=== PATIENT | female | born 1960 | race Hispanic/Latino ===

== ENCOUNTER 2021-10-18 16:38 | Emergency (ER) | payer BC ==
[2021-10-18] MEDS ORDERED: HYDROCODONE/CHLORPHEN 5 ML/OSYR ONE (17:25)
[2021-10-18] MEDS ORDERED: ONDANSETRON 4 MG (ODT) TAB ONE (17:26)
--- NOTE | 2021-10-18 19:46 | ER ---
Nurse's Notes [facility] Name: Patti Friedman Age: 61 yrs Sex: Female : 1960 Arrival Date: 10/18/2021 Time: 16:40 Bed 17 Private MD: Diagnosis: Coronavirus infection, unspecified Presentation: 10/18 16:54 Chief complaint: Patient states: pt presented with body aches, congestion, and cough rojo x3. Coronavirus screen: Vaccine status: Patient reports being unvaccinated. Ebola Screen: Patient denies travel to an Ebola-affected area in the 21 days before illness onset. Initial Sepsis Screen: Does the patient meet any 2 criteria? Does the patient have a suspected source of infection? No. Patient's initial sepsis screen is negative. Risk Assessment: Do you want to hurt yourself or someone else? Patient reports no desire to harm self or others. Onset of symptoms was October 15, 2021. 16:54 Method Of Arrival: Wheelchair rojo 16:54 Acuity: MIGUEL ANGEL 3 rojo Triage Assessment: 16:59 General: Appears in no apparent distress. Behavior is calm, cooperative. Pain: rojo Complains of pain in generlized body aches. Historical: - Allergies: 16:59 No Known Allergies; rojo - PMHx: 16:59 None; rojo - PSHx: 16:59 None; rojo - Immunization history:: Adult Immunizations up to date. - Social history:: Smoking status: Patient denies any tobacco usage or history of. Screenin:00 Abuse screen: Denies threats or abuse. Denies injuries from another. Nutritional bp screening: No deficits noted. Tuberculosis screening: No symptoms or risk factors identified. Fall Risk None identified. Assessment: 17:00 General: SEE TRIAGE NOTE. bp Vital Signs: 16:54 BP 111 / 75; Pulse 75; Resp 18; Temp 98.5; Pulse Ox 99% ; Weight 97.07 kg; Height 5 ft. rojo 2 in. (157.48 cm); 16:54 Body Mass Index 39.14 (97.07 kg, 157.48 cm) rojo ED Course: 16:40 Patient arrived in ED. as 16:59 Triage completed. rojo 16:59 Arm band placed on. rojo 17:00 Wicho Wilson, AMADOU is Primary Nurse. bp 17:00 Tao Johnson NP is PHCP. pm1 17:00 Farshad Orosco MD is Attending Physician. pm1 17:00 Patient has correct armband on for positive identification. Bed in low position. Call bp light in reach. Side rails up X2. Adult w/ patient. 20:28 No provider procedures requiring assistance completed. Patient did not have IV access ll3 during this emergency room visit. Administered Medications: 17:20 Drug: Tussionex Pennkinetic ER (chlorpheniramine-hydrocodone) Suspension 5 ml Route: PO;bp 17:20 Drug: Zofran (Ondansetron) 4 mg Route: PO; bp Medication: 17:00 VIS not applicable for this client. bp Outcome: 19:45 Discharge ordered by . pm1 20:28 Discharged to home ambulatory, with significant other. ll3 20:28 Condition: stable 20:28 Discharge instructions given to patient, significant other, Instructed on discharge instructions, follow up and referral plans. medication usage, Demonstrated understanding of instructions, follow-up care, medications, Prescriptions given X 2. 20:29 Patient left the ED. ll3 Signatures: Zuleika Turcios as Tao Johnson, STEFANI APPLICATION HELPER pm1 Wicho Wilson, RN RN bp Bernice Bajwa, AMADOU RN ll3 Donita Ramsay RN RN rojo
--- NOTE | 2021-10-18 19:46 | EDPHYS ---
Physician Documentation [facility] Name: Patti Friedman Age: 61 yrs Sex: Female : 1960 Arrival Date: 10/18/2021 Time: 16:40 Bed 17 Private MD: ED Physician Farshad Orosco HPI: 10/18 17:35 This 61 yrs old Female presents to ER via Wheelchair with complaints of r/o pm1 covid. 17:35 The patient or guardian reports cough, flu symptoms. pm1 17:35 Onset: The symptoms/episode began/occurred 3 day(s) ago. Severity of symptoms: in the pm1 emergency department the symptoms are actually worse. Modifying factors: The symptoms are alleviated by nothing, the symptoms are aggravated by nothing. Associated signs and symptoms: Pertinent positives: sore throat, Pertinent negatives: chest pain, Shortness of breath. The patient has not recently seen a physician. Patient took home test for COVID and was negative today. Historical: - Allergies: 16:59 No Known Allergies; rojo - PMHx: 16:59 None; rojo - PSHx: 16:59 None; rojo - Immunization history:: Adult Immunizations up to date. - Social history:: Smoking status: Patient denies any tobacco usage or history of. ROS: 17:35 Cardiovascular: Negative for chest pain, palpitations, and edema. pm1 17:35 Eyes: Negative for injury, pain, redness, and discharge. 17:35 Abdomen/GI: Negative for abdominal pain, nausea, vomiting, diarrhea, and constipation, Back: Negative for injury and pain, MS/Extremity: Negative for injury and deformity, Skin: Negative for injury, rash, and discoloration. 17:35 Neuro: Negative for headache, weakness, numbness, tingling, and seizure. 17:35 Constitutional: Positive for body aches, chills, fever. 17:35 ENT: Positive for rhinorrhea, sore throat, Negative for ear pain. 17:35 Respiratory: Positive for cough, Negative for shortness of breath. 17:35 All other systems are negative. Exam: 17:35 Constitutional: This is a well developed, well nourished patient who is awake, alert, pm1 and in no acute distress. Head/Face: Normocephalic, atraumatic. 17:35 Back: No spinal tenderness. No costovertebral tenderness. Full range of motion. Skin: Warm, dry with normal turgor. Normal color with no rashes, no lesions, and no evidence of cellulitis. MS/ Extremity: Pulses equal, no cyanosis. Neurovascular intact. Full, normal range of motion. 17:35 Eyes: Exam is negative for acute changes, Pupils: no acute changes, Extraocular movements: no acute changes, Conjunctiva: no acute changes, no injection. 17:35 ENT: Exam is negative for acute changes, Mouth: no acute changes, Lips: normal, moist, Oral mucosa: normal, pink and intact, moist. 17:35 Cardiovascular: Exam negative for acute changes, Rate: normal, Rhythm: regular, Pulses: no pulse deficits are appreciated, Heart sounds: normal, normal S1and S2. 17:35 Respiratory: Exam negative for acute changes, respiratory distress, shortness of breath, Breath sounds: are clear throughout. 17:35 Neuro: Exam negative for acute changes, Orientation: is normal, Mentation: is normal, Motor: is normal, moves all fours. Vital Signs: 16:54 BP 111 / 75; Pulse 75; Resp 18; Temp 98.5; Pulse Ox 99% ; Weight 97.07 kg; Height 5 ft. rojo 2 in. (157.48 cm); 16:54 Body Mass Index 39.14 (97.07 kg, 157.48 cm) rojo MDM: 17:06 Patient medically screened. pm1 19:44 Data reviewed: vital signs. Data interpreted: Pulse oximetry: on room air is 99 %. pm1 Interpretation: normal. Counseling: I had a detailed discussion with the patient and/or guardian regarding: the historical points, exam findings, and any diagnostic results supporting the discharge/admit diagnosis, lab results, the need for outpatient follow up, to return to the emergency department if symptoms worsen or persist or if there are any questions or concerns that arise at home. 10/18 17:01 Order name: COVID-19 SARS RT PCR (Document "Date of Onset" if Symptomatic); Complete pm1 Time: 19:44 10/18 17:35 Order name: Influenza Screen (A ; Complete Time: 18:06 EDMS 10/18 17:35 Order name: Group A Streptococcus Rapid Sc; Complete Time: 18:06 EDMS 10/18 18:03 Order name: Throat Culture EDMS Administered Medications: 17:20 Drug: Tussionex Pennkinetic ER (chlorpheniramine-hydrocodone) Suspension 5 ml Route: PO;bp 17:20 Drug: Zofran (Ondansetron) 4 mg Route: PO; bp Disposition Summary: 10/18/21 19:45 Discharge Ordered Location: Home pm1 Problem: new pm1 Symptoms: have improved pm1 Condition: Stable pm1 Diagnosis - Coronavirus infection, unspecified pm1 Followup: pm1 - With: Emergency Department - When: As needed - Reason: Worsening of condition Followup: pm1 - With: Private Physician - When: 2 - 3 days - Reason: Recheck today's complaints, Continuance of care, Re-evaluation by your physician Discharge Instructions: - Discharge Summary Sheet pm1 - COVID-19 pm1 - COVID-19 Frequently Asked Questions pm1 - 10 Things You Can Do to Manage Your COVID-19 Symptoms at Home - [facility] pm1 - COVID-19: Quarantine vs. Isolation - [facility] pm1 Forms: - Medication Reconciliation Form pm1 - Thank You Letter pm1 - Antibiotic Education pm1 - Prescription Opioid Use pm1 - Work release form pm1 Prescriptions: - ondansetron 4 mg Oral tablet,disintegrating - place 1 tablet by TRANSLINGUAL route every 8 hours As needed; 12 tablet; pm1 Refills: 0, Product Selection Permitted - Guaifenesin AC 10-100 mg/5 mL Oral Liquid - take 10 milliliters by ORAL route every 4 hours As needed; 240 milliliter; pm1 Refills: 0, Product Selection Permitted Signatures: Dispatcher [employer] EDMS Tao Johnson NP BOAT BUILDER pm1 Wicho Wilson, RN RN bp Keeley-Donita Mendez RN RN rojo Corrections: (The following items were deleted from the chart) 18:45 18:34 Influenza Screen (A \\T\\ B)+BA.LAB.BRZ ordered. EDMS EDMS 18:45 18:34 Group A Streptococcus Rapid Sc+BA.LAB.BRZ ordered. EDMS EDMS
[2021-10-18 20:41] VITALS: BP 111/75; TEMP 98.5; O2SAT 99
== END 2021-10-18 20:29 | disposition home or self-care (01) ==
LOC: ER 16:38
DX: R05.9 Cough, unspecified (principal); U07.1 COVID-19; R09.81 Nasal congestion; R52 Pain, unspecified
CPT/HCPCS: 87070; 87081; 87804 ×2; 99283; U0003; Q0162

== ENCOUNTER 2022-02-02 18:07 | Emergency (ER) | payer BC ==
--- OUTSIDE RECORDS SUMMARY | 2022-02-02 18:10 | XMS REPORT | Continuity of Care Document ---
:1960 Author Organization [facility] t Address [address] [place] [address] Care Team Providers Name Role Phone Lab, Adc Fam Pob I Attending Clinician Unavailable Narciso Burdick Attending Clinician NARCISO HICKS Attending Clinician Unavailable Payers Payer Name Policy Type Policy Number Effective Date Expiration Date S ource Problems Condition Condition Condition Status Onset Resolution Last Treating Co mments Source Name Details Category Date Date Treatment Clinician Date Microalbum Microalbum Problem Active C ommon inuria inuria Spirit - [facility] 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 [facility] Hyperlipid Hyperlipid Problem Active C ommon emia, emia, Spirit unspecifie unspecifie - [facility] hyperlipid hyperlipid [facility] emia type emia type [facility] Adult BMI Adult BMI Problem Active Com mon 39.0-39.9 39.0-39.9 Spir it kg/sq m kg/sq m [facility] Allergies, Adverse Reactions, Alerts Allergy Allergy Status Severity Reaction(s) Onset Inactive Treating Comm ents Source Name Type Date Date Clinician NO KNOWN Drug Active Univers ALLERGIE Class ity of [facility] Social History Social Habit Start Date Stop Date Quantity Comments Source [facility] Status Start Date Stop Date Source [facility] Medications Ordered Filled Start Stop Current Ordering Indication Dosage Frequency Signature Comments Components Source Medication Medication Date Date Medication? Clinician (SIG) Name Name GlidevonteZIDE GlipiZIDE Yes Cornel 1 tablet Common 09-18 Chen Spirit 00:00: - [facility] Procedures This patient has no known procedures. Encounters Start End Encounter Admission Attending Care Care Encounter Source Date/Time Date/Time Type Type Clinicians Facility Department ID 2019-10-24 2019-10-24 Laboratory Lab, Adc Fam Pob I [facility] [id number] Univers 10:44:27 11:04:27 Only Narciso Hicks [id number] [facility] [place] [id number] Enio as Professio [id number] Ak dical nal [address] 2019-10-24 2019-10-24 Outpatient R KURT [facility] [id number] Univers 10:40:00 10:40:00 NARCISO jason [facility] 2019-10-24 2019-10-24 Letter Kurt [facility] [id number] Univers 00:00:00 00:00:00 (Out) Narciso Cosme [id number] it [facility] [place] [id number] Enio as Professio [phone] [facility] [address] 2017-10-02 2017-10-02 Out[facility] [id number] Common 11:39:00 11:39:[address] [facility] 2017-09-18 2017-09-18 Out[facility] [id number] Common 09:39:00 09:39:[address] [facility] 2017-09-04 2017-09-04 [facility] [id number] Common 15:29:00 15:29:[address] [facility] 2017-08-10 2017-08-10 Outpatient Edison Gaytan [id number] Common 09:45:00 09:45:00 t thereNow [facility] TAPQUAD [facility] Results This patient has no known results.
[2022-02-02 19:20] LABS: Urine Blood Trace-intact (Negative); Urine Glucose 3+ (Negative); Urine Protein Negative (Negative); Urine Specific Gravity 1.025 (1.005-1.030)
[2022-02-02 19:30] LABS: Absolute Lymphocytes (CBC) 2.7 K/uL (0.7-4.9); Hematocrit 44.6 % (36.0-45.0); Lymphocytes % 34.1 % (15.3-44.8); MCV 88.5 fL (80-100); RBC Red Blood Cell Count 5.03 M/uL (3.86-4.86)
[2022-02-02 19:46] LABS: ALT/SGPT 26 U/L (12-78); Albumin 3.7 g/dL (3.4-5.0); Alkaline Phosphatase 159 U/L (45-117); BUN Blood Urea Nitrogen 19 mg/dL (7-18); Bicarbonate 26 mmol/L (21-32); Bilirubin Total 0.5 mg/dL (0.2-1.0); Creatine Phosphokinase 81 U/L (26-192); Glomerular Filtration Rate 99 ml/min (=/>90); Glucose Level 316 mg/dL (74-106); Protein, Total 7.5 g/dL (6.4-8.2); Sodium Level 134 mmol/L (136-145)
[2022-02-02 19:47] LABS: AST/SGOT 25 U/L (15-37); Bilirubin Direct < 0.1 mg/dL (0-0.2); Magnesium 1.8 mg/dL (1.8-2.4); Potassium 4.8 mmol/L (3.5-5.1)
[2022-02-02] MEDS ORDERED: NA CHLORIDE 0.9% 50 ML IV ONE (19:50)
[2022-02-02] MEDS ORDERED: DIPHENHYDRAMINE 50 MG/ML VIAL ONE (19:50)
[2022-02-02] MEDS ORDERED: METOCLOPRAMIDE 10 MG/2mL INJ ONE (19:50)
[2022-02-02] MEDS ORDERED: NA CHLORIDE 0.9% 1,000 ML ONE (19:50)
--- NOTE | 2022-02-02 21:18 | ER ---
Nurse's Notes [facility] Name: Patti Friedman Age: 62 yrs Sex: Female : 1960 Arrival Date: 02/02/2022 Time: 18:10 Bed 3 Private MD: Diagnosis: Post-concussive syndrome Presentation: 02/02 18:36 Chief complaint: Patient states: Sent from urgent care due to symptoms not improving. ld1 Pt reports falling at work on 01/26/2022 - hit head on concrete. Unknown reason for fall or possible syncopal episode - remembers hitting head. Does not know if LOC occurred. Seen in this ER the day off fall - pt c/o dizziness and headache today. Coronavirus screen: At this time, the client does not indicate any symptoms associated with coronavirus-19. Ebola Screen: No symptoms or risks identified at this time. Initial Sepsis Screen: Does the patient meet any 2 criteria? No. Patient's initial sepsis screen is negative. Does the patient have a suspected source of infection? No. Patient's initial sepsis screen is negative. Risk Assessment: Do you want to hurt yourself or someone else? Patient reports no desire to harm self or others. Onset of symptoms was February 02, 2022. 18:36 Method Of Arrival: Ambulatory ld1 18:36 Acuity: MIGUEL ANGEL 3 ld1 Triage Assessment: 18:38 Headache History: The patient has had previous headaches and this one is similar to ld1 previous episodes. General: Appears in no apparent distress. comfortable, Behavior is calm, cooperative, appropriate for age. Pain: Complains of pain in face Pain does not radiate. Pain currently is 6 out of 10 on a pain scale. Quality of pain is described as pressure, throbbing, Pain began 2-3 days ago. Is intermittent. EENT: No signs and/or symptoms were reported regarding the EENT system. Neuro: Level of Consciousness is awake, alert, obeys commands, Oriented to person, place, time, situation, Reports dizziness, headache. Cardiovascular: Capillary refill < 3 seconds Patient's skin is warm and dry. Respiratory: Airway is patent Respiratory effort is even, unlabored. GI: Abdomen is round non-distended. : No signs and/or symptoms were reported regarding the genitourinary system. Derm: No signs and/or symptoms reported regarding the dermatologic system. Musculoskeletal: No signs and/or symptoms reported regarding the musculoskeletal system. Historical: - Allergies: 18:38 No Known Allergies; ld1 - PMHx: 18:38 diabetes mellitus; ld1 - PSHx: 18:38 None; ld1 - Immunization history:: Adult Immunizations up to date, Client reports having NOT received the Covid vaccine. - Social history:: Smoking status: Patient denies any tobacco usage or history of. Patient/guardian denies using alcohol. Screenin:25 Abuse screen: Denies threats or abuse. Nutritional screening: No deficits noted. vc1 Tuberculosis screening: No symptoms or risk factors identified. Fall Risk None identified. Assessment: 19:00 Reassessment: see triage assessment. mb9 20:28 Reassessment: Patient and/or family updated on plan of care and expected duration. Pain vc1 level reassessed. Patient is alert, oriented x 3, equal unlabored respirations, skin warm/dry/pink. Patient states feeling better. Patient states symptoms have improved. Pain: Complains of pain in HEAD Pain does not radiate. Pain currently is 4 out of 10 on a pain scale. Vital Signs: 18:36 BP 149 / 87; Pulse 79; Resp 18; Temp 97.6(TE); Pulse Ox 98% on R/A; Weight 99.34 kg; ld1 Height 5 ft. 2 in. (157.48 cm); Pain 6/10; 19:02 BP 127 / 79; Pulse 72; Resp 18; Pulse Ox 95% on R/A; vc1 20:00 BP 129 / 72; Pulse 63; Resp 13; Pulse Ox 96% on R/A; vc1 21:31 BP 138 / 86; Pulse 73; Resp 21 S; Pulse Ox 99% on R/A; as6 18:36 Body Mass Index 40.06 (99.34 kg, 157.48 cm) ld1 ED Course: 18:10 Patient arrived in ED. am2 18:38 Triage completed. ld1 18:38 Arm band placed on right wrist. EKG completed in triage. Results shown to MD. ld1 19:04 Farooq Arevalo, RN is Primary Nurse. as6 19:06 Amber Weeks MD is Attending Physician. sd2 19:09 Basic Metabolic Panel Sent. mb9 19:09 CBC with Diff Sent. mb9 19:09 CPK Sent. mb9 19:09 Hepatic Function Sent. mb9 19:09 Magnesium Sent. mb9 19:09 Protime (+inr) Sent. mb9 19:09 Ptt, Activated Sent. mb9 19:09 Inserted saline lock: 20 gauge in right upper arm, using aseptic technique. Blood mb9 collected. 19:19 Urine collected: clean catch specimen, cloudy. 20:25 Patient has correct armband on for positive identification. Bed in low position. Client vc1 placed on continuous cardiac and pulse oximetry monitoring. NIBP monitoring applied. 21:30 No provider procedures requiring assistance completed. IV discontinued, intact, as6 bleeding controlled, No redness/swelling at site. Pressure dressing applied. Administered Medications: 20:00 Drug: Reglan (metoCLOPramide) 10 mg Route: IVP; Site: right forearm; vc1 21:30 Follow up: Response: No adverse reaction as6 20:00 Drug: Benadryl (diphenhydrAMINE) 25 mg Route: IVP; Site: right forearm; vc1 21:29 Follow up: Response: No adverse reaction as6 20:01 Drug: NS 0.9% 1000 ml Route: IV; Rate: 1 bolus; Site: right forearm; vc1 21:30 Follow up: Response: No adverse reaction; IV Status: Completed infusion; IV Intake: as6 1000ml Medication: 21:31 VIS not applicable for this client. as6 Intake: 21:30 IV: 1000ml; Total: 1000ml. as6 Outcome: 21:18 Discharge ordered by . sd2 21:31 Discharged to home ambulatory, with family. as6 21:31 Condition: stable 21:31 Discharge instructions given to patient, Instructed on discharge instructions, follow up and referral plans. Demonstrated understanding of instructions, follow-up care. 21:31 Patient left the ED. as6 Signatures: Mony Abraham am2 Radha De La Cruz, RN RN ld1 Jennifer Sung Farooq Arevalo RN RN as6 America Mckeon RN RN vc1 Amber Weeks MD MD sd2 Nimco Jackson RN RN mb9 Corrections: (The following items were deleted from the chart) 18:40 18:36 Pulse 79bpm; Resp 18bpm; Pulse Ox 98% RA; Temp 97.6F Temporal; 99.34 kg; Height 5 ld1 ft. 2 in.; BMI: 40.0; Pain 6/10; ld1
--- NOTE | 2022-02-02 21:19 | EDPHYS ---
Physician Documentation [facility] Name: Patti Friedman Age: 62 yrs Sex: Female : 1960 Arrival Date: 02/02/2022 Time: 18:10 Bed 3 Private MD: ED Physician Amber Weeks HPI: 02/02 19:33 This 62 yrs old Female presents to ER via Ambulatory with complaints of sd2 Dizziness, Headache, Fall Injury - 1 wk ago. 19:34 62-year-old female with a history of diabetes presents with chief complaint of sd2 dizziness and headache as well as nausea since she had a fall 1 week ago at work. She reports she did hit her head and was seen at our ER with a negative CT scan at that time. She was seen for a 7-day follow-up at urgent care today for Workmen's Compensation and they told her to come here due to her symptoms not improving. However, the patient has had improved symptoms at home when she is not engaging in stimulating activities. Today was the first day she left the house and that is when she started having the symptoms again. She states she was sent to the ER for a repeat CT scan. She is not currently on blood thinners and has no other complaints. . Historical: - Allergies: 18:38 No Known Allergies; ld1 - PMHx: 18:38 diabetes mellitus; ld1 - PSHx: 18:38 None; ld1 - Immunization history:: Adult Immunizations up to date, Client reports having NOT received the Covid vaccine. - Social history:: Smoking status: Patient denies any tobacco usage or history of. Patient/guardian denies using alcohol. ROS: 19:34 Constitutional: Negative for fever, chills, and weight loss, Eyes: Negative for injury, sd2 pain, redness, and discharge, Cardiovascular: Negative for chest pain, palpitations, and edema, Respiratory: Negative for shortness of breath, cough, wheezing. Abdomen/GI: Negative for abdominal pain, vomiting, diarrhea. Positive for nausea. MS/Extremity: Negative for injury and deformity, Skin: Negative for injury, rash, and discoloration, Neuro: Positive for headache and dizziness. NEgative for numbness and tingling. Exam: 19:34 Constitutional: This is a well developed, well nourished patient who is awake, alert, sd2 and in no acute distress. Head/Face: Normocephalic, atraumatic. Eyes: EOMI, normal conjunctiva bilaterally Chest/axilla: Normal chest wall appearance and motion. Nontender with no deformity. Cardiovascular: Regular rate and rhythm with a normal S1 and S2. No gallops, murmurs, or rubs. 2+ distal pulses. Respiratory: Lungs have equal breath sounds bilaterally, clear to auscultation and percussion. No rales, rhonchi or wheezes noted. No increased work of breathing, no retractions or nasal flaring. Abdomen/GI: Soft, non-tender, with normal bowel sounds. No guarding or rebound. No evidence of tenderness throughout. Skin: Warm, dry with normal turgor. Normal color with no rashes, no lesions, and no evidence of cellulitis. MS/ Extremity: Pulses equal, no cyanosis. Neurovascular intact. Full, normal range of motion. Ambulatory without difficulty. Neuro: Awake and alert, GCS 15, oriented to person, place, time, and situation. Cranial nerves II-XII grossly intact. Motor strength 5/5 in all extremities. Sensory grossly intact. Cerebellar exam normal. Normal gait. Psych: Awake, alert, with orientation to person, place and time. Behavior, mood, and affect are within normal limits. Vital Signs: 18:36 BP 149 / 87; Pulse 79; Resp 18; Temp 97.6(TE); Pulse Ox 98% on R/A; Weight 99.34 kg; ld1 Height 5 ft. 2 in. (157.48 cm); Pain 6/10; 19:02 BP 127 / 79; Pulse 72; Resp 18; Pulse Ox 95% on R/A; vc1 20:00 BP 129 / 72; Pulse 63; Resp 13; Pulse Ox 96% on R/A; vc1 21:31 BP 138 / 86; Pulse 73; Resp 21 S; Pulse Ox 99% on R/A; as6 18:36 Body Mass Index 40.06 (99.34 kg, 157.48 cm) ld1 MDM: 19:06 Patient medically screened. sd2 19:34 Differential Diagnosis Differential diagnosis includes but is not limited to: Fracture, sd2 contusion, abrasion, closed head injury, pneumothorax, intra-abdominal injury, intracranial hemorrhage, spinal injury among others. Data reviewed: vital signs, nurses notes, old medical records. 21:16 Data reviewed: lab test result(s), EKG, radiologic studies. Counseling: I had a sd2 detailed discussion with the patient and/or guardian regarding: the historical points, exam findings, and any diagnostic results supporting the discharge/admit diagnosis, lab results, the need for outpatient follow up, to return to the emergency department if symptoms worsen or persist or if there are any questions or concerns that arise at home. Medical screen evaluation completed. [facility] emergency medical condition absent. ED course: Labs reviewed. Labs are grossly within normal clinical limits. NO significant acute abnormalities. Patient's symptoms improved at this time with treatment. Suspect post-concussive syndrome. Pt with negative CT already and symptoms are consistent with concussion. I do not see any indication for repeat CT at this time as symptoms have been improving until an exacerbation today when she left the home. Pt is not on blood thinners to be concerned for delayed bleed. Advised continued supportive measures and follow up outpatient. Pt in agreement and verbalizes understanding of discharge plan and strict return precautions.. 02/02 18:35 Order name: Basic Metabolic Panel; Complete Time: 19:49 ld1 02/02 18:35 Order name: CBC with Diff; Complete Time: 19:49 ld1 02/02 18:35 Order name: CPK; Complete Time: 19:49 ld1 02/02 18:35 Order name: Hepatic Function; Complete Time: 19:49 ld1 02/02 18:35 Order name: Magnesium; Complete Time: 19:49 ld1 02/02 18:35 Order name: Protime (+inr); Complete Time: 19:49 ld1 02/02 18:35 Order name: Ptt, Activated; Complete Time: 19:49 ld1 02/02 18:35 Order name: EKG; Complete Time: 18:36 ld1 02/02 18:35 Order name: Cardiac monitoring; Complete Time: 19:09 ld1 02/02 18:35 Order name: EKG - Nurse/Tech; Complete Time: 18:40 ld1 02/02 19:20 Order name: Urine Dipstick-Ancillary; Complete Time: 19:24 EDMS 02/02 18:35 Order name: IV Saline Lock; Complete Time: 19:08 ld1 02/02 18:35 Order name: Labs collected and sent; Complete Time: 19:08 ld1 02/02 18:35 Order name: NPO; Complete Time: 19:09 ld1 02/02 18:35 Order name: O2 Per Protocol; Complete Time: 18:40 ld1 02/02 18:35 Order name: O2 Sat Monitoring; Complete Time: 18:40 ld1 02/02 18:35 Order name: Urine Dipstick-Ancillary (obtain specimen); Complete Time: 19:20 ld1 Administered Medications: 20:00 Drug: Reglan (metoCLOPramide) 10 mg Route: IVP; Site: right forearm; vc1 21:30 Follow up: Response: No adverse reaction as6 20:00 Drug: Benadryl (diphenhydrAMINE) 25 mg Route: IVP; Site: right forearm; vc1 21:29 Follow up: Response: No adverse reaction as6 20:01 Drug: NS 0.9% 1000 ml Route: IV; Rate: 1 bolus; Site: right forearm; vc1 21:30 Follow up: Response: No adverse reaction; IV Status: Completed infusion; IV Intake: as6 1000ml Disposition Summary: 02/02/22 21:18 Discharge Ordered Location: Home sd2 Problem: an ongoing problem sd2 Symptoms: have improved sd2 Condition: Stable sd2 Diagnosis - Post-concussive syndrome sd2 Followup: sd2 - With: Private Physician - When: 2 - 3 days - Reason: Recheck today's complaints, Continuance of care, Re-evaluation by your physician Discharge Instructions: - Discharge Summary Sheet sd2 - Post-Concussion Syndrome sd2 Forms: - Medication Reconciliation Form sd2 - Thank You Letter sd2 - Antibiotic Education sd2 - Prescription Opioid Use sd2 Signatures: Dispatcher [employer] EDRadha Billings RN RN ld1 America Mckeon RN RN 1 Amber Weeks MD MD sd2 Farooq Arevalo RN as6
[2022-02-02 21:36] VITALS: TEMP 97.6
[2022-02-02 21:40] VITALS: BP 138/86; O2SAT 99
--- NOTE | 2022-02-03 16:15 | EKG ---
Test Date: 2022-02-02 Test Time: 18:39:53 Meter Engineer: MAHSA MEASUREMENT RESULTS: Intervals: Rate: 74 ND: 162 QRSD: 70 QT: 394 QTc: 437 [place]: P: 22 ND: 162 QRS: 25 T: 29 INTERPRETIVE STATEMENTS: Sinus rhythm with marked sinus arrhythmia Anterior infarct, age undetermined Abnormal ECG Compared to ECG 10/30/2018 10:44:22 Myocardial infarct finding now present Atrial premature complex(es) no longer present T-wave abnormality no longer present Electronically Signed On 02-03-22 16:14:13 CDT by Simon Stewart
== END 2022-02-02 21:31 | disposition home or self-care (01) ==
LOC: ER 18:07
DX: R42 Dizziness and giddiness (principal); F07.81 Postconcussional syndrome; E11.9 Type 2 diabetes mellitus without complications
CPT/HCPCS: 96361; 93005; 85025; 80048; 36415; 83735; 82550; 85610; 80076; 85730; 81003; 96375; 96374; 99284; J2765; J1200; J7030

== ENCOUNTER 2022-06-20 17:57 | Emergency (ER) | payer BC ==
--- OUTSIDE RECORDS SUMMARY | 2022-06-20 18:01 | XMS REPORT | Continuity of Care Document ---
:1960 Author Organization [facility] t Address [address] [place] [address] Care Team Providers Name Role Phone Lab, [...] Active C ommon inuria inuria Spirit - [facility] Type 2 Type 2 Problem Active Common diabetes diabetes Spirit mellitus mellitus - [facility] with other with other diabetic [facility] kidney kidney Medical complicati complicati Ce nter on on Type 2 Type 2 Problem Active Common diabetes diabetes Spirit mellitus mellitus - [facility] with with hyperglyce hyperglyce [facility] Subclinica Subclinica Problem Active C ommon l l Spirit hypothyroi hypothyroi - [facility] dism dism [facility] 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 emia type emia type [facility] Adult BMI Adult BMI Problem Active Com mon 39.0-39.9 39.0-39.9 Spir it kg/sq m kg/sq m [facility] Allergies, Adverse Reactions, Alerts Allergy Allergy Status Severity Reaction(s) Onset Inactive Treating Comm ents Source Name Type Date Date Clinician NO KNOWN Drug Active Univers ALLERGIE Class ity of [facility] Social History Social Habit Start Date Stop Date Quantity Comments [facility] Sm[facility] Status Start Date Stop Date Source Unknown [facility] Medications Ordered Filled Start Stop Current Ordering Indication Dosage Frequency Signature Comments Components Source Medication Medication Date Date Medication? Clinician (SIG) Name Name GlidevonteZIDE GlipiZIDE Yes Cornel 1 tablet Common 09-18 Chen Spirit 00:00: - [facility] 00 [facility] Procedures This patient has no known procedures. Encounters Start End Encounter Admission Attending Care Care Encounter Source Date/Time Date/Time Type Type Clinicians Facility Department ID 2019-10-24 2019-10-24 Laboratory Lab, Adc Fam Pob I [facility] [id number] Univers 10:44:27 11:04:27 Only Narciso Hicks [id number] ity of [place] [id number] Enio as Professio [phone] Ca dical nal [address] 2019-10-24 2019-10-24 Outpatient R KURT [facility] [id number] Univers 10:40:00 10:40:00 NARCISO jason [facility] 2019-10-24 2019-10-24 Letter Kurt [facility] [id number] Univers 00:00:00 00:00:00 (Out) Narciso Cosme [id number] it y of [place] [id number] Enio as Professio [phone] [facility] [address] 2017-10-02 2017-10-02 Out[facility] [id number] Common 11:39:00 11:39:00 t Mobile [employer] [address] [facility] 2017-09-18 2017-09-18 [facility] [id number] Common 09:39:00 09:39:[address] [facility] 2017-09-04 2017-09-04 Out[facility] [id number] Common 15:29:00 15:29:[address] [facility] 2017-08-10 2017-08-10 Outpatient Edison Gaytan [id number] Common 09:45:00 09:45:00 t Mobile Backstage [facility] Results This patient has no known results.
[2022-06-20 20:18] LABS: Absolute Lymphocytes (CBC) 2.8 K/uL (0.7-4.9); Hematocrit 41.9 % (36.0-45.0); Lymphocytes % 37.4 % (15.3-44.8); MCV 87.4 fL (80-100); MPV 8.7 fL (7.6-11.3)
[2022-06-20 20:23] LABS: Urine Blood 1+ (Negative); Urine Glucose 3+ (Negative); Urine Protein Negative (Negative)
[2022-06-20 20:42] LABS: Albumin 3.7 g/dL (3.4-5.0); Bilirubin Total 0.3 mg/dL (0.2-1.0); Protein, Total 7.1 g/dL (6.4-8.2)
[2022-06-20] MEDS ORDERED: ONDANSETRON 4 MG/2 ML VIAL ONE (21:10)
[2022-06-20] MEDS ORDERED: INSULIN -REGULAR HUMAN 50 UNIT/0.5 ML ML ONE (21:10)
[2022-06-20] MEDS ORDERED: PANTOPRAZOLE 40 MG INJ ONE (21:10)
[2022-06-20] MEDS ORDERED: NA CHLORIDE 0.9% 1,000 ML ONE (21:11)
--- NOTE | 2022-06-20 21:26 | RAD REPORT ---
EXAM DESCRIPTION: CT - Abdomen Pelvis W Contrast - 06/20/2022 9:07 pm CLINICAL HISTORY: Abdominal pain COMPARISON: none. TECHNIQUE: Computed axial tomography of the abdomen pelvis was obtained. 100 cc Isovue-300 was admin istered intravenously. Oral contrast was not requested which limits evaluation of bowel and appendix All CT scans are performed using dose optimization technique as appropriate and may include automated exposure control or mA/KV adjustment according to patient size. FINDINGS: 9 millimeter hepatic cyst Duodenal diverticul Spleen, pancreas, adrenal and kidneys appear unremarkable. Moderate diverticula stem from the colon without visualization of diverticulitis. Normal appendix. No adnexal mass Gallbladder calcification Umbilical hernia. The neck measures 1 centimeter. The herniated sac measures 4.2 centimeters IMPRESSION: Gallbladder calcifications. It is uncertain if these lie within the lumen representing s tones or lie within the the wall. If clinically indicated further evaluation with ultrasound could ob tained. Small to moderate umbilical hernia
--- NOTE | 2022-06-20 22:43 | EDPHYS ---
Physician Documentation [facility] Name: Patti Friedman Age: 62 yrs Sex: Female : 1960 Arrival Date: 06/20/2022 Time: 17:59 Bed 19 Private MD: ED Physician Thai Kwan Historical: - Allergies: 06/20 18:16 No Known Allergies; aa5 - PMHx: 18:16 diabetes mellitus; aa5 - PSHx: 18:16 None; aa5 - Immunization history:: Adult Immunizations unknown. - Social history:: Smoking status: Patient denies any tobacco usage or history of. ROS: 23:17 Constitutional: Negative for fever, chills, and weight loss. kb 23:17 Abdomen/GI: Positive for rectal bleeding. 23:17 All other systems are negative. Vital Signs: 18:14 BP 155 / 85; Pulse 73; Resp 18 S; Temp 97.1(TE); Pulse Ox 99% on R/A; Weight 98.88 kg aa5 (R); Height 5 ft. 3 in. (160.02 cm) (R); 22:01 BP 145 / 71; Pulse 58; Resp 17 S; Pulse Ox 98% on R/A; aa9 18:14 Body Mass Index 38.62 (98.88 kg, 160.02 cm) aa5 MDM: 18:14 Patient medically screened. kb 06/20 18:21 Order name: CBC with Diff kb 06/20 18:21 Order name: CMP kb 06/20 18:21 Order name: Lipase kb 06/20 18:21 Order name: CT Abd/Pelvis - IV Contrast Only kb 06/20 18:21 Order name: IV Saline Lock; Complete Time: 20:07 kb 06/20 18:21 Order name: Labs collected and sent; Complete Time: 20:07 kb 06/20 18:21 Order name: Urine Dipstick-Ancillary (obtain specimen); Complete Time: 20:23 kb 06/20 20:23 Order name: Urine Dipstick-Ancillary; Complete Time: 20:37 EDMS 06/20 20:44 Order name: Comprehensive Metabolic Panel; Complete Time: 20:57 EDMS 06/20 20:44 Order name: Lipase; Complete Time: 20:57 EDMS 06/20 20:50 Order name: CBC with Automated Diff; Complete Time: 20:57 EDMS 06/20 21:27 Order name: CT; Complete Time: 21:33 EDMS 06/20 22:17 Order name: Glucose, Ancillary Testing; Complete Time: 22:41 EDMS Administered Medications: 21:40 Drug: ProTONIX (pantoprazole) 40 mg Route: IVP; Site: right antecubital; aa9 22:13 Follow up: Response: No adverse reaction aa9 21:51 Drug: Insulin Regular Human 5 units {Co-Signature: [email or web address] (Michael Carballo RN).} Route: IVP; aa9 Site: right antecubital; 22:13 Follow up: Response: Blood sugar is lowered aa9 21:58 Drug: NS 0.9% 1000 ml Route: IV; Rate: 1 bolus; Site: right antecubital; aa9 21:58 Drug: Zofran (Ondansetron) 4 mg Route: IVP; Site: right antecubital; aa9 22:13 Follow up: Response: No adverse reaction aa9 Disposition Summary: 06/20/22 22:42 Discharge Ordered Location: Home kb Condition: Stable kb Diagnosis - Other hemorrhoids - externa kb - Hyperglycemia, unspecified kb Followup: kb - With: Emergency Department - When: As needed - Reason: Worsening of condition Followup: kb - With: Private Physician - When: 2 - 3 days - Reason: Recheck today's complaints, Continuance of care, Re-evaluation by your physician Discharge Instructions: - Discharge Summary Sheet kb - Hemorrhoids, [id number] kb - Hyperglycemia, [id number] kb - Type 2 Diabetes Mellitus, Diagnosis, Adult, [id number] kb Forms: - Medication Reconciliation Form kb - Thank You Letter kb - Antibiotic Education kb - Prescription Opioid Use kb Signatures: Dispatcher [employer] EDMS Malaika Gutiérrez, WHITE LEAD GRINDER-C WHITE LEAD GRINDER-Geraldine Dutta, RN RN aa5 Alaina Bartholomew, RN RN aa9 Michael Carballo RN jb4
--- NOTE | 2022-06-20 22:43 | ER ---
Nurse's Notes [facility] Name: Patti Friedman Age: 62 yrs Sex: Female : 1960 Arrival Date: 06/20/2022 Time: 17:59 Bed 19 Private MD: Diagnosis: Other hemorrhoids-externa;Hyperglycemia, unspecified Presentation: 06/20 18:14 Chief complaint: Patient states: bloody stools x 1 today, pt states "there were blood aa5 clots in the toilet". Pt reports vomiting x 2 days ago and abd discomfort. Coronavirus screen: nausea. Ebola Screen: Patient denies travel to an Ebola-affected area in the 21 days before illness onset. Initial Sepsis Screen: Does the patient meet any 2 criteria? No. Patient's initial sepsis screen is negative. Does the patient have a suspected source of infection? No. Patient's initial sepsis screen is negative. Risk Assessment: Do you want to hurt yourself or someone else? Patient reports no desire to harm self or others. Onset of symptoms was June 20, 2022. 18:14 Acuity: MIGUEL ANGEL 3 aa5 18:14 Method Of Arrival: Ambulatory aa5 Triage Assessment: 22:02 General: Appears in no apparent distress. comfortable, Behavior is calm, cooperative. aa9 23:16 : Denies vaginal bleeding. aa9 Historical: - Allergies: 18:16 No Known Allergies; aa5 - PMHx: 18:16 diabetes mellitus; aa5 - PSHx: 18:16 None; aa5 - Immunization history:: Adult Immunizations unknown. - Social history:: Smoking status: Patient denies any tobacco usage or history of. Screenin:01 [facility] ED Fall Risk Assessment (Adult) History of falling in the last 3 months, aa9 including since admission No falls in past 3 months (0 pts) Confusion or Disorientation No (0 pts) Intoxicated or Sedated No (0 pts) Impaired Gait No (0 pts) Mobility Assist Device Used No (0 pt) Altered Elimination No (0 pt) Score/Fall Risk Level 0 - 2 = Low Risk Oriented to surroundings, Maintained a safe environment, Educated pt \\T\\ family on fall prevention, incl call for assistance when getting out of bed. Abuse screen: Denies threats or abuse. Denies injuries from another. Nutritional screening: No deficits noted. Tuberculosis screening: No symptoms or risk factors identified. Assessment: 21:58 Reassessment: Patient appears in no apparent distress at this time. Pain: Complains of aa9 pain in headache. Neuro: Level of Consciousness is awake, alert, obeys commands, Oriented to person, place, time, situation. Respiratory: Airway is patent Respiratory effort is even, unlabored. GI: Reports cramping. :. 22:13 Reassessment: Patient appears in no apparent distress at this time. Patient and/or aa9 family updated on plan of care and expected duration. Pain level reassessed. Patient is alert, oriented x 3, equal unlabored respirations, skin warm/dry/pink. chaperoned Brock FINISHING RANGE FEEDER with rectal exam. 23:16 Reassessment: Patient appears in no apparent distress at this time. Patient and/or aa9 family updated on plan of care and expected duration. Pain level reassessed. Patient is alert, oriented x 3, equal unlabored respirations, skin warm/dry/pink. Patient denies pain at this time. Vital Signs: 18:14 BP 155 / 85; Pulse 73; Resp 18 S; Temp 97.1(TE); Pulse Ox 99% on R/A; Weight 98.88 kg aa5 (R); Height 5 ft. 3 in. (160.02 cm) (R); 22:01 BP 145 / 71; Pulse 58; Resp 17 S; Pulse Ox 98% on R/A; aa9 18:14 Body Mass Index 38.62 (98.88 kg, 160.02 cm) aa5 ED Course: 17:59 Patient arrived in ED. rg4 18:01 Malaika Gutiérrez FNP-C [facility] kb 18:01 Thai Kwan DO is Attending Physician. kb 18:14 Arm band placed on. aa5 18:16 Triage completed. aa5 20:07 CBC with Diff Sent. bc6 20:07 CMP Sent. bc6 20:07 Lipase Sent. bc6 20:07 Inserted saline lock: 20 gauge in right antecubital area, using aseptic technique. bc6 22:02 Alaina Bartholomew, RN is Primary Nurse. aa9 22:02 Patient has correct armband on for positive identification. Bed in low position. Call aa9 light in reach. Side rails up X2. Pulse ox on. NIBP on. 23:16 No provider procedures requiring assistance completed. IV discontinued, intact, aa9 bleeding controlled, No redness/swelling at site. Pressure dressing applied. Administered Medications: 21:40 Drug: ProTONIX (pantoprazole) 40 mg Route: IVP; Site: right antecubital; aa9 22:13 Follow up: Response: No adverse reaction aa9 21:51 Drug: Insulin Regular Human 5 units {Co-Signature: [email or web address] (Michael Carballo RN).} Route: IVP; aa9 Site: right antecubital; 22:13 Follow up: Response: Blood sugar is lowered aa9 21:58 Drug: NS 0.9% 1000 ml Route: IV; Rate: 1 bolus; Site: right antecubital; aa9 21:58 Drug: Zofran (Ondansetron) 4 mg Route: IVP; Site: right antecubital; aa9 22:13 Follow up: Response: No adverse reaction aa9 Medication: 22:02 VIS not applicable for this client. aa9 Outcome: 22:42 Discharge ordered by MD. gutierrez 23:16 Discharged to home ambulatory. aa9 23:16 Condition: stable 23:16 Discharge instructions given to patient, Instructed on discharge instructions, follow up and referral plans. medication usage, Demonstrated understanding of instructions, follow-up care, medications. 23:17 Patient left the ED. aa9 Signatures: Malaika Gutiérrez, FINISHING RANGE FEEDER-C FINISHING RANGE FEEDER-Geraldine Dutta, RN RN aa5 Raysa Quiroz rg4 Alaina Bartholomew RN RN aa9 Shauna Conrad6 Michael Carballo RN jb4
== END 2022-06-20 23:17 | disposition home or self-care (01) ==
LOC: ER 17:57
DX: K64.8 Other hemorrhoids (principal); E11.65 Type 2 diabetes mellitus with hyperglycemia
CPT/HCPCS: 96361; 85025; 36415; 82947; 81003; 83690; 80053; 74177; 96375; 96374; 99284; Q9967; J1815; C9113; J2405; J7030

== ENCOUNTER 2022-06-24 10:44 | Day surgery (SDC) | payer BC ==
--- NOTE | 2022-06-23 13:53 | RAD REPORT ---
EXAM DESCRIPTION: RAD - Chest Pa And Lat (2 Views) - 06/23/2022 1:46 pm CLINICAL HISTORY: PRE OP RIGID PROCTO POSS HEMORRHOIDECTOMY Chest pain. COMPARISON: CHEST PA AND LAT 2 VIEW dated 04/27/2015; CHEST PA AND LAT 2 VIEW dated 05/21/2014; CHEST P A AND LAT 2 VIEW dated 01/26/2013 TECHNIQUE: PA and lateral views of the chest were obtained. FINDINGS: The lungs are hyperexpanded compatible with COPD. The heart is upper limit of normal in si ze. No fracture or aggressive bony process. IMPRESSION: COPD without acute process identified.
[2022-06-24] MEDS ORDERED: CEFAZOLIN SODIUM 1 GM/VIAL ONE (11:06)
[2022-06-24] MEDS ORDERED: NA CHLORIDE 0.9% 1,000 ML ONE (11:06)
[2022-06-24] MEDS ORDERED: BUPIVACAINE 0.5% PF 10 ML VIAL ONE (11:45)
[2022-06-24] MEDS ORDERED: LIDOCAINE 2% MPF 5 ML VIAL ONE (11:47)
[2022-06-24] MEDS ORDERED: FENTANYL CITR 100 MCG/2 ML ONE (11:47)
[2022-06-24] MEDS ORDERED: propofoL 200 MG/20 ML VIAL IV ONE (11:47)
[2022-06-24] MEDS ORDERED: MIDAZOLAM HCL 2 MG/2 ML INJ ONE (11:47)
[2022-06-24] MEDS ORDERED: ONDANSETRON 4 MG/2 ML VIAL ONE (11:47)
--- NOTE | 2022-06-24 12:43 | P.BOP ---
Preoperative diagnosis: BRBPR Postoperative diagnosis: Melena. int and ext hemorrhoid Primary procedure: EUA , anoscopy, rigid proctoscopy Estimated blood loss: none Specimen: none Findings: Large amt of melena on rectum, unable to see active bleeding from hemorrhio Anesthesia: General Complications: None Transferred to: Recovery Room Condition: Good
[2022-06-24 14:22] VITALS: BP 107/62; TEMP 97.7; O2SAT 96
== END 2022-06-24 14:12 | disposition home or self-care (01) ==
LOC: OR 10:44
PROVIDERS: ATTEND Surgery
PROC: 0DJD8ZZ Inspection of Lower Intestinal Tract, Via Natural or Artificial Opening Endoscopic (ICD-10-PCS; principal; 2022-06-24 12:30)
DX: K62.5 Hemorrhage of anus and rectum (principal); K64.8 Other hemorrhoids; K64.4 Residual hemorrhoidal skin tags
CPT/HCPCS: 71046; 82947; J0690; J2001; J2250; J2405; J2704; J3010; J7030

== ENCOUNTER → 2022-06-29 | Day surgery (SDC) | payer BC ==
[~2022-06-29] MED LIST: EPINEPHRINE/PF 1 MG/ML AMP ONE; LIDOCAINE 1% MPF 5 ML VIAL ONE; NA CHLORIDE 0.9% 1,000 ML ONE; propofoL 200 MG/20 ML VIAL IV ONE
[2022-06-29 08:56] VITALS: BP 123/64; TEMP 98.3; O2SAT 100
== END ==
LOC: OR 05:51
PROVIDERS: ATTEND Surgery
PROC: 0DBM8ZX Excision of Descending Colon, Via Natural or Artificial Opening Endoscopic, Diagnostic (ICD-10-PCS; principal; 2022-06-29 07:30)
DX: K92.1 Melena (principal); K57.30 Diverticulosis of large intestine without perforation or abscess without bleeding; K64.4 Residual hemorrhoidal skin tags; K64.8 Other hemorrhoids; D12.5 Benign neoplasm of sigmoid colon
CPT/HCPCS: 82947; 88305; J0171; J2001; J2704; J7030

== ENCOUNTER 2022-09-30 11:34 | Emergency (ER) | payer BC ==
--- OUTSIDE RECORDS SUMMARY | 2022-09-30 11:57 | XMS REPORT | Continuity of Care Document ---
:1960 Author Organization [facility] t Address 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 - [facility] with other with other diabetic [facility] kidney kidney Medical complicati complicati Ce nter on on 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 Adult BMI Adult BMI Problem Active Com mon 39.0-39.9 39.0-39.9 Spir it kg/sq m kg/sq m [facility] Allergies, Adverse Reactions, Alerts Allergy Allergy Status Severity Reaction(s) Onset Inactive Treating Comm ents Source Name Type Date Date Clinician NO KNOWN Drug Active Univers ALLERGIE Class ity of S [facility] Social History Social Habit Start Date Stop Date Quantity Comments Source [facility] Smoking Status Start Date Stop Date Source Unknown if ever smoked [facility] Medications Ordered Filled Start Stop Current Ordering Indication Dosage Frequency Signature Comments Components Source Medication Medication Date Date Medication? Clinician (SIG) Name Name GlidevonteZIDE GlipiZIDE Yes Cornel 1 tablet Common 09-18 Chen Spirit 00:00: - [facility] 00 [facility] Procedures This patient has no known procedures. Encounters Start End Encounter Admission Attending Care Care Encounter Source Date/Time Date/Time Type Type Clinicians Facility Department ID 2019-10-24 2019-10-24 Laboratory Lab, Adc Fam Pob I [facility] 1.2. [id number] Univers 10:44:27 11:04:27 Only Narciso Hicks [id number] ity of [place] [id number] Enio as Professio [phone] De dical nal [address] 2019-10-24 2019-10-24 Outpatient R KURT [facility] [id number] Univers 10:40:00 10:40:00 NARCISO jason [facility] 2019-10-24 2019-10-24 Letter Kurt [facility] [id number] Univers 00:00:00 00:00:00 (Out) Narciso Cosme [id number] it y of [place] [id number] Enio as Professio [phone] [facility] [address] 2017-10-02 2017-10-02 [facility] [id number] Common 11:39:00 11:39:[address] [facility] 2017-09-18 2017-09-18 Out[facility] [id number] Common 09:39:00 09:39:00 [address] [facility] 2017-09-04 2017-09-04 [facility] [id number] Common 15:29:00 15:29:00 [address] [facility] 2017-08-10 2017-08-10 Outpatient Edison Gaytan 13 [id number] Common 09:45:00 09:45:00 t [employer] [facility] [employer] [facility] Results This patient has no known results.
[2022-09-30] MEDS ORDERED: TDAP (DIPHTH,PERTUSS(ACELL),TET VAC) 0.5 ML VIAL IMVAC ONE (12:31)
--- NOTE | 2022-09-30 13:13 | ER ---
Nurse's Notes [facility] Name: Patti Friedman Age: 62 yrs Sex: Female : 1960 Arrival Date: 09/30/2022 Time: 11:34 Bed 24 Private MD: Diagnosis: Contusion of left knee;patellar spur Presentation: 09/30 11:58 Chief complaint: Patient states: A beam fell off hitting her left knee while moving [facility] some beams. Taken ibuprofen x2 prior to arrival. 11:58 Coronavirus screen: Vaccine status: Patient reports being unvaccinated. Ebola Screen: nj Patient denies travel to an Ebola-affected area in the 21 days before illness onset. Initial Sepsis Screen: Does the patient meet any 2 criteria? No. Patient's initial sepsis screen is negative. Does the patient have a suspected source of infection? No. Patient's initial sepsis screen is negative. Risk Assessment: Do you want to hurt yourself or someone else? Patient reports no desire to harm self or others. Onset of symptoms was September 30, 2022. 11:58 Method Of Arrival: Ambulatory [facility] 11:58 Acuity: MIGUEL ANGEL 4 [facility] Historical: - Allergies: 12:46 No Known Allergies; nj1 - PMHx: 12:46 diabetes mellitus; nj1 - Immunization history:: Client reports having NOT received the Covid vaccine. - Social history:: Smoking status: Patient denies any tobacco usage or history of. Screenin:01 [facility] ED Fall Risk Assessment (Adult) History of falling in the last 3 months, [facility] including since admission No falls in past 3 months (0 pts) Confusion or Disorientation No (0 pts) Intoxicated or Sedated No (0 pts) Impaired Gait No (0 pts) Mobility Assist Device Used No (0 pt) Altered Elimination No (0 pt) Score/Fall Risk Level 0 - 2 = Low Risk Oriented to surroundings, Maintained a safe environment, Hourly rounding (assess needs \T\ fall precautionary measures) done. Abuse screen: Denies threats or abuse. Denies injuries from another. Nutritional screening: No deficits noted. Tuberculosis screening: No symptoms or risk factors identified. Assessment: 12:00 General: Appears in no apparent distress. comfortable, Behavior is calm, cooperative, nj appropriate for age. 12:00 Pain: Complains of pain in left knee Pain currently is 5 out of 10 on a pain scale. at nj1 worst was 7 out of 10 on a pain scale. Alleviated by rest, Aggravated by Movement. Neuro: Level of Consciousness is awake, alert, obeys commands, Oriented to person, place, time, situation. Cardiovascular: Patient's skin is warm and dry. Respiratory: Airway is patent Respiratory effort is even, unlabored. Musculoskeletal: Reports pain in left knee. 13:00 Reassessment: Patient appears in no apparent distress at this time. No changes from [facility] previously documented assessment. Patient and/or family updated on plan of care and expected duration. Pain level reassessed. Patient is alert, oriented x 3, equal unlabored respirations, skin warm/dry/pink. Vital Signs: 11:58 BP 133 / 75; Pulse 74; Resp 17; Temp 97.7; Pulse Ox 99% ; Weight 99.79 kg; Height 5 ft. nj1 3 in. ; Pain 5/10; 13:00 BP 124 / 73; Pulse 73; Resp 18; Pulse Ox 96% on R/A; Pain 5/10; nj1 11:58 Body Mass Index 38.97 (99.79 kg, 160.02 cm) nj1 11:58 Pain Scale: Adult nj1 13:00 Pain Scale: Adult nj1 ED Course: 11:36 Patient arrived in ED. mr 11:45 Roro Stallings F[facility]-C [facility] snw 11:45 Kye Diallo MD is Attending Physician. snw 11:48 Anita Zaidi, AMADOU is Primary Nurse. nj1 12:00 Patient has correct armband on for positive identification. Bed in low position. Call [facility] light in reach. Adult w/ patient. 12:46 Triage completed. nj1 12:47 Arm band placed on. nj1 13:01 Knee Left 3 View XRAY In Process Unspecified. EDMS 13:20 Azar wrap to left knee. nj1 13:30 No provider procedures requiring assistance completed. Patient did not have IV access nj during this emergency room visit. Administered Medications: 12:41 Drug: Boostrix Tdap IM 0.5 ml {Note: 4547C, 03/04/2023.} Route: IM; Site: left deltoid; nj1 13:12 Follow up: Response: No adverse reaction nj1 Medication: 12:40 Vaccine Information Statement (VIS) provided today. Questions and/or concerns nj1 addressed. VIS edition date: November 20, 2020. Outcome: 13:12 Discharge ordered by . billy 13:30 Discharged to home via ambulance, with family. nj1 13:30 Condition: stable 13:30 Discharge instructions given to patient, Instructed on discharge instructions, follow up and referral plans. medication usage, Azar wrap Demonstrated understanding of instructions, follow-up care, medications, Azar wrap (compression) 13:43 Patient left the ED. nj1 Signatures: Dispatcher [employer] EDMS Roro Stallings, LUMBER LOADER-C LUMBER LOADER-Csnw BeltranNimco Norma, RN RN nj1 Corrections: (The following items were deleted from the chart) 12:59 12:41 Boostrix Tdap IM 0.5 ml IM in left deltoid nj1 nj1
--- NOTE | 2022-09-30 13:13 | EDPHYS ---
Physician Documentation [facility] Name: Patti Friedman Age: 62 yrs Sex: Female : 1960 Arrival Date: 09/30/2022 Time: 11:34 Bed 24 Private MD: ED Physician Kye Diallo HPI: 09/30 12:09 This 62 yrs old Female presents to ER via Unassigned with complaints of Knee snw Injury. 12:09 The patient presents with an injury, pain, that is acute. The complaints affect the snw left knee. Context: The problem was sustained at work, resulted from a crush injury, from a heavy object, the patient can partially bear weight. Onset: The symptoms/episode began/occurred suddenly, just prior to arrival. Associated signs and symptoms: Pertinent positives: swelling. Severity of symptoms: At their worst the symptoms were moderate. The patient has not experienced similar symptoms in the past. Historical: - Allergies: 12:46 No Known Allergies; nj1 - PMHx: 12:46 diabetes mellitus; nj1 - Immunization history:: Client reports having NOT received the Covid vaccine. - Social history:: Smoking status: Patient denies any tobacco usage or history of. ROS: 12:09 Constitutional: Negative for fever, chills, and weight loss, Eyes: Negative for injury, snw pain, redness, and discharge, ENT: Negative for injury, pain, and discharge, Neck: Negative for injury, pain, and swelling, Cardiovascular: Negative for chest pain, palpitations, and edema, Respiratory: Negative for shortness of breath, cough, wheezing, and pleuritic chest pain, Abdomen/GI: Negative for abdominal pain, nausea, vomiting, diarrhea, and constipation, Back: Negative for injury and pain, : Negative for injury, bleeding, discharge, and swelling, Skin: Negative for injury, rash, and discoloration, Neuro: Negative for headache, weakness, numbness, tingling, and seizure, Psych: Negative for depression, anxiety, suicide ideation, homicidal ideation, and hallucinations. 12:09 MS/extremity: Positive for injury or acute deformity, decreased range of motion, pain, of the left knee. Exam: 12:07 Constitutional: This is a well developed, well nourished patient who is awake, alert, snw and in no acute distress. Head/Face: Normocephalic, atraumatic. Eyes: Pupils equal round and reactive to light, extra-ocular motions intact. Lids and lashes normal. Conjunctiva and sclera are non-icteric and not injected. Cornea within normal limits. Periorbital areas with no swelling, redness, or edema. ENT: Nares patent. No nasal discharge, no septal abnormalities noted. Tympanic membranes are normal and external auditory canals are clear. Oropharynx with no redness, swelling, or masses, exudates, or evidence of obstruction, uvula midline. Mucous membranes moist. Neck: Trachea midline, no thyromegaly or masses palpated, and no cervical lymphadenopathy. Supple, full range of motion without nuchal rigidity, or vertebral point tenderness. No Meningismus. Chest/axilla: Normal chest wall appearance and motion. Nontender with no deformity. No lesions are appreciated. Cardiovascular: Regular rate and rhythm with a normal S1 and S2. No gallops, murmurs, or rubs. Normal PMI, no JVD. No pulse deficits. Respiratory: Lungs have equal breath sounds bilaterally, clear to auscultation and percussion. No rales, rhonchi or wheezes noted. No increased work of breathing, no retractions or nasal flaring. Abdomen/GI: Soft, non-tender, with normal bowel sounds. No distension or tympany. No guarding or rebound. No evidence of tenderness throughout. Back: No spinal tenderness. No costovertebral tenderness. Full range of motion. Neuro: Awake and alert, GCS 15, oriented to person, place, time, and situation. Cranial nerves II-XII grossly intact. Motor strength 5/5 in all extremities. Sensory grossly intact. Cerebellar exam normal. Normal gait. Psych: Awake, alert, with orientation to person, place and time. Behavior, mood, and affect are within normal limits. 12:07 Musculoskeletal/extremity: ROM: limited active range of motion due to pain, in the left knee, limited passive range of motion due to pain, Circulation is intact in all extremities. the left knee Sensation intact. 12:07 Skin: Appearance: normal except for affected area, injury, abrasion(s), very small abrasion noted, of the left knee, contusion(s), that are deep, of the left knee. Vital Signs: 11:58 BP 133 / 75; Pulse 74; Resp 17; Temp 97.7; Pulse Ox 99% ; Weight 99.79 kg; Height 5 ft. nj1 3 in. ; Pain 5/10; 13:00 BP 124 / 73; Pulse 73; Resp 18; Pulse Ox 96% on R/A; Pain 5/10; nj1 11:58 Body Mass Index 38.97 (99.79 kg, 160.02 cm) nj1 11:58 Pain Scale: Adult nj1 13:00 Pain Scale: Adult nj1 MDM: 11:56 Patient medically screened. snw 13:24 Differential diagnosis: dislocation, closed fracture, contusion, abrasion, tendonitis. snw Data reviewed: vital signs, nurses notes, radiologic studies. Counseling: I had a detailed discussion with the patient and/or guardian regarding: the historical points, exam findings, and any diagnostic results supporting the discharge/admit diagnosis, radiology results, the need for outpatient follow up, for definitive care, to return to the emergency department if symptoms worsen or persist or if there are any questions or concerns that arise at home. Special discussion: Based on the history and exam findings, there is no indication for further emergent testing or inpatient evaluation. I discussed with the patient/guardian the need to see the orthopedic surgeon for further evaluation of the symptoms. 09/30 12:03 Order name: Knee Left 3 View XRAY; Complete Time: 13:18 snw 09/30 13:10 Order name: Azar wrap-joint: knee left; Complete Time: 13:41 snw Administered Medications: 12:41 Drug: Boostrix Tdap IM 0.5 ml {Note: 4547C, 03/04/2023.} Route: IM; Site: left deltoid; nj1 13:12 Follow up: Response: No adverse reaction nj1 Disposition: 14:02 I reviewed the patient's care provided by Advanced Practice Provider \T\ agree w/ the jr11 diagnosis \T\ care plan. I personally saw the pt \T\ performed a substantive portion of the visit, incldng all aspects of the (History/Exam/Medical Decision Making). I reviewed the patient's care provided by the Advanced Practice Provider and agree with the diagnosis and treatment plan. Disposition Summary: 09/30/22 13:12 Discharge Ordered Location: Home snw Condition: Stable snw Diagnosis - Contusion of left knee snw - patellar spur snw Followup: snw - With: Emergency Department - When: As needed - Reason: Worsening of condition Followup: snw - With: Private Physician - When: 2 - 3 days - Reason: Recheck today's complaints, Continuance of care, Re-evaluation by your physician Discharge Instructions: - Discharge Summary Sheet snw - Contusion snw - Knee Sprain, Adult snw Forms: - Medication Reconciliation Form snw - Thank You Letter snw - Antibiotic Education snw - Prescription Opioid Use snw Prescriptions: - Diclofenac Sodium 75 mg Oral Tablet Sustained Release - take 1 tablet by ORAL route 2 times per day; 30 tablet; Refills: 0, Product snw Selection Permitted - orphenadrine citrate 100 mg Oral Tablet Sustained Release - take 1 tablet by ORAL route 2 times per day As needed; 20 tablet; Refills: 0, snw Product Selection Permitted Signatures: Dispatcher [employer] EDRoro Romero FNP-C PUBLIC ADDRESS SYSTEM INSTALLER-Csnw Kye Diallo MD MD [id number] Anita Zaidi RN RN nj1
--- NOTE | 2022-09-30 13:17 | RAD REPORT ---
EXAM DESCRIPTION: RAD - Knee Left 3 View - 09/30/2022 12:59 pm CLINICAL HISTORY: Left knee pain FINDINGS: No fracture or dislocation is seen. Marked osteoarthritis medial compartment. Patella femoral compartment also involves Mild lateral subluxation tibia the femur
[2022-09-30 14:30] VITALS: TEMP 97.7
[2022-09-30 14:31] VITALS: BP 124/73; O2SAT 96
== END 2022-09-30 13:43 | disposition home or self-care (01) ==
LOC: ER 11:34
DX: S80.02XA Contusion of left knee, initial encounter (principal); M77.32 Calcaneal spur, left foot; E11.9 Type 2 diabetes mellitus without complications
CPT/HCPCS: 96372; 99284

== ENCOUNTER 2023-02-11 01:57 | Emergency (ER) | payer BC ==
--- OUTSIDE RECORDS SUMMARY | 2023-02-11 02:00 | XMS REPORT | Continuity of Care Document ---
:1960 Author Organization [facility] t Address 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9 39.0-39.9 Spir it kg/sq m kg/sq m [facility] Allergies, Adverse Reactions, Alerts Allergy Allergy Status Severity Reaction(s) Onset Inactive Treating Comm ents Source Name Type Date Date Clinician NO KNOWN Drug Active Univers ALLERGIE Class ity of S [facility] Social History Social Habit Start Date Stop Date Quantity Comments Source [facility] Sm[facility] Status Start Date Stop Date Source Unknown if ever smoked [facility] Medications Ordered Filled Start Stop Current Ordering Indication Dosage Frequency Signature Comments Components Source Medication Medication Date Date Medication? Clinician (SIG) Name Name GlidevonteZIDE GlipiZIDE Yes Cornel 1 tablet Common 09-18 Chen [facility] 00:00: - [facility] 00 [facility] Procedures This patient has no known procedures. Encounters Start End Encounter Admission Attending Care Care Encounter Source Date/Time Date/Time Type Type Clinicians Facility Department ID 2019-10-24 2019-10-24 Laboratory Lab, Adc Fam Pob I [facility] 1.2. [id number] Univers 10:44:27 11:04:27 Only Narciso Hicks [id number] [facility] of [place] [id number] Enio as Professio [phone] Va dical nal [address] 2019-10-24 2019-10-24 Outpatient R KURT [facility] [id number] Univers 10:40:00 10:40:00 NARCISO jason [facility] 2019-10-24 2019-10-24 Letter Kurt [facility] [id number] Univers 00:00:00 00:00:00 (Out) Narciso Cosme [id number] it [facility] [place] [id number] Enio as Professio [phone] [facility] [address] 2017-10-02 2017-10-02 Out[facility] [id number] Common 11:39:00 11:39:[address] [facility] 2017-09-18 2017-09-18 Outpatient [facility] [id number] Common 09:39:00 09:39:[address] [facility] 2017-09-04 2017-09-04 Outpatient [facility] [id number] Common 15:29:00 15:29:[address] [facility] 2017-08-10 2017-08-10 Outpatient Edison Gaytan [id number] Common 09:45:00 09:45:00 t [facility] [facility] [employer] [facility] Results This patient has no known results.
[2023-02-11] MEDS ORDERED: NA CHLORIDE 0.9% 1,000 ML ONE (02:26)
[2023-02-11] MEDS ORDERED: ONDANSETRON 4 MG/2 ML VIAL ONE (02:26)
[2023-02-11] MEDS ORDERED: MORPHINE 4 MG/ML SYR ONE (02:26)
[2023-02-11] MEDS ORDERED: FAMOTIDINE 20 MG/2 ML VIAL IV ONE (02:26)
[2023-02-11 02:45] LABS: Absolute Lymphocytes (CBC) 1.6 K/uL (0.7-4.9); Hematocrit 42.7 % (36.0-45.0); Lymphocytes % 12.6 % (15.3-44.8); MCV 86.9 fL (80-100); MPV 9.1 fL (7.6-11.3); Platelets 242 thou/uL (152-406); RBC Red Blood Cell Count 4.91 M/uL (3.86-4.86)
[2023-02-11 02:53] LABS: SARS-CoV-2 Antigen Rapid Res Negative (Negative)
[2023-02-11 03:00] LABS: Albumin 3.7 g/dL (3.4-5.0); Bilirubin Total 1.8 mg/dL (0.2-1.0); Potassium 3.4 mEq/L (3.5-5.1); Troponin High Sensitivity 4.6 pg/mL (<58.9)
--- NOTE | 2023-02-11 04:42 | EDPHYS ---
Physician Documentation [facility] Name: Patti Friedman Age: 63 yrs Sex: Female : 1960 Arrival Date: 02/11/2023 Time: 01:57 Bed 14 Private MD: ED Physician Xiang Shore HPI: 02/11 02:09 This 63 yrs old Female presents to ER via EMS with complaints of rn Nausea/Vomiting. 02:09 The patient presents to the emergency department with nausea, vomiting, abdominal pain. rn Onset: The symptoms/episode began/occurred yesterday. Possible causes: unknown. The symptoms are aggravated by nothing. The symptoms are alleviated by nothing. Associated signs and symptoms: Pertinent positives: abdominal pain, nausea, vomiting, Pertinent negatives: GI bleeding. Severity of symptoms: At their worst the symptoms were moderate in the emergency department the symptoms are unchanged. The patient has not experienced similar symptoms in the past. Patient reports started yesterday with nausea/vomiting/mid abdominal pain. Glucose in the 300s per EMS. Patient noncompliant with diabetic medication. Reports subjective fever and chills as well as runny nose. No blood in stool.. Historical: - Allergies: 02:06 No Known Allergies; kd3 - PMHx: 02:06 diabetes mellitus; kd3 - Immunization history:: Adult Immunizations up to date. - Social history:: Smoking status: Patient denies any tobacco usage or history of. - Family history:: not pertinent. - Hospitalizations: : No recent hospitalization is reported. ROS: 02:09 Constitutional: Positive for fever ENT: Positive for nasal drainage Cardiovascular: rn Negative for chest pain, palpitations, and edema, Respiratory: Negative for shortness of breath, cough, wheezing, and pleuritic chest pain, Abdomen/GI: Positive for abdominal pain/nausea/vomiting Back: Negative for injury and pain, : Negative for injury, bleeding, discharge, and swelling, MS/Extremity: Negative for injury and deformity, Skin: Negative for injury, rash, and discoloration, Neuro: Positive for generalized weakness Exam: 02:11 Constitutional: This is a well developed, well nourished patient who is awake, alert, rn moaning and will not open her eyes to speak to me Head/Face: Normocephalic, atraumatic. ENT: Dry mucous membranes Cardiovascular: Regular rate and rhythm. No pulse deficits. Respiratory: No increased work of breathing, no retractions or nasal flaring. Abdomen/GI: Soft, tender in all quadrants, no peritoneal signs MS/ Extremity: Pulses equal, no cyanosis. Neurovascular intact. Full, normal range of motion. Equal circumference. Neuro: Awake and alert, GCS 15 06:02 ECG was reviewed by the Attending Physician. rn Vital Signs: 02:03 BP 131 / 71; Pulse 68; Resp 18; Temp 97.8(O); Pulse Ox 99% on R/A; Weight 99.79 kg; kd3 Height 5 ft. 4 in. ; 04:30 BP 134 / 66; Pulse 99; Resp 15 S; Pulse Ox 98% on R/A; lg3 06:31 BP 109 / 50; Pulse 88; Resp 16 S; Pulse Ox 97% on R/A; lg3 02:03 Body Mass Index 37.76 (99.79 kg, 162.56 cm) kd3 MDM: 02:01 Patient medically screened. rn 04:37 Differential diagnosis: Nonspecific abd pain, gastritis, cholecystitis, pancreatitis. rn Data reviewed: vital signs, nurses notes, lab test result(s), radiologic studies, CT scan, ultrasound, and as a result, I will admit patient. Consideration of Admission/Observation Patient was admitted/placed on observation. Escalation of care including admission/observation considered. Management of patient was discussed with the following: Engineering Design Supervisor: Consulted with Dr. Pichardo, states unable to do intraoperative cholangiogram, would prefer GI backup, no GI here so recommends transfer.. Counseling: I had a detailed discussion with the patient and/or guardian regarding the historical points, exam findings, and any diagnostic results supporting the discharge/admit diagnosis, lab results, radiology results, the need to transfer to another facility, for higher level of care, [facility] does not immediately have the required specialist. Response to treatment: the patient's symptoms have markedly improved after treatment, and as a result, I will admit patient. 02/11 02:07 Order name: CBC with Diff; Complete Time: 03:03 rn 02/11 02:07 Order name: CMP; Complete Time: 03:03 rn 02/11 02:07 Order name: Lipase; Complete Time: 03:03 rn 02/11 02:07 Order name: Urinalysis w/ reflexes; Complete Time: 06:03 rn 02/11 02:07 Order name: Flu; Complete Time: 03:03 rn 02/11 02:07 Order name: SARS RAPID; Complete Time: 03:03 rn 02/11 02:07 Order name: Troponin High Sensitivity; Complete Time: 03:03 rn 02/11 05:06 Order name: Urine Culture EDMS 02/11 02:07 Order name: CT Abd/Pelvis - IV Contrast Only rn 02/11 02:07 Order name: US Abdomen Limited rn 02/11 02:07 Order name: EKG; Complete Time: 02:08 rn 02/11 02:07 Order name: IV Saline Lock; Complete Time: 02: rn 02/11 02:07 Order name: Labs collected and sent; Complete Time: rn 02/11 02:07 Order name: EKG - Nurse/Tech; Complete Time: rn EC:02 Rate is 71 beats/min. Rhythm is regular. QRS [place] is Normal. DE interval is normal. QRS rn interval is normal. QT interval is normal. No Q waves. T waves are Normal. No ST changes noted. Clinical impression: NSR w/ Non-specific ST/T Changes. Interpreted by me. Reviewed by me. Administered Medications: 02:28 Drug: Famotidine IVP 20 mg IVP once; dilute with 10 mL 0.9% NaCl; give over 2 minutes lg3 Route: IVP; Site: left antecubital; 06:31 Follow up: Response: No adverse reaction lg3 02:28 Drug: Ondansetron IVP 4 mg IVP once; over 2 minutes Route: IVP; Site: left antecubital; lg3 06:31 Follow up: Response: No adverse reaction; Marked relief of symptoms lg3 02:28 Drug: morphine IVP or IV 4 mg IVP once over 4 mins Route: IVP; Infused Over: 4 mins; lg3 Site: left antecubital; 06:31 Follow up: Response: No adverse reaction; Marked relief of symptoms lg3 02:28 Drug: NS 0.9% IV 500 ml IV at bolus once Route: IV; Rate: bolus; Site: left antecubital;lg3 06:31 Follow up: IV Status: Completed infusion; IV Intake: 500ml lg3 04:45 Drug: Piperacillin-Tazobactam IVPB 3.375 grams IVPB once over 60 mins; (mix in NS 100 lg3 mL) Route: IVPB; Infused Over: 60 mins; Site: left antecubital; 06:31 Follow up: IV Status: Completed infusion; IV Intake: 100ml lg3 Disposition Summary: 02/11/23 04:42 Transfer Ordered Notes: Transfer Location: [facility] rn Reason: Higher level of care rn Condition: Stable rn Problem: new rn Symptoms: have improved rn Accepting Physician: (02/11/23 08:13) [email or web address] Diagnosis - Acute cholecystitis rn - Calculus of gallbladder and bile duct with acute cholecystitis with obstruction rn Forms: - Medication Reconciliation Form rn - SBAR form rn Signatures: Dispatcher [employer] EDMS Xiang Shore MD MD rn Botello, Elizabeth eb Gibson, Lacie, RN RN lg3 Jacinta Burnham, RN RN kd3 Ade Shankar, RN RN ko1 Corrections: (The following items were deleted from the chart) 02:12 02:09 Constitutional: Negative for fever, chills, and weight loss, rn rn 06:51 04:42 Dr. ozuna eb 08:13 06:51 eb ko1
--- NOTE | 2023-02-11 04:42 | ER ---
Nurse's Notes [facility] Name: Patti Friedman Age: 63 yrs Sex: Female : 1960 Arrival Date: 02/11/2023 Time: 01:57 Bed 14 Private MD: Diagnosis: Acute cholecystitis;Calculus of gallbladder and bile duct with acute cholecystitis with obstruction Presentation: 02/11 02:03 Chief complaint: EMS states: PT started having nausea and vomiting that started around kd3 10:30 PM. Pt is a known diabetic that controls her diabetes with diet alone and takes no meds. Pt is alert and oriented X 4. Pt finger stick in route was 368. 22 gauge in the left A/C and NS started. Coronavirus screen: Vaccine status: Patient reports being unvaccinated. Ebola Screen: No symptoms or risks identified at this time. Initial Sepsis Screen: Does the patient meet any 2 criteria? No. Patient's initial sepsis screen is negative. Does the patient have a suspected source of infection? No. Patient's initial sepsis screen is negative. Risk Assessment: Do you want to hurt yourself or someone else? Patient reports no desire to harm self or others. Onset of symptoms was February 11, 2023. 02:03 Method Of Arrival: EMS: [facility] kd3 02:03 Acuity: MIGUEL ANGEL 3 kd3 Triage Assessment: 02:06 General: Appears in no apparent distress. Behavior is calm, cooperative. Pain: kd3 Complains of pain in abdomen. GI: Reports nausea, vomiting. Historical: - Allergies: 02:06 No Known Allergies; kd3 - PMHx: 02:06 diabetes mellitus; kd3 - Immunization history:: Adult Immunizations up to date. - Social history:: Smoking status: Patient denies any tobacco usage or history of. - Family history:: not pertinent. - Hospitalizations: : No recent hospitalization is reported. Screenin:26 [facility] ED Fall Risk Assessment (Adult) History of falling in the last 3 months, lg3 including since admission No falls in past 3 months (0 pts). Abuse screen: Denies threats or abuse. Denies injuries from another. Nutritional screening: No deficits noted. Tuberculosis screening: No symptoms or risk factors identified. Assessment: 02:26 General: Appears in no apparent distress. uncomfortable, Behavior is calm, cooperative. lg3 Pain: Complains of pain in abdomen Pain radiates to back. Neuro: No deficits noted. Davis Agitation-Sedation Scale (RASS): 0 - Alert and Calm Level of Consciousness is awake, alert, obeys commands, Oriented to person, place, time, situation. Cardiovascular: No deficits noted. Denies chest pain, shortness of breath, Capillary refill < 3 seconds Clubbing of nail beds is absent JVD is absent Patient's skin is warm and dry. Respiratory: No deficits noted. Airway is patent Respiratory effort is even, unlabored, Respiratory pattern is regular, symmetrical. GI: Abdomen is round non-distended, obese, Pt is actively vomiting bile, clear fluid, Reports lower abdominal pain, upper abdominal pain, nausea, vomiting. : No deficits noted. No signs and/or symptoms were reported regarding the genitourinary system. EENT: No deficits noted. No signs and/or symptoms were reported regarding the EENT system. Derm: No deficits noted. No signs and/or symptoms reported regarding the dermatologic system. Skin is intact, is healthy with good turgor, Skin is dry, Skin is normal, Skin temperature is warm. Musculoskeletal: No deficits noted. Circulation, motion, and sensation intact. Range of motion: intact in all extremities. 04:30 Reassessment: Patient appears in no apparent distress at this time. No changes from lg3 previously documented assessment. Patient and/or family updated on plan of care and expected duration. Pain level reassessed. Patient is alert, oriented x 3, equal unlabored respirations, skin warm/dry/pink. Patient states symptoms have improved. Vital Signs: 02:03 BP 131 / 71; Pulse 68; Resp 18; Temp 97.8(O); Pulse Ox 99% on R/A; Weight 99.79 kg; kd3 Height 5 ft. 4 in. ; 04:30 BP 134 / 66; Pulse 99; Resp 15 S; Pulse Ox 98% on R/A; lg3 06:31 BP 109 / 50; Pulse 88; Resp 16 S; Pulse Ox 97% on R/A; lg3 02:03 Body Mass Index 37.76 (99.79 kg, 162.56 cm) kd3 ED Course: 02:01 Patient arrived in ED. rn 02:01 Xiang Shore MD is Attending Physician. rn 02:06 Triage completed. kd3 02:06 Arm band placed on left wrist. kd3 02:26 Josefina Coyne, RN is Primary Nurse. lg3 02:26 Patient has correct armband on for positive identification. Placed in gown. Bed in low lg3 position. Call light in reach. Side rails up X 1. Door closed. Noise minimized. Warm blanket given. Family accompanied patient. 02:26 Maintain EMS IV. Dressing intact. Good blood return noted. Site clean \T\ dry. Gauge \T\ lg 3 site: 22 LAC. Patient maintains SpO2 saturation greater than 95% on room air. 02:28 Troponin High Sensitivity Sent. lg3 02:28 SARS RAPID Sent. lg3 02:28 Flu Sent. lg3 02:28 CBC with Diff Sent. lg3 02:28 CMP Sent. lg3 02:28 Lipase Sent. lg3 03:20 US Abdomen Limited In Process Unspecified. EDMS 03:49 CT Abd/Pelvis - IV Contrast Only In Process Unspecified. EDMS 06:00 transfer initiated by Yu with Dorothy Samson from the [facility] [place]. eb 06:33 connected the hospitalist bone worker for [facility] with Dr. Shore for patient eb transfer consultation. 06:41 administrative approval given by Dorothy Mcnamara Rn/ patient has been accepted to [facility] 10 tower bed 1014/ Dr. Kerrie Marti has accepted the patient in transfer/ Dr. Ferris the general surgeon has accepted the patient in consultation without conference with Dr. Shore/ report to be called to [phone]. 06:47 [facility] called for transport ETA 45 min/ [facility] unavailable tp transport.eb 08:12 Provided Education on: transfer. ko1 08:12 No provider procedures requiring assistance completed. Patient transferred, IV remains ko1 in place. Administered Medications: 02:28 Drug: Famotidine IVP 20 mg IVP once; dilute with 10 mL 0.9% NaCl; give over 2 minutes lg3 Route: IVP; Site: left antecubital; 06:31 Follow up: Response: No adverse reaction lg3 02:28 Drug: Ondansetron IVP 4 mg IVP once; over 2 minutes Route: IVP; Site: left antecubital; lg3 06:31 Follow up: Response: No adverse reaction; Marked relief of symptoms lg3 02:28 Drug: morphine IVP or IV 4 mg IVP once over 4 mins Route: IVP; Infused Over: 4 mins; lg3 Site: left antecubital; 06:31 Follow up: Response: No adverse reaction; Marked relief of symptoms lg3 02:28 Drug: NS 0.9% IV 500 ml IV at bolus once Route: IV; Rate: bolus; Site: left antecubital;lg3 06:31 Follow up: IV Status: Completed infusion; IV Intake: 500ml lg3 04:45 Drug: Piperacillin-Tazobactam IVPB 3.375 grams IVPB once over 60 mins; (mix in NS 100 lg3 mL) Route: IVPB; Infused Over: 60 mins; Site: left antecubital; 06:31 Follow up: IV Status: Completed infusion; IV Intake: 100ml lg3 Medication: 08:12 VIS not applicable for this client. ko1 Intake: 06:31 IV: 100ml; Total: 100ml. lg3 06:31 IV: 500ml; Total: 600ml. lg3 Outcome: 04:42 ER care complete, transfer ordered by . rn 08:12 Transferred by private ambulance [place] to [facility], Transfer ko1 form completed. 08:12 Condition: stable 08:12 Instructed on the need for transfer, 08:13 Patient left the ED. ko1 Addendum: 02/13/2023 08:12 Addendum: Culture Results: Positive urine culture. faxed chart to [facility], 10 b [address] tower bed 1014. Signatures: Dispatcher [employer] EDMS Rosemary Stevenson Roman, MD MD rn Botello, Elizabeth eb Gibson, Lacie RN RN lg3 Jacinta Burnham RN RN kd3 Ade Shankar RN RN ko1
[2023-02-11] MEDS ORDERED: NA CHLORIDE 0.9% 100 ML ONE (04:46)
[2023-02-11] MEDS ORDERED: PIPERACIL/TAZO 3.375 GM VIAL IV ONE (04:46)
[2023-02-11 05:04] LABS: Specific Gravity > 1.030 (1.005-1.030); Urine Bacteria <20 /HPF (<20); Urine Bilirubin NEGATIVE (Negative); Urine Blood Negative (Negative); Urine Clarity Turbid (Clear); Urine Color Light-Yellow (Yellow); Urine Glucose 4+ (Over) (Negative); Urine Protein NEGATIVE (Negative); Urine RBC <5 /HPF (None Seen); Urine Urobilinogen Normal (Normal); Urine pH 6.5 (5.0-7.0)
[2023-02-11 08:18] VITALS: TEMP 97.8
[2023-02-11 08:22] VITALS: BP 109/50; O2SAT 97
--- NOTE | 2023-02-11 20:58 | RAD REPORT ---
EXAM DESCRIPTION: CT - Abdomen Pelvis W Contrast - 02/11/2023 6:47 am CLINICAL HISTORY: ABD PAIN COMPARISON: 06/20/2022 TECHNIQUE: CT of the abdomen and pelvis performed following IV administration of iodinated contras t. This exam was performed according to our departmental dose-optimization program, which includes au tomated exposure control, adjustment of the mA and/or kV according to patient size and/or use of iter ative reconstruction technique. FINDINGS: Lung Bases: The visualized lung bases are clear. Bones: Minimal endplate spondylosis. Abdomen: Liver: Hepatomegaly with diffusely decreased density. Small hepatic cyst. Gallbladder: Calcified gallstones with mild gallbladder wall thickening. Spleen, Pancreas, and Adrenal Glands: The spleen, pancreas, and adrenal glands are unremarkable. Kidneys: No hydronephrosis or obstructing calculus. Vasculature: Aortoiliac atherosclerosis. IVC is unremarkable. The portal vein is patent. The proxim al visceral and renal arteries are patent. Stomach: Small hiatal hernia. Duodenal diverticulum. Other: No free intraperitoneal air. No free fluid or lymphadenopathy. Pelvis: Bladder: Air in the urinary bladder may be related to recent catheterization. Bowel: No dilated loops of large or small bowel. Scattered diverticula of the colon. Appendix: Normal appendix. Pelvis: Uterus is not enlarged. IMPRESSION: 1. Cholelithiasis with mild gallbladder wall thickening. These findings could be seen with acute cholecystitis. 2. Hepatomegaly and hepatic steatosis. 3. Diverticulosis without evidence of acute diverticulitis. Electronically signed by: Juancarlos Rivera 02/11/2023 4:23 AM CDT Due to temporary technical issues with the PACS/Fluency reporting system, reports are being signed by the in house radiologists without review as a courtesy to insure prompt reporting. The interpreting radiologist is fully responsible for the content of the report
--- NOTE | 2023-02-11 21:00 | RAD REPORT ---
EXAM DESCRIPTION: US - Abdomen Exam Limited - 02/11/2023 3:18 am CLINICAL HISTORY: ABD PAIN COMPARISON: None. TECHNIQUE: Real-time sonographic images of the gallbladder were obtained using a curved multihertz t ransducer. FINDINGS: Liver: The visualized liver has increased echogenicity. Hepatopedal flow in the portal vei n. Findings confirmed with color and spectral Doppler imaging. The common bile duct measures 0.9 cm . Gallbladder: Shadowing echogenic structures in the gallbladder lumen. Gallbladder wall thickness of 0 .4 cm. Sonographic Elliott's sign not provided. IMPRESSION: 1. Cholelithiasis with gallbladder wall thickening. These findings could be seen with acute cholecystitis. 2. Mild dilation of the common bile duct. If there is concern for biliary obstruction MRCP would pr ovide additional characterization. Electronically signed by: Juancarlos Rivera 02/11/2023 4:20 AM CDT Due to temporary technical issues with the PACS/Fluency reporting system, reports are being signed by the in house radiologists without review as a courtesy to insure prompt reporting. The interpreting radiologist is fully responsible for the content of the report
--- NOTE | 2023-02-14 08:00 | EKG ---
Test Date: 2023-02-11 Test Time: 02:37:26 Principal Clerk: JANEY MEASUREMENT RESULTS: Intervals: Rate: 71 OH: 188 QRSD: 86 QT: 434 QTc: 471 Barto: P: 41 OH: 188 QRS: 32 T: 61 INTERPRETIVE STATEMENTS: Normal sinus rhythm Cannot rule out Anterior infarct, age undetermined Abnormal ECG Compared to ECG 02/02/2022 18:39:53 Sinus arrhythmia no longer present Myocardial infarct finding still present Electronically Signed On 02-14-23 07:53:39 CDT by Simon Stewart
== END 2023-02-11 08:13 | disposition short-term general hospital (02) ==
LOC: ER 01:57
DX: K80.63 Calculus of gallbladder and bile duct with acute cholecystitis with obstruction (principal); Z11.52 Encounter for screening for COVID-19
CPT/HCPCS: 96365; 96361; 93005; 87088; 85025; 81001; 87086; 36415; 87077; 87186; 84484; 83690; 80053; 87804 ×2; 74177; 76705; 96375; 99285; 96366; 87811; Q9967; J2543; J2405; J7030

== ENCOUNTER 2023-03-04 22:43 | Emergency (ER) | payer BC ==
--- OUTSIDE RECORDS SUMMARY | 2023-03-04 22:56 | XMS REPORT | Continuity of Care Document ---
:1960 Author Organization [facility] t Address [address] [place] [address] [place] [id number] Care Team Providers Name Role Phone DORY HU Attending Clinician Unavailable Brock Crews MD Attending Clinician [phone] Dory Hu MD Attending Clinician Octavio HOPKINS, Johan Parker Attending Clinician Tommie Solomon MD Attending Clinician TOMMIE SOLOMON Attending Clinician Unavailable Finn HOPKINS, Tiara Shrestha Attending Clinician [phone] Timo Montez MD Attending Clinician Gisele Kim CRNA Attending Clinician [phone] BERNA REYES Attending Clinician Unavailable Berna Reyes MD Attending Clinician Ed Grover MD Attending Clinician BROCK CREWS Attending Clinician Unavailable Lab, Adc Fam Pob I Attending Clinician Unavailable Narciso Burdick Attending Clinician NARCISO LOGAN Attending Clinician Unavailable DORY HU Admitting Clinician Unavailable Payers Payer Name Policy Type Policy Number Effective Date Expiration Date S ource 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 0-28 [facility] mellitus, mellitus, 00:00: [facility] without without 00 Center long-term long-term current current use of use of insulin insulin Obesity, Obesity, Disease Recurre 2022-[address] [facility] [address] Class III, Class III, nce 0-28 [facility] BMI BMI 00:00: Medical 40-49.9 40-49.9 00 Center (morbid (morbid obesity) obesity) Abdominal Abdominal Disease Active 2022-[address] [facility] [address] pain pain 0-28 [facility] 00:00: Medical 00 [place] Nausea Nausea Disease Active 2022-[address] 0-28 [facility] 00:00: Medical 00 [place] Cholecysti Cholecysti Disease Active 2022-[address] tis tis 0-28 [facility] 00:00: Medical 00 [place] Common Common Disease Active 2022-[address] [facility] [address] bile duct bile duct 0-28 [facility] s dilation dilation 00:00: Medica l 00 [place] Microalbum Microalbum Problem Active C ommon inuria inuria [facility] 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 - [facility] Hyperlipid Hyperlipid Problem Active C ommon emia, emia, Spirit unspecifie unspecifie - [facility] d d hyperlipid hyperlipid [facility] emia type emia type [facility] Adult BMI Adult BMI Problem Active Com mon 39.0-39.9 39.0-39.9 Spir it kg/sq m kg/sq [facility] Allergies, Adverse Reactions, Alerts Allergy Allergy Status Severity Reaction(s) Onset Inactive Treating Comm ents Source Name Type Date Date Clinician NO KNOWN Drug Active Univers ALLERGIE Class ity [facility] NO KNOWN Allergy Active [facility] Family History Family Member Diagnosis Comments Start Date Stop Date Source Natural father Arthritis [facility]fred[facility] Natural [facility] Social History Social Habit Start Date Stop Date Quantity Comments Source History of tobacco Passive smoker [facility]Med Medical [facility] Sexual orientation [facility] Alcohol intake 2023-02-15 2023-02-15 Ex-drinker [facility] St Wilfredo es 00:00:00 00:00:00 (finding) Medical Center History of Social 2023-02-15 2023-02-[address] [facility] function 00:00:00 00:00:00 Medical Center Exposure to 2023-02-01 2023-02-[address] [facility] SARS-CoV-2 (event) 00:00:00 16:24:00 Medica Center Tobacco use and 2023-02-11 2023-02-[address] [facility] exposure 00:00:00 00:00:00 non-user Medical Center History [facility] 2023-02-11 2023-02-[address] [facility] Transport Med 00:00:00 00:00:[address] History [facility] 2023-02-11 2023-02-[address] [facility] Housing Unable to 00:00:00 00:00:00 Medical Center Pay History [facility] 2023-02-11 2023-02-[address] [facility] Housing Places 00:00:00 00:00:00 Medical Ce nter Lived History [facility] 2023-02-11 2023-02-[address] [facility] Housing Homeless 00:00:00 00:00:00 Medical Center Last Year Alcohol Comment 2023-02-11 2023-02-11 drank wine 3x [facility] 00:00:00 00:00:00 this year Medical Center Sex Assigned At [address] [facility] 00:00:00 00:00:00 Medical Center Smoking Status Start Date Stop Date Source Unknown if ever smoked [facility] Never smoked tobacco [facility] Medications Ordered Filled Start Stop Current Ordering Indication Dosage Frequency Signature Comments Components Source Medication Medication Date Date Medication? Clinician (SIG) Name Name insulin 2022-04 Yes 10U QD Inject 10 [facility] glargine -03 Units [facility] (Lantus 00:00: subcutaneo Medi bel Solostar 00 usly Center U-100 nightly. Insulin) 100 unit/mL (3 mL) InPn alcohol 2022-04 Yes Use as [facility] swabs PadM 04-19 directed. Luke s 00:00: Medical 00 Center lancets 2022-04 Yes Use along [facility] gauge Misc 04-19 with [facility] 00:00: glucometer Medical 00 as Center directed TID prior to meals. fluticasone 2022-04- Yes 1{spray QD 1 spray by [facility] propionate 04-19 } Nasal [facility] (FLONASE) 00:00: 23:59 route Medica l 50 00 :00 daily. Center mcg/actuati on nasal spray blood-gluco 2022-04- Yes Use as [facility] se meter 04-19 instructed Luke s kit 00:00: 23:59 . Medical 00 :00 Center traMADoL 2022-04- No 100mg Take [address] [facility] [address] 100 mg Tab 04-18 11-12 mg by [facility]ukes 00:00: 23:59 mouth Medical 00 :00 every 6 Center (six) hours as needed for up to 10 days. Max Daily Amount: 400 mg GlipiZIDE GlipiZIDE 2017-0 Yes Cornel 1 tablet Common 09-18 Chen Spirit 00:00: - [address] Vital Signs Vital Name Observation Time Observation Value Comments Source WEIGHT 2023-02-17 05:04:00 94.847 kg WEIGHT 2023-02-16 05:00:00 95.709 kg WEIGHT 2023-02-15 05:00:00 95.528 kg WEIGHT 2023-02-13 19:31:00 95.346 kg WEIGHT 2023-02-13 05:00:00 96.163 kg WEIGHT 2023-02-12 05:18:00 95.618 kg HEIGHT 2023-02-11 12:21:00 140 cm WEIGHT 2023-02-11 12:21:00 95.981 kg WEIGHT 2023-02-17 05:04:00 94.847 kg WEIGHT 2023-02-16 05:00:00 95.709 kg WEIGHT 2023-02-15 05:00:00 95.528 kg WEIGHT 2023-02-13 19:31:00 95.346 kg WEIGHT 2023-02-13 05:00:00 96.163 kg WEIGHT 2023-02-12 05:18:00 95.618 kg HEIGHT 2023-02-11 12:21:00 140 cm WEIGHT 2023-02-11 12:21:00 95.981 kg WEIGHT 2023-02-17 05:04:00 94.847 kg WEIGHT 2023-02-16 05:00:00 95.709 kg WEIGHT 2023-02-15 05:00:00 95.528 kg WEIGHT 2023-02-13 19:31:00 95.346 kg WEIGHT 2023-02-13 05:00:00 96.163 kg WEIGHT 2023-02-12 05:18:00 95.618 kg HEIGHT 2023-02-11 12:21:00 140 cm WEIGHT 2023-02-11 12:21:00 95.981 kg Systolic blood 2023-02-17 09:00:00 118 mm[Hg] [facility] Diastolic blood 2023-02-17 09:00:00 71 mm[Hg] [facility] Heart rate 2023-02-17 09:00:00 76 /min [facility] Body temperature 2023-02-17 09:00:00 36.61 Echo [facility] Respiratory rate 2023-02-17 09:00:00 20 /min [facility] Oxygen saturation in 2023-02-17 09:00:00 96 /min [facility] Arterial blood by Medical Ce nter Pulse oximetry Body weight 2023-02-17 05:04:00 94.847 kg [facility] BMI 2023-02-17 05:04:00 48.39 kg/m2 [facility] Systolic blood 2023-02-15 05:00:00 127 mm[Hg] [facility] Diastolic blood 2023-02-15 05:00:00 82 mm[Hg] [facility] Respiratory rate 2023-02-15 05:00:00 18 /min [facility] Body weight 2023-02-15 05:00:00 95.528 kg [facility] BMI 2023-02-15 05:00:00 48.74 kg/m2 [facility] Oxygen saturation in 2023-02-15 05:00:00 98 /min [facility] Arterial blood by Medical Ce nter Pulse oximetry Heart rate 2023-02-14 23:00:00 61 /min [facility] Body temperature 2023-02-14 23:00:00 36.44 Echo [facility] Body height 2023-02-11 12:21:00 140 cm [facility] Procedures Procedure Date / Time Performing Clinician Source Performed POCT-GLUCOSE METER 2023-02-17 09:20:00 Neha [facility] CBC W/PLT COUNT & AUTO 2023-02-17 04:03:00 Valentino Demi [facility] CBC W/PLT COUNT & AUTO 2023-02-17 04:03:00 Valentino [facility] BASIC METABOLIC PANEL 2023-02-17 04:03:00 Valentino [facility] MAGNESIUM 2023-02-17 04:03:00 Valentino [facility] PHOSPHORUS 2023-02-17 04:03:00 Valentino [facility] HEPATIC FUNCTION PANEL 2023-02-17 04:03:00 Valentino Demi [facility] POCT-GLUCOSE METER 2023-02-16 21:46:00 Neha [facility] POCT-GLUCOSE METER 2023-02-16 16:07:00 Neha [facility] POCT-GLUCOSE METER 2023-02-16 11:44:00 Neha [facility] POCT-GLUCOSE METER 2023-02-16 07:40:00 [facility] CBC W/PLT COUNT & AUTO 2023-02-16 01:07:00 [facility] W[facility] & AUTO 2023-02-16 01:07:00 [facility] BASIC MET[facility]OLIC PANEL 2023-02-16 01:07:00 [facility] 2023-02-16 01:07:00 Valentino Demijason Garcia [facility] PHOSPHORUS 2023-02-16 01:07:00 Valentino Demi [facility] HEPATIC FUNCTION PANEL 2023-02-16 01:07:00 Valentino Demi [facility] POCT-GLUCOSE METER 2023-02-15 20:42:00 Neason [facility] POCT-GLUCOSE METER 2023-02-15 16:51:00 Neason, [facility] POCT-GLUCOSE METER 2023-02-15 12:29:00 Neason, [facility] POCT-GLUCOSE METER 2023-02-15 10:26:00 Neason, [facility] CHOLECYSTECTOMY, 2023-02-15 08:23:00 Toneva, [facility] CHOLECYSTECTOMY 2023-02-15 08:23:00 Toneva, [facility] CHOLECYSTECTOMY, 2023-02-15 08:16:00 Toneva, [facility] LAPAROSCOPIC [facility] CHOLECYSTECTOMY 2023-02-15 08:16:00 Toneva, [facility] CBC W/PLT COUNT & AUTO 2023-02-15 04:07:[address] [facility] BASIC METABOLIC PANEL 2023-02-15 04:07:[address] [facility] MAGNESIUM 2023-02-15 04:07:00 Shlomo Lopez [facility] PHOSPHORUS 2023-02-15 04:07:[address] [facility] HEPATIC FUNCTION PANEL 2023-02-15 04:07:00 Shlomo Lopez [facility] CBC W/PLT COUNT & AUTO 2023-02-15 04:07:00 John Shlomo [facility] POCT-GLUCOSE METER 2023-02-14 21:00:00 Tommie Sloomon [facility] POCT-GLUCOSE METER 2023-02-14 17:07:00 Johan Cunningham [facility] MISCELLANEOUS LAB ORDER 2023-02-14 13:50:00 Johan Cunningham [facility] POCT-GLUCOSE METER 2023-02-14 11:41:00 Johan Cunningham [facility] POCT-GLUCOSE METER 2023-02-14 09:06:00 Johan Cunningham [facility] REPORT OF PROCEDURE - 2023-02-14 08:53:27 Berna Reyes [facility] ENDOSCOPY [facility] [place] ERCP 2023-02-14 08:44:00 Berna Reyes [facility] ERCP, WITH SPHINCTEROTOMY 2023-02-14 08:18:00 Berna Reyes am [facility] PROCEDURE W/ C-ARM 2023-02-14 08:18:00 Berna Reyes [facility] ERCP, WITH BALLOON SWEEP 2023-02-14 08:18:00 Berna Reyes [facility] OF BILE DUCTS [facility] PROTHROMBIN TIME/INR 2023-02-14 05:00:00 Falguni Méndez [facility] CBC W/PLT COUNT & AUTO 2023-02-14 04:53:00 Lopez Shlomo [facility] BASIC METABOLIC PANEL 2023-02-14 04:53:[address] [facility] MAGNESIUM 2023-02-14 04:53:00 [facility] PHOSPHORUS 2023-02-14 04:53:00 [facility] HEPATIC FUNCTION PANEL 2023-02-14 04:53:[address] [facility] CBC W/PLT COUNT & AUTO 2023-02-14 04:53:00 Shlomo Lopez [facility] POCT-GLUCOSE METER 2023-02-13 21:05:00 Johan Cunningham [facility] POCT-GLUCOSE METER 2023-02-13 17:20:00 Johan Cunningham [facility] POCT-GLUCOSE METER 2023-02-13 12:23:00 Johan Cunningham [facility] ECG 12-LEAD 2023-02-13 09:00:27 EvelinAlex Brittany [facility] ECG 12-LEAD 2023-02-13 09:00:27 Unknown, Hl7 Doctor [facility] ECG 12-LEAD 2023-02-13 09:00:27 Unknown, Hl7 Doctor [facility] POCT-GLUCOSE METER 2023-02-13 07:19:00 Octavio Weisbrod [facility] CBC W/PLT COUNT & AUTO 2023-02-13 05:10:[address] [facility] BASIC METABOLIC PANEL 2023-02-13 05:10:00 [facility] MAGNESIUM 2023-02-13 05:10:00 [facility] PHOSPHORUS 2023-02-13 05:10:00 [facility] HEPATIC FUNCTION PANEL 2023-02-13 05:10:00 [facility] CBC W/PLT COUNT & AUTO 2023-02-13 05:10:00 [facility] ABORH, MANUAL 2023-02-12 20:33:00 Funmi Ramirez [facility] POCT-GLUCOSE METER 2023-02-12 20:20:00 Johan Cunningham [facility] TYPE AND SCREEN, AUTOMATED 2023-02-12 20:17:00 Shaggy [facility] POCT-GLUCOSE METER 2023-02-12 16:21:00 Johan Cunningham [facility] POCT-GLUCOSE METER 2023-02-12 12:43:00 Dory Hu [facility] CBC W/PLT COUNT & AUTO 2023-02-12 08:54:00 Sylvester Valentino [facility] COMPREHENSIVE METABOLIC 2023-02-12 08:54:00 Sylvester Valentino [facility] CBC W/PLT COUNT & AUTO 2023-02-12 08:54:00 Sylvester Valentino [facility] POCT-GLUCOSE METER 2023-02-12 08:33:00 Dory Hu [facility] POCT-GLUCOSE METER 2023-02-11 22:29:00 Dory Hu [facility] POCT-GLUCOSE METER 2023-02-11 16:55:00 Dory Hu [facility] POCT-GLUCOSE METER 2023-02-11 15:41:00 Dory Hu [facility] MR ABDOMEN WITHOUT IV 2023-02-11 14:46:[address] [facility] HEMOGLOBIN A1C 2023-02-11 13:38:00 Dory Hu [facility] POCT-GLUCOSE METER 2023-02-11 12:27:00 Dory Hu [facility] PROTHROMBIN TIME/INR 2023-02-11 11:00:00 Dory Hu [facility] MAGNESIUM 2023-02-11 11:00:00 Dory Hu [facility] PHOSPHORUS 2023-02-11 11:00:00 Dory Hu [facility] CBC (HEMOGRAM ONLY) 2023-02-11 11:00:00 Dory Hu [facility] LIPID PANEL 2023-02-11 11:00:00 Dory Hu [facility] HEPATIC FUNCTION PANEL 2023-02-11 11:00:00 Dory Hu [facility] BASIC METABOLIC PANEL 2023-02-11 11:00:[address] [facility] Plan of Care Planned Activity Planned Date Details Comments Source Future Scheduled 2026-02-11 Lipid panel (procedure) [facility] Test 00:00:00 [code = 22644282] Medical Ce nter Future Scheduled 2026-02-11 Lipid panel (procedure) [facility] Test 00:00:00 [code = 41903026] Medical Ce nter Future Scheduled 2024-02-[address] [facility] Test 00:00:00 Counseling and Screening Med ical Center (12+) [code = Tobacco Cessation Counseling and Screening (12+)] Future Scheduled 2024-02-[address] [facility] Test 00:00:00 Counseling and Screening Med ical Center (12+) [code = Tobacco Cessation Counseling and Screening (12+)] Future Scheduled 2023-02-[address] [facility] Test 00:00:00 measurement (procedure) Medi [facility] [code = 99580528] Future Scheduled 2023-02-[address] [facility] Test 00:00:00 measurement (procedure) [facility] [code = 93677948] Future Scheduled 2022-12-16 Influenza Vaccine (#1) [facility] 00:00:00 [code = Influenza Vaccine Me dical Center (#1)] Future Scheduled 2022-12-16 Influenza Vaccine (#1) [facility] 00:00:00 [code = Influenza Vaccine Me dical Center (#1)] Future Scheduled 2022-04-[address] [facility] Test 00:00:00 (12+) [code = DEPRESSION Med ical Center SCREENING (12+)] Future Scheduled 2022-04-[address] [facility] Test 00:00:00 (12+) [code = DEPRESSION Med ical Center SCREENING (12+)] Future Scheduled 2010-01-12 SHINGLES VACCINES ([address] [facility] Test 00:00:00 2) [code = SHINGLES Medical Center VACCINES (1 of 2)] Future Scheduled 2010-01-12 SHINGLES VACCINES ([address] [facility] Test 00:00:00 2) [code = SHINGLES Medical Center VACCINES (1 of 2)] Future Scheduled 1981-01-12 Screening for malignant [facility] Test 00:00:00 neoplasm of cervix Medical C enter (procedure) [code = 968988318] Future Scheduled 1981-01-12 Screening for malignant [facility] Test 00:00:00 neoplasm of cervix Medical C enter (procedure) [code = 402344913] Future Scheduled 1979-01-12 DTAP/TDAP/TD VACCINES ([address] [facility] Test 00:00:00 - Tdap) [code = Medical Cent er DTAP/TDAP/TD VACCINES (1 - Tdap)] Future Scheduled 1979-01-12 DTAP/TDAP/TD VACCINES ([address] [facility] Test 00:00:00 - Tdap) [code = Medical Cent er DTAP/TDAP/TD VACCINES (1 - Tdap)] Future Scheduled 1978-01-12 HEPATITIS C SCRE[facility]ING [facility] 00:00:00 [code = HEPATITIS C Medical Center SCREENING] Future Scheduled 1978-01-12 HEPATITIS C [facility]CRE[facility]ING [facility] 00:00:00 [code = HEPATITIS C Medical Center SCREENING] Future Scheduled 1975-01-[address] [facility] 00:00:00 virus screening Medical Cent er (procedure) [code = 174055506] Future Scheduled 1975-01-[address] [facility] 00:00:00 virus screening Medical Cent er (procedure) [code = 455266999] Future Scheduled 1970-01-12 DIABETIC EYE EXAM [code = [facility] 00:00:00 DIABETIC EYE EXAM] Medical C enter Future Scheduled 1970-01-12 Diabetic foot examination [facility] Test 00:00:00 (regime/therapy) [code = [facility] [id number]] Future Scheduled 1970-01-12 Urine screening for [facility] 00:00:00 protein (procedure) [code [facility] = 549134329] Future Scheduled 1970-01-12 DIABETIC EYE EXAM [code = [facility] 00:00:00 DIABETIC EYE EXAM] Medical C enter Future Scheduled 1970-01-12 Diabetic foot examination [facility] Test 00:00:00 (regime/therapy) [code = [facility] 838365550] Future Scheduled 1970-01-12 Urine screening for [facility] 00:00:00 protein (procedure) [facility] Future Scheduled 1966-01-12 Pneumococcal Vaccine: [facility] 00:00:00 0-64 Years (1 - PCV) Medical Center [code = Pneumococcal Vaccine: 0-64 Years (1 - PCV)] Future Scheduled 1966-01-12 Pneumococcal Vaccine: [facility] 00:00:00 0-64 Years (1 - PCV) Medical Center [code = Pneumococcal Vaccine: 0-64 Years (1 - PCV)] Future Scheduled 1960 COVID-19 VACCINE (#1) [facility] 00:00:00 [code = COVID-19 VACCINE Med ica Center (#1)] Future Scheduled 1960 COVID-19 VACCINE (#1) [facility] 00:00:00 [code = COVID-19 VACCINE Med ica Center (#1)] Future Scheduled 1960 Screening for malignant [facility] Test 00:00:00 neoplasm of breast Medical C enter (procedure) [code = 426161812] Future Scheduled 1960 CT Colonography (combo) [facility] 00:00:00 [code = CT Colonography [facility] (combo)] Future Scheduled 1960 Screening for malignant [facility] Test 00:00:00 neoplasm of colon Medical Ce nter (procedure) [code = 632754913] Future Scheduled 1960 Screening for malignant [facility] Test 00:00:00 neoplasm of colon Medical Ce nter (procedure) [code = 847219112] Future Scheduled 1960 Screening for malignant [facility] Test 00:00:00 neoplasm of colon Medical Ce nter (procedure) [code = 119522228] Future Scheduled 1960 Screening for malignant [facility] Test 00:00:00 neoplasm of colon Medical Ce nter (procedure) [code = 972298755] Future Scheduled 1960 Sigmoidoscopy [code = [facility] 00:00:00 Sigmoidoscopy] Medical Cente r Future Scheduled 1960 Screening for malignant [facility] Test 00:00:00 neoplasm of breast Medical C enter (procedure) [code = 556558567] Future Scheduled 1960 CT Colonography (combo) [facility] Test 00:00:00 [code = CT Colonography [facility] (combo)] Future Scheduled 1960 Screening for malignant [facility] Test 00:00:00 neoplasm of colon Medical Ce nter (procedure) [code = 351086274] Future Scheduled 1960 Screening for malignant [facility] Test 00:00:00 neoplasm of colon Medical Ce nter (procedure) [code = 330784540] Future Scheduled 1960 Screening for malignant [facility] Test 00:00:00 neoplasm of colon Medical Ce nter (procedure) [code = 776303854] Future Scheduled 1960 Screening for malignant [facility] Test 00:00:00 neoplasm of colon Medical Ce nter (procedure) [code = 889409036] Future Scheduled 1960 Sigmoidoscopy [code = [facility] 00:00:00 Sigmoidoscopy] Medical [facility] Encounters Start End Encounter Admission Attending Care Care Encounter Source Date/Time Date/Time Type Type Clinicians Facility Department ID 2023-02-11 [id number] 13:13:56 DORY 2023-02-11 2023-02-17 [facility] [id number] 09:16:00 11:47:00 Encounter Dory Hu Peter [facility] Tommie [place] 2023-02-11 2023-02-17 [facility] [id number] SLE 09:16:00 11:47:00 [facility] 2023-02-15 2023-02-15 Surgery Toneva, [facility] [id number] 08:23:00 10:58:00 [facility]ara [facility] 2023-02-15 2023-02-15 Surgery Toneva, [facility] [id number] 08:23:00 10:58:00 [facility]ara [facility] [place] 2023-02-15 2023-02-[address] [facility] [id number] 08:16:00 10:22:00 Event Udu, [facility] 2023-02-15 2023-02-15 Anesthesia Timo Montez [facility] [id number] 08:16:00 08:16:00 Event Julio [facility] 2023-02-14 2023-02-14 Outpatient EL SHANNON, [facility] [id number] [facility] 10:21:16 10:21:16 [facility] 2023-02-14 2023-02-14 [facility] [id number] 08:00:00 09:30:00 [facility] 2023-02-14 2023-02-14 Surgery Jawaid, [facility] [id number] 08:00:00 09:30:00 [facility] 2023-02-14 2023-02-14 Anesthesia Timo Montez [facility] [id number] [facility] 08:18[facility]00 09:06:00 Event Ed [facility] 2023-02-14 2023-02-14 Anesthesia Timo Montez [facility] [id number] [facility] 08:18[facility]00 09:06:00 Event Ed Grover [facility] 2023-02-13 2023-02-[address] [facility] [id number] 00:00:00 00:00:00 Only [facility] 2023-02-13 2023-02-[address] [facility] [id number] 00:00:00 00:00:00 [facility] 2023-02-11 2023-02-11 Travel [facility] [id number] [facility] 00:[facility]:00 [facility] 2023-02-11 2023-02-11 Travel [facility] [id number] [facility] 00:[facility]:00 [facility] 2019-10-24 2019-10-24 Laboratory Lab, Adc Fam Pob I [facility] [id number]. [id number] Univers 10:44:27 11:04:27 Only Narciso Logan [id number] [facility] [place] [id number] Enio as Professio [phone] [address] Office Building One 2019-10-24 2019-10-24 Outpatient R KURT [facility] [id number] Univers 10:40:00 10:40:00 NARCISO itjason [facility] 2019-10-24 2019-10-24 Octavio Logan [facility] [id number] Univers 00:00:00 00:00:00 (Out) Narciso Cosme 350.1.13.10 it [facility] [place] 4.2.7.2.686 Enio as Professio [phone] [address] Building One 2017-10-02 2017-10-02 Out[facility] [id number] Common 11:39:00 11:39:00 [address] [place] [address] [facility] 2017-09-18 2017-09-18 [facility] [id number] Common 09:39:00 09:39:00 t [place] [address] [facility] 2017-09-04 2017-09-04 [facility] [id number] Common 15:29:00 15:29:00 t [place] [address] [facility] 2017-08-10 2017-08-10 [facility] [id number] Common 09:45:00 09:45:00 t [place] [address] [facility] Results Test Description Test Time Test Comments Results Result [facility] e Comments Karie Auris 2023-02-21 [facility] 00:01:31 Yefjma1602/21/2023 Medical 12:01 AM [facility] NON-INTERFACED REFERENCE LABS POC-Glucose meter 2023-02-17 11:31:58 Test Item Value Reference Range Interpretation Comme nts POC-Glucose Meter (test code = 157 mg/dL 70-110 H : TESTED AT [facility] [address] [place] [address]) [place], 770 30: Tobacco Wrapping Machine Tender/Techni elyssa ID = [id number] for JOHANN TRAORE A Lab Interpretation (test code = Abnormal 02014-3) [facility] [id number] 11:31:58 Test Item Value Reference Range Interpretation Comments POC-GLUCOSE METER 157 mg/dL 70-110 H : TESTED A T [facility] 6720 (BEAKER) (test code = BERTNE R [facility], 1538) [address]: Tobacco Wrapping Machine Tender/Techni elyssa ID = [id number] for ARPAN CYR HEPATIC FUNCTION [id number] 04:59:06 Test Item Value Reference Range Interpretation Comments TOTAL PROTEIN (BEAKER) (test code = 6.4 gm/dL 6.0-8.3 770) ALBUMIN (BEAKER) (test code = 1145) 3.3 g/dL 3.5-5.0 L BILIRUBIN TOTAL (BEAKER) (test code 1.8 mg/dL 0.2-1.2 H = 377) BILIRUBIN DIRECT (BEAKER) (test 1.0 mg/dL 0.1-0.5 H code = 706) ALKALINE PHOSPHATASE (BEAKER) (test 344 U/L 40-150 H code = 346) AST (SGOT) (BEAKER) (test code = 41 U/L 5-34 H 353) ALT (SGPT) (BEAKER) (test code = 87 U/L 6-55 H 347) Tobacco Wrapping Machine Tender ID - ADMINBASIC METABOLIC [id number] 04:59:05 Test Item Value Reference Range Interpretation Comments SODIUM (BEAKER) 136 meq/L 136-145 (test code = 381) POTASSIUM 3.4 meq/L 3.5-5.1 L (BEAKER) (test code = 379) CHLORIDE (BEAKER) 102 meq/L 98-107 (test code = 382) CO2 (BEAKER) 24 meq/L 22-29 (test code = 355) BLOOD UREA 4 mg/dL 7-21 L NITROGEN (BEAKER) (test code = 354) CREATININE 0.55 mg/dL 0.57-1.25 L (BEAKER) (test code = 358) GLUCOSE RANDOM 151 mg/dL 70-105 H (BEAKER) (test code = 652) CALCIUM (BEAKER) 8.6 mg/dL 8.4-10.2 (test code = 697) EGFR (BEAKER) 103 Interpretatio n of eGFR (test code = mL/min/1.73 values Stage De scription 1092) sq m Result G1 Anita l or high >=90 G2 Mildly decreased 60-89 G3a Mildl y to moderately 45-5 9 G3b Moderately to s everely 30-44 G4 Severl y decreased 15-29 G5 Kidney failure <15Reported eGF R is based on the CKD-EPI 2020 equation that d oes not use a race coefficientEsti mated GFR is not as accur ate as Creatinine Sachi sean in predicting glom erular filtration rate . Estimated GFR is not appl icable for dialysis patien ts Tobacco Wrapping Machine Tender ID - [id number] 04:59:05 Test Item Value Reference Range Interpretation Comments MAGNESIUM (BEAKER) (test code = 1.7 mg/dL 1.6-2.6 627) Tobacco Wrapping Machine Tender ID - [id number] 04:59:05 Test Item Value Reference Range Interpretation Comments PHOSPHORUS (BEAKER) (test code = 2.8 mg/dL 2.3-4.7 604) Tobacco Wrapping Machine Tender ID - ADMINCBC W/PLT COUNT & AUTO [id number] 04:31:10 Test Item Value Reference Range Interpretation Comments WHITE BLOOD CELL COUNT (BEAKER) 6.1 K/ L 3.5-10.5 (test code = 775) RED BLOOD CELL COUNT (BEAKER) 4.32 M/ L 3.93-5.22 (test code = 761) HEMOGLOBIN (BEAKER) (test code = 13.0 GM/DL 11.2-15.7 410) HEMATOCRIT (BEAKER) (test code = 39.0 % 34.1-44.9 411) MEAN CORPUSCULAR VOLUME (BEAKER) 90 fL 79-95 (test code = 753) MEAN CORPUSCULAR HEMOGLOBIN 30.1 pg 25.6-32.2 (BEAKER) (test code = 751) MEAN CORPUSCULAR HEMOGLOBIN CONC 33.3 GM/DL 32.2-35.5 (BEAKER) (test code = 752) RED CELL DISTRIBUTION WIDTH 13.0 % 11.7-14.4 (BEAKER) (test code = 412) PLATELET COUNT (BEAKER) (test 264 K/CU MM 150-450 code = 756) MEAN PLATELET VOLUME (BEAKER) 9.9 fL 9.4-12.3 (test code = 754) NUCLEATED RED BLOOD CELLS 0 /100 WBC 0-0 (BEAKER) (test code = 413) NEUTROPHILS RELATIVE PERCENT 53 % (BEAKER) (test code = 429) LYMPHOCYTES RELATIVE PERCENT 32 % (BEAKER) (test code = 430) MONOCYTES RELATIVE PERCENT 8 % (BEAKER) (test code = 431) EOSINOPHILS RELATIVE PERCENT 4 % (BEAKER) (test code = 432) BASOPHILS RELATIVE PERCENT 1 % (BEAKER) (test code = 437) NEUTROPHILS ABSOLUTE COUNT 3.24 K/ L 1.56-6.13 (BEAKER) (test code = 670) LYMPHOCYTES ABSOLUTE COUNT 1.92 K/ L 1.18-3.74 (BEAKER) (test code = 414) MONOCYTES ABSOLUTE COUNT (BEAKER) 0.51 K/ L 0.24-0.36 H (test code = 415) EOSINOPHILS ABSOLUTE COUNT 0.21 K/ L 0.04-0.36 (BEAKER) (test code = 416) BASOPHILS ABSOLUTE COUNT (BEAKER) 0.04 K/ L 0.01-0.08 (test code = 417) IMMATURE GRANULOCYTES-RELATIVE 2.60 % 0.00-1.00 H PERCENT (BEAKER) (test code = 2801) POCT-GLUCOSE [id number] 21:57:20 Test Item Value Reference Range Interpretation Comments POC-GLUCOSE METER 211 mg/dL 70-110 H : TESTED A T [facility] 6720 (BEAKER) (test code = [facility], 153) [address]: Tobacco Wrapping Machine Tender/Techni elyssa ID = [id number] for Estephanie Oh POCT-GLUCOSE [id number] 16:19:17 Test Item Value Reference Range Interpretation Comments POC-GLUCOSE METER 183 mg/dL 70-110 H : TESTED A T [facility] 6720 (BEAKER) (test code = [facility], 153) 8[address]: Tobacco Wrapping Machine Tender/Techni elyssa ID = [id number] for Lisbeth Kemp POCT-GLUCOSE [id number] 11:55:49 Test Item Value Reference Range Interpretation Comments POC-GLUCOSE METER 197 mg/dL 70-110 H : TESTED A T [facility] 6720 (BEAKER) (test code = [facility] [place], 1538) [address]: Tobacco Wrapping Machine Tender/Techni elyssa ID = [id number] for Lisbeth Kemp POCT-GLUCOSE [id number] 07:52:03 Test Item Value Reference Range Interpretation Comments POC-GLUCOSE METER 158 mg/dL 70-110 H : TESTED A T [facility] 6720 (BEAKER) (test code = [facility] [place], 1538) [address]: Tobacco Wrapping Machine Tender/Techni elyssa ID = [id number] for Lisbeth Kemp [id number] 01:52:17 Test Item Value Reference Range Interpretation Comments PHOSPHORUS (BEAKER) (test code = 3.0 mg/dL 2.3-4.7 604) Tobacco Wrapping Machine Tender ID - ADMINHEPATIC FUNCTION [id number] 01:52:17 Test Item Value Reference Range Interpretation Comments TOTAL PROTEIN (BEAKER) (test code = 6.0 gm/dL 6.0-8.3 770) ALBUMIN (BEAKER) (test code = 1145) 3.2 g/dL 3.5-5.0 L BILIRUBIN TOTAL (BEAKER) (test code 2.1 mg/dL 0.2-1.2 H = 377) BILIRUBIN DIRECT (BEAKER) (test 1.4 mg/dL 0.1-0.5 H code = 706) ALKALINE PHOSPHATASE (BEAKER) (test 345 U/L 40-150 H code = 346) AST (SGOT) (BEAKER) (test code = 66 U/L 5-34 H 353) ALT (SGPT) (BEAKER) (test code = 116 U/L 6-55 H 347) Tobacco Wrapping Machine Tender ID - [id number] 01:52:16 Test Item Value Reference Range Interpretation Comments MAGNESIUM (BEAKER) (test code = 1.5 mg/dL 1.6-2.6 L 627) Tobacco Wrapping Machine Tender ID - ADMINBASIC METABOLIC [id number] 01:52:16 Test Item Value Reference Range Interpretation Comments SODIUM (BEAKER) 137 meq/L 136-145 (test code = 381) POTASSIUM 3.5 meq/L 3.5-5.1 (BEAKER) (test code = 379) CHLORIDE (BEAKER) 103 meq/L 98-107 (test code = 382) CO2 (BEAKER) 23 meq/L 22-29 (test code = 355) BLOOD UREA 4 mg/dL 7-21 L NITROGEN (BEAKER) (test code = 354) CREATININE 0.58 mg/dL 0.57-1.25 (BEAKER) (test code = 358) GLUCOSE RANDOM 143 mg/dL 70-105 H (BEAKER) (test code = 652) CALCIUM (BEAKER) 8.1 mg/dL 8.4-10.2 L (test code = 697) EGFR (BEAKER) 102 Interpretatio n of eGFR (test code = mL/min/1.73 values Stage De scription 1092) sq m Result G1 Anita l or high >=90 G2 Mildly decreased 60-89 G3a Mildl y to moderately 45-5 9 G3b Moderately to s everely 30-44 G4 Severl y decreased 15-29 G5 Kidney failure <15Reported eGF R is based on the CKD-EPI 2020 equation that d oes not use a race coefficientEsti mated GFR is not as accur ate as Creatinine Sachi sean in predicting glom erular filtration rate . Estimated GFR is not appl icable for dialysis patien ts Tobacco Wrapping Machine Tender ID - ADMINCBC W/PLT COUNT & AUTO [id number] 01:24:08 Test Item Value Reference Range Interpretation Comments WHITE BLOOD CELL COUNT (BEAKER) 6.7 K/ L 3.5-10.5 (test code = 775) RED BLOOD CELL COUNT (BEAKER) 4.51 M/ L 3.93-5.22 (test code = 761) HEMOGLOBIN (BEAKER) (test code = 12.9 GM/DL 11.2-15.7 410) HEMATOCRIT (BEAKER) (test code = 39.9 % 34.1-44.9 411) MEAN CORPUSCULAR VOLUME (BEAKER) 89 fL 79-95 (test code = 753) MEAN CORPUSCULAR HEMOGLOBIN 28.6 pg 25.6-32.2 (BEAKER) (test code = 751) MEAN CORPUSCULAR HEMOGLOBIN CONC 32.3 GM/DL 32.2-35.5 (BEAKER) (test code = 752) RED CELL DISTRIBUTION WIDTH 13.2 % 11.7-14.4 (BEAKER) (test code = 412) PLATELET COUNT (BEAKER) (test 249 K/CU MM 150-450 code = 756) MEAN PLATELET VOLUME (BEAKER) 10.0 fL 9.4-12.3 (test code = 754) NUCLEATED RED BLOOD CELLS 0 /100 WBC 0-0 (BEAKER) (test code = 413) NEUTROPHILS RELATIVE PERCENT 64 % (BEAKER) (test code = 429) LYMPHOCYTES RELATIVE PERCENT 24 % (BEAKER) (test code = 430) MONOCYTES RELATIVE PERCENT 8 % (BEAKER) (test code = 431) EOSINOPHILS RELATIVE PERCENT 2 % (BEAKER) (test code = 432) BASOPHILS RELATIVE PERCENT 0 % (BEAKER) (test code = 437) NEUTROPHILS ABSOLUTE COUNT 4.27 K/ L 1.56-6.13 (BEAKER) (test code = 670) LYMPHOCYTES ABSOLUTE COUNT 1.62 K/ L 1.18-3.74 (BEAKER) (test code = 414) MONOCYTES ABSOLUTE COUNT (BEAKER) 0.53 K/ L 0.24-0.36 H (test code = 415) EOSINOPHILS ABSOLUTE COUNT 0.14 K/ L 0.04-0.36 (BEAKER) (test code = 416) BASOPHILS ABSOLUTE COUNT (BEAKER) 0.03 K/ L 0.01-0.08 (test code = 417) IMMATURE GRANULOCYTES-RELATIVE 1.20 % 0.00-1.00 H PERCENT (BEAKER) (test code = 2801) POCT-GLUCOSE [id number] 22:03:06 Test Item Value Reference Range Interpretation Comments POC-GLUCOSE METER 149 mg/dL 70-110 H : TESTED A T [facility] 6720 (BEAKER) (test code = [facility], 153) [address]: Tobacco Wrapping Machine Tender/Techni elyssa ID = [id number] for Estephanie Oh POCT-GLUCOSE [id number] 17:03:02 Test Item Value Reference Range Interpretation Comments POC-GLUCOSE METER 136 mg/dL 70-110 H : TESTED A T [facility] 6720 (BEAKER) (test code = [facility], 153) [address]307: Tobacco Wrapping Machine Tender/Techni elyssa ID = [id number] for Lisbeth Kemp POCT-GLUCOSE [id number] 12:40:34 Test Item Value Reference Range Interpretation Comments POC-GLUCOSE METER 201 mg/dL 70-110 H : TESTED A T [facility] 6720 (BEAKER) (test code = [facility] [place], 1538) [address]: Tobacco Wrapping Machine Tender/Techni elyssa ID = [id number] for Lisbeth Kemp POCT-GLUCOSE [id number] 10:37:55 Test Item Value Reference Range Interpretation Comments POC-GLUCOSE METER 220 mg/dL 70-110 H : TESTED A T [facility] 6720 (BEAKER) (test code = [facility] [place], 1538) 15[address]: Tobacco Wrapping Machine Tender/Techni elyssa ID = [id number] for SELINA NEIL BASIC METABOLIC [id number] 04:51:26 Test Item Value Reference Range Interpretation Comments SODIUM (BEAKER) 137 meq/L 136-145 (test code = 381) POTASSIUM 3.1 meq/L 3.5-5.1 L (BEAKER) (test code = 379) CHLORIDE (BEAKER) 103 meq/L 98-107 (test code = 382) CO2 (BEAKER) 23 meq/L 22-29 (test code = 355) BLOOD UREA 6 mg/dL 7-21 L NITROGEN (BEAKER) (test code = 354) CREATININE 0.59 mg/dL 0.57-1.25 (BEAKER) (test code = 358) GLUCOSE RANDOM 169 mg/dL 70-105 H (BEAKER) (test code = 652) CALCIUM (BEAKER) 8.4 mg/dL 8.4-10.2 (test code = 697) EGFR (BEAKER) 101 Interpretatio n of eGFR (test code = mL/min/1.73 values Stage D escription 1092) sq m Result G1 Anita l or high >=90 G2 Mildly decreased 60-89 G3a Mildl y to moderately 45-5 9 G3b Moderately to s everely 30-44 G4 Severl y decreased 15-29 G5 Kidney failure <15Reported eGF R is based on the CKD-EPI 2021 equation that d oes not use a race coefficientEsti mated GFR is not as accur ate as Creatinine Sachi sean in predicting glom erular filtration rate . Estimated GFR is not appl icable for dialysis patien ts Tobacco Wrapping Machine Tender ID - ADMINSpecimen slightly ictericHEPATIC FUNCTION [id number] 04:51:26 Test Item Value Reference Range Interpretation Comments TOTAL PROTEIN (BEAKER) (test code = 6.0 gm/dL 6.0-8.3 770) ALBUMIN (BEAKER) (test code = 1145) 3.2 g/dL 3.5-5.0 L BILIRUBIN TOTAL (BEAKER) (test code 2.7 mg/dL 0.2-1.2 H = 377) BILIRUBIN DIRECT (BEAKER) (test 1.7 mg/dL 0.1-0.5 H code = 706) ALKALINE PHOSPHATASE (BEAKER) (test 341 U/L 40-150 H code = 346) AST (SGOT) (BEAKER) (test code = 52 U/L 5-34 H 353) ALT (SGPT) (BEAKER) (test code = 125 U/L 6-55 H 347) Tobacco Wrapping Machine Tender ID - ADMINSpecimen slightly [id number] 04:51:25 Test Item Value Reference Range Interpretation Comments MAGNESIUM (BEAKER) (test code = 1.7 mg/dL 1.6-2.6 627) Tobacco Wrapping Machine Tender ID - [id number] 04:51:25 Test Item Value Reference Range Interpretation Comments PHOSPHORUS (BEAKER) (test code = 2.9 mg/dL 2.3-4.7 604) Tobacco Wrapping Machine Tender ID - ADMINCBC W/PLT COUNT & AUTO [id number] 04:30:16 Test Item Value Reference Range Interpretation Comments WHITE BLOOD CELL COUNT (BEAKER) 4.7 K/ L 3.5-10.5 (test code = 775) RED BLOOD CELL COUNT (BEAKER) 4.67 M/ L 3.93-5.22 (test code = 761) HEMOGLOBIN (BEAKER) (test code = 13.5 GM/DL 11.2-15.7 410) HEMATOCRIT (BEAKER) (test code = 40.2 % 34.1-44.9 411) MEAN CORPUSCULAR VOLUME (BEAKER) 86 fL 79-95 (test code = 753) MEAN CORPUSCULAR HEMOGLOBIN 28.9 pg 25.6-32.2 (BEAKER) (test code = 751) MEAN CORPUSCULAR HEMOGLOBIN CONC 33.6 GM/DL 32.2-35.5 (BEAKER) (test code = 752) RED CELL DISTRIBUTION WIDTH 12.9 % 11.7-14.4 (BEAKER) (test code = 412) PLATELET COUNT (BEAKER) (test 220 K/CU MM 150-450 code = 756) MEAN PLATELET VOLUME (BEAKER) 10.2 fL 9.4-12.3 (test code = 754) NUCLEATED RED BLOOD CELLS 0 /100 WBC 0-0 (BEAKER) (test code = 413) NEUTROPHILS RELATIVE PERCENT 51 % (BEAKER) (test code = 429) LYMPHOCYTES RELATIVE PERCENT 30 % (BEAKER) (test code = 430) MONOCYTES RELATIVE PERCENT 11 % (BEAKER) (test code = 431) EOSINOPHILS RELATIVE PERCENT 6 % (BEAKER) (test code = 432) BASOPHILS RELATIVE PERCENT 1 % (BEAKER) (test code = 437) NEUTROPHILS ABSOLUTE COUNT 2.40 K/ L 1.56-6.13 (BEAKER) (test code = 670) LYMPHOCYTES ABSOLUTE COUNT 1.40 K/ L 1.18-3.74 (BEAKER) (test code = 414) MONOCYTES ABSOLUTE COUNT (BEAKER) 0.53 K/ L 0.24-0.36 H (test code = 415) EOSINOPHILS ABSOLUTE COUNT 0.26 K/ L 0.04-0.36 (BEAKER) (test code = 416) BASOPHILS ABSOLUTE COUNT (BEAKER) 0.05 K/ L 0.01-0.08 (test code = 417) IMMATURE GRANULOCYTES-RELATIVE 1.10 % 0.00-1.00 H PERCENT (BEAKER) (test code = 2801) POC-Glucose [id number] 21:12:11 Test Item Value Reference Range Interpretation Comments POC-Glucose Meter (test 216 mg/dL 70-110 H : TE STED AT [facility] code = 1538) 6720 [facility], 770 30: Tobacco Wrapping Machine Tender/Techni elyssa ID = [id number] for IRIS GONZALES Lab Interpretation (test Abnormal code = 91105-9) [facility] [id number] 21:12:11 Test Item Value Reference Range Interpretation Comments POC-GLUCOSE METER 216 mg/dL 70-110 H : TESTED A T [facility] 6720 (BEAKER) (test code = [facility], 1538) [address]: Tobacco Wrapping Machine Tender/Techni elyssa ID = [id number] for IRIS MOSES POCT-GLUCOSE [id number] 17:27:05 Test Item Value Reference Range Interpretation Comments POC-GLUCOSE METER 280 mg/dL 70-110 H : TESTED A T [facility] 6720 (BEAKER) (test code = [facility], 1538) 26646: Tobacco Wrapping Machine Tender/Techni elyssa ID = [id number] for ARPAN CYR POCT-GLUCOSE [id number] 11:54:24 Test Item Value Reference Range Interpretation Comments POC-GLUCOSE METER 217 mg/dL 70-110 H : TESTED A T [facility] 6720 (BEAKER) (test code = [facility], 1538) [address]: Tobacco Wrapping Machine Tender/Techni elyssa ID = [id number] for NW ARPAN GAMINO [place] [id number] 10:22:53 [facility] : 1960 Sex: FThis is a non- reportable study with no Radiologist dictation. Please refer to your PACS to review images, or Doc Flowsheets for documentation on studies without images. POCT-GLUCOSE [id number] 09:18:38 Test Item Value Reference Range Interpretation Comments POC-GLUCOSE METER 192 mg/dL 70-110 H : TESTED A T [facility] 6720 (BEAKER) (test code = [facility], 1538) 26106: Tobacco Wrapping Machine Tender/Techni elyssa ID = [id number] for Wi llrosa Eugenia BASIC METABOLIC [id number] 05:58:05 Test Item Value Reference Range Interpretation Comments SODIUM (BEAKER) 138 meq/L 136-145 (test code = 381) POTASSIUM 3.3 meq/L 3.5-5.1 L (BEAKER) (test code = 379) CHLORIDE (BEAKER) 102 meq/L 98-107 (test code = 382) CO2 (BEAKER) 24 meq/L 22-29 (test code = 355) BLOOD UREA 5 mg/dL 7-21 L NITROGEN (BEAKER) (test code = 354) CREATININE 0.64 mg/dL 0.57-1.25 (BEAKER) (test code = 358) GLUCOSE RANDOM 164 mg/dL 70-105 H (BEAKER) (test code = 652) CALCIUM (BEAKER) 8.5 mg/dL 8.4-10.2 (test code = 697) EGFR (BEAKER) 99 Interpretatio n of eGFR (test code = mL/min/1.73 values Stage De scription 1092) sq m Result G1 Anita l or high >=90 G2 Mildly decreased 60-89 G3a Mildl y to moderately 45-5 9 G3b Moderately to s everely 30-44 G4 Severl y decreased 15-29 G5 Kidney failure <15Reported eGF R is based on the CKD-EPI 2020 equation that d oes not use a race coefficientEsti mated GFR is not as accur ate as Creatinine Sachi sean in predicting glom erular filtration rate . Estimated GFR is not appl icable for dialysis patien ts Tobacco Wrapping Machine Tender ID - adminSpecimen slightly ictericHEPATIC FUNCTION [id number] 05:58:05 Test Item Value Reference Range Interpretation Comments TOTAL PROTEIN (BEAKER) (test code = 6.1 gm/dL 6.0-8.3 770) ALBUMIN (BEAKER) (test code = 1145) 3.2 g/dL 3.5-5.0 L BILIRUBIN TOTAL (BEAKER) (test code 3.3 mg/dL 0.2-1.2 H = 377) BILIRUBIN DIRECT (BEAKER) (test 2.2 mg/dL 0.1-0.5 H code = 706) ALKALINE PHOSPHATASE (BEAKER) (test 298 U/L 40-150 H code = 346) AST (SGOT) (BEAKER) (test code = 60 U/L 5-34 H 353) ALT (SGPT) (BEAKER) (test code = 166 U/L 6-55 H 347) Tobacco Wrapping Machine Tender ID - adminSpecimen slightly [id number] 05:58:04 Test Item Value Reference Range Interpretation Comments MAGNESIUM (BEAKER) (test code = 1.8 mg/dL 1.6-2.6 627) Tobacco Wrapping Machine Tender ID - [id number] 05:58:04 Test Item Value Reference Range Interpretation Comments PHOSPHORUS (BEAKER) (test code = 3.1 mg/dL 2.3-4.7 604) Tobacco Wrapping Machine Tender ID - adminPROTHROMBIN TIME/[id number] 05:45:13 Test Item Value Reference Range Interpretation Comments PROTIME (BEAKER) (test code = 13.7 seconds 11.9-14.2 759) INR (BEAKER) (test code = 370) 1.04 <=5.90 RECOMMENDED COUMADIN/WARFARIN INR THERAPY RANGESSTANDARD DOSE: 2.0 - 3.0 Includes: PROPHYLAXIS for venous thrombosis, systemic embolization; TREATMENT for venous thrombosis and/or pulmonary embolus.HIGH RISK: Target INR is 2.5-3.5 for patients with mechanical heart valves.CBC W/PLT COUNT & AUTO [id number] 05:34:30 Test Item Value Reference Range Interpretation Comments WHITE BLOOD CELL COUNT (BEAKER) 4.4 K/ L 3.5-10.5 (test code = 775) RED BLOOD CELL COUNT (BEAKER) 4.72 M/ L 3.93-5.22 (test code = 761) HEMOGLOBIN (BEAKER) (test code = 13.7 GM/DL 11.2-15.7 410) HEMATOCRIT (BEAKER) (test code = 41.7 % 34.1-44.9 411) MEAN CORPUSCULAR VOLUME (BEAKER) 88 fL 79-95 (test code = 753) MEAN CORPUSCULAR HEMOGLOBIN 29.0 pg 25.6-32.2 (BEAKER) (test code = 751) MEAN CORPUSCULAR HEMOGLOBIN CONC 32.9 GM/DL 32.2-35.5 (BEAKER) (test code = 752) RED CELL DISTRIBUTION WIDTH 12.8 % 11.7-14.4 (BEAKER) (test code = 412) PLATELET COUNT (BEAKER) (test 223 K/CU MM 150-450 code = 756) MEAN PLATELET VOLUME (BEAKER) 10.9 fL 9.4-12.3 (test code = 754) NUCLEATED RED BLOOD CELLS 0 /100 WBC 0-0 (BEAKER) (test code = 413) NEUTROPHILS RELATIVE PERCENT 62 % (BEAKER) (test code = 429) LYMPHOCYTES RELATIVE PERCENT 22 % (BEAKER) (test code = 430) MONOCYTES RELATIVE PERCENT 9 % (BEAKER) (test code = 431) EOSINOPHILS RELATIVE PERCENT 5 % (BEAKER) (test code = 432) BASOPHILS RELATIVE PERCENT 1 % (BEAKER) (test code = 437) NEUTROPHILS ABSOLUTE COUNT 2.72 K/ L 1.56-6.13 (BEAKER) (test code = 670) LYMPHOCYTES ABSOLUTE COUNT 0.94 K/ L 1.18-3.74 L (BEAKER) (test code = 414) MONOCYTES ABSOLUTE COUNT (BEAKER) 0.41 K/ L 0.24-0.36 H (test code = 415) EOSINOPHILS ABSOLUTE COUNT 0.22 K/ L 0.04-0.36 (BEAKER) (test code = 416) BASOPHILS ABSOLUTE COUNT (BEAKER) 0.03 K/ L 0.01-0.08 (test code = 417) IMMATURE GRANULOCYTES-RELATIVE 0.90 % 0.00-1.00 PERCENT (BEAKER) (test code = 2801) POCT-GLUCOSE [id number] 21:16:28 Test Item Value Reference Range Interpretation Comments POC-GLUCOSE METER 260 mg/dL 70-110 H : TESTED A T [facility] 6720 (BEAKER) (test code = [facility], 153) [id number]: Tobacco Wrapping Machine Tender/Techni elyssa ID = [id number] for Es joliea, Estephanie POCT-GLUCOSE [id number] 17:34:48 Test Item Value Reference Range Interpretation Comments POC-GLUCOSE METER 139 mg/dL 70-110 H : TESTED A T [facility] 6720 (BEAKER) (test code = [facility], 1538) [id number]: Tobacco Wrapping Machine Tender/Techni elyssa ID = [id number] for NW AJIAKU, ARPAN POCT-GLUCOSE [id number] 12:43:12 Test Item Value Reference Range Interpretation Comments POC-GLUCOSE METER 159 mg/dL 70-110 H : TESTED A T [facility] 6720 (BEAKER) (test code = [facility], 153) [id number]: Tobacco Wrapping Machine Tender/Techni elyssa ID = [id number] for NW AJIAKU, ARPAN POCT-GLUCOSE [id number] 07:40:40 Test Item Value Reference Range Interpretation Comments POC-GLUCOSE METER 227 mg/dL 70-110 H : TESTED A T [facility] 6720 (BEAKER) (test code = [facility] [place], 1538) [id number]: Tobacco Wrapping Machine Tender/Techni elyssa ID = [id number] for ARPAN CYR [employer]IC MET[employer] [id number] 06:22:49 Test Item Value Reference Range Interpretation Comments SODIUM (BEAKER) 137 meq/L 136-145 (test code = 381) POTASSIUM 3.8 meq/L 3.5-5.1 (BEAKER) (test code = 379) CHLORIDE (BEAKER) 103 meq/L 98-107 (test code = 382) CO2 (BEAKER) 24 meq/L 22-29 (test code = 355) BLOOD UREA 6 mg/dL 7-21 L NITROGEN (BEAKER) (test code = 354) CREATININE 0.63 mg/dL 0.57-1.25 (BEAKER) (test code = 358) GLUCOSE RANDOM 235 mg/dL 70-105 H (BEAKER) (test code = 652) CALCIUM (BEAKER) 8.7 mg/dL 8.4-10.2 (test code = 697) EGFR (BEAKER) 100 Interpretatio n of eGFR (test code = mL/min/1.73 values Stage De scription 1092) sq m Result G1 Anita l or high >=90 G2 Mildly decreased 60-89 G3a Mildl y to moderately 45-5 9 G3b Moderately to s everely 30-44 G4 Severl y decreased 15-29 G5 Kidney failure <15Reported eGF R is based on the CKD-EPI 1 equation that d oes not use a race coefficientEsti mated GFR is not as accur ate as Creatinine Sachi estrada in predicting glom erular filtration rate . Estimated GFR is not appl icable for dialysis patien ts Tobacco Wrapping Machine Tender ID - NTPSpecimen moderately ictericHEPATIC FUNCTION [id number] 06:22:49 Test Item Value Reference Range Interpretation Comments TOTAL PROTEIN (BEAKER) (test code = 6.2 gm/dL 6.0-8.3 770) ALBUMIN (BEAKER) (test code = 1145) 3.4 g/dL 3.5-5.0 L BILIRUBIN TOTAL (BEAKER) (test code 5.6 mg/dL 0.2-1.2 H = 377) BILIRUBIN DIRECT (BEAKER) (test 4.1 mg/dL 0.1-0.5 H code = 706) ALKALINE PHOSPHATASE (BEAKER) (test 230 U/L 40-150 H code = 346) AST (SGOT) (BEAKER) (test code = 97 U/L 5-34 H 353) ALT (SGPT) (BEAKER) (test code = 236 U/L 6-55 H 347) Tobacco Wrapping Machine Tender ID - NTPSpecimen moderately [id number] 06:22:48 Test Item Value Reference Range Interpretation Comments MAGNESIUM (BEAKER) (test code = 1.8 mg/dL 1.6-2.6 627) Tobacco Wrapping Machine Tender ID - [id number] 06:22:48 Test Item Value Reference Range Interpretation Comments PHOSPHORUS (BEAKER) (test code = 2.2 mg/dL 2.3-4.7 L 604) Tobacco Wrapping Machine Tender ID - NTPCBC W/PLT COUNT & AUTO [id number] 05:33:17 Test Item Value Reference Range Interpretation Comments WHITE BLOOD CELL COUNT (BEAKER) 5.4 K/ L 3.5-10.5 (test code = 775) RED BLOOD CELL COUNT (BEAKER) 4.84 M/ L 3.93-5.22 (test code = 761) HEMOGLOBIN (BEAKER) (test code = 14.1 GM/DL 11.2-15.7 410) HEMATOCRIT (BEAKER) (test code = 42.0 % 34.1-44.9 411) MEAN CORPUSCULAR VOLUME (BEAKER) 87 fL 79-95 (test code = 753) MEAN CORPUSCULAR HEMOGLOBIN 29.1 pg 25.6-32.2 (BEAKER) (test code = 751) MEAN CORPUSCULAR HEMOGLOBIN CONC 33.6 GM/DL 32.2-35.5 (BEAKER) (test code = 752) RED CELL DISTRIBUTION WIDTH 12.8 % 11.7-14.4 (BEAKER) (test code = 412) PLATELET COUNT (BEAKER) (test 191 K/CU MM 150-450 code = 756) MEAN PLATELET VOLUME (BEAKER) 10.6 fL 9.4-12.3 (test code = 754) NUCLEATED RED BLOOD CELLS 0 /100 WBC 0-0 (BEAKER) (test code = 413) NEUTROPHILS RELATIVE PERCENT 78 % (BEAKER) (test code = 429) LYMPHOCYTES RELATIVE PERCENT 10 % (BEAKER) (test code = 430) MONOCYTES RELATIVE PERCENT 8 % (BEAKER) (test code = 431) EOSINOPHILS RELATIVE PERCENT 3 % (BEAKER) (test code = 432) BASOPHILS RELATIVE PERCENT 0 % (BEAKER) (test code = 437) NEUTROPHILS ABSOLUTE COUNT 4.24 K/ L 1.56-6.13 (BEAKER) (test code = 670) LYMPHOCYTES ABSOLUTE COUNT 0.53 K/ L 1.18-3.74 L (BEAKER) (test code = 414) MONOCYTES ABSOLUTE COUNT (BEAKER) 0.44 K/ L 0.24-0.36 H (test code = 415) EOSINOPHILS ABSOLUTE COUNT 0.17 K/ L 0.04-0.36 (BEAKER) (test code = 416) BASOPHILS ABSOLUTE COUNT (BEAKER) 0.02 K/ L 0.01-0.08 (test code = 417) IMMATURE GRANULOCYTES-RELATIVE 0.60 % 0.00-1.00 PERCENT (BEAKER) (test code = 2801) POCT-GLUCOSE [id number] 20:32:08 Test Item Value Reference Range Interpretation Comments POC-GLUCOSE METER 300 mg/dL 70-110 H : TESTED A T [facility] 6720 (BEAKER) (test code = [facility], [facility]) [id number]: Tobacco Wrapping Machine Tender/Techni elyssa ID = [id number] for IRIS MOSES POCT-GLUCOSE [id number] 16:32:07 Test Item Value Reference Range Interpretation Comments POC-GLUCOSE METER 240 mg/dL 70-110 H : TESTED A T [facility] 6720 (BEAKER) (test code = [facility], 1538) [address]: Tobacco Wrapping Machine Tender/Techni elyssa ID = [id number] for Pa stratoy, Lisbeth POCT-GLUCOSE [id number] 12:55:24 Test Item Value Reference Range Interpretation Comments POC-GLUCOSE METER 229 mg/dL 70-110 H : TESTED A T [facility] 6720 (BEAKER) (test code = [facility], 1538) [address]: Tobacco Wrapping Machine Tender/Techni elyssa ID = [id number] for Pa stran, Lisbeth HEMOGLOBIN [id number] 11:06:41 Test Item Value Reference Range Interpretation Comments HEMOGLOBIN A1C 13.4 % See_Comment H [Automated m essage] ELECTROPHORESIS (BEAKER) The system which (test code = 3811) generated this result transmitted ref erence range: <=5.6%. The reference range was not used to int erpret this result as normal/abnormal . "The A1c is measured using a NGSP-certified method. HbA1c value equal to or greater than 6.5% as thediagnosis cutoff for diabetes. An HbA1c value of 5.7- 6.4% indicates increased risk for diabetes (prediabetes)."Tobacco Wrapping Machine Tender ID - ADM COMPREHENSIVE METABOLIC [id number] 09:49:03 Test Item Value Reference Range Interpretation Comments TOTAL PROTEIN 6.5 gm/dL 6.0-8.3 (BEAKER) (test code = 770) ALBUMIN (BEAKER) 3.6 g/dL 3.5-5.0 (test code = 1145) ALKALINE 211 U/L 40-150 H PHOSPHATASE (BEAKER) (test code = 346) BILIRUBIN TOTAL 5.9 mg/dL 0.2-1.2 H (BEAKER) (test code = 377) SODIUM (BEAKER) 136 meq/L 136-145 (test code = 381) POTASSIUM (BEAKER) 3.8 meq/L 3.5-5.1 (test code = 379) CHLORIDE (BEAKER) 100 meq/L 98-107 (test code = 382) CO2 (BEAKER) (test 27 meq/L 22-29 code = 355) BLOOD UREA 11 mg/dL 7-21 NITROGEN (BEAKER) (test code = 354) CREATININE 0.75 mg/dL 0.57-1.25 (BEAKER) (test code = 358) GLUCOSE RANDOM 231 mg/dL 70-105 H (BEAKER) (test code = 652) CALCIUM (BEAKER) 8.9 mg/dL 8.4-10.2 (test code = 697) AST (SGOT) 225 U/L 5-34 H (BEAKER) (test code = 353) ALT (SGPT) 385 U/L 6-55 H (BEAKER) (test code = 347) EGFR (BEAKER) 89 Interpretatio n of eGFR (test code = 1092) mL/min/1.[address] age Description sq m Result G1 Anita l or high >=90 G2 Mildly decreased 60-89 G3a Mildl y to moderately 45-5 9 G3b Moderately to s everely 30-44 G4 Severl y decreased 15-29 G5 Kidney failure <15Reported eGF R is based on the CKD-EPI 2021 equation that d oes not use a race coefficientEsti mated GFR is not as accur ate as Creatinine Sachi sean in predicting glom erular filtration rate . Estimated GFR is not appl icable for dialysis patien ts Tobacco Wrapping Machine Tender ID - ADMINSpecimen moderately ictericMR ABDOMEN WITHOUT IV CONTRAST [id number] 09:36:56 [facility] : 1960 Sex: FMRCP (magnetic resonance cholangiopancreatography)HISTORY: Intermediate risk for choledocholithiasisComparison: NoneTechnique: Multiplanar and multisequence MRI images of the abdomen wereobtained without contrast. Three-dimensional reconstructed images of thebiliary tree are also reviewed.FINDINGS:The study is significantly limited by patient respiratory motion.The visualized portions of the common bile duct appear normal incaliber. No definite intrahepatic biliary dilation. No pancreaticductal dilation. No definite defect is seen within the biliary tree. The gallbladder contains layering sludge versus stones. There isrelative decompression of the gallbladder, which shows concentric wallthickening and mild pericholecystic fluid.The liver demonstrates diffuse signal dropout on T1 in phase and out ofphaseimages, consistent with diffuse hepatic steatosis. Benignsubcentimeter cyst within the right hepatic lobe.Unremarkable appearance of the pancreas, spleen, adrenal glands, andkidneys.The visualized bowel loops appear normal in caliber.No lymphadenopathy is seen within the abdomen.No suspicious osseous l esions.IMPRESSION:Impression:1. Significantly limited study due to patient respiratory motion.2. Within the limitations of this examination, no definite findings ofbiliary obstruction.3. Cholelithiasisversus biliary sludge. Concentric bladder wallthickening and mild pericholecystic fluid, for which [place] cholecystitiscannot be excluded.4. Diffuse hepatic steatosis.Electronically Signed By: Eduardo Barth MD02/12/2023 09:39 CDTWorkstation Name: [id number] W/PLT COUNT & AUTO [id number] 09:20:00 Test Item Value Reference Range Interpretation Comments WHITE BLOOD CELL COUNT (BEAKER) 8.2 K/ L 3.5-10.5 (test code = 775) RED BLOOD CELL COUNT (BEAKER) 4.89 M/ L 3.93-5.22 (test code = 761) HEMOGLOBIN (BEAKER) (test code = 14.8 GM/DL 11.2-15.7 410) HEMATOCRIT (BEAKER) (test code = 43.3 % 34.1-44.9 411) MEAN CORPUSCULAR VOLUME (BEAKER) 89 fL 79-95 (test code = 753) MEAN CORPUSCULAR HEMOGLOBIN 30.3 pg 25.6-32.2 (BEAKER) (test code = 751) MEAN CORPUSCULAR HEMOGLOBIN CONC 34.2 GM/DL 32.2-35.5 (BEAKER) (test code = 752) RED CELL DISTRIBUTION WIDTH 12.5 % 11.7-14.4 (BEAKER) (test code = 412) PLATELET COUNT (BEAKER) (test 221 K/CU MM 150-450 code = 756) MEAN PLATELET VOLUME (BEAKER) 10.7 fL 9.4-12.3 (test code = 754) NUCLEATED RED BLOOD CELLS 0 /100 WBC 0-0 (BEAKER) (test code = 413) NEUTROPHILS RELATIVE PERCENT 84 % (BEAKER) (test code = 429) LYMPHOCYTES RELATIVE PERCENT 9 % (BEAKER) (test code = 430) MONOCYTES RELATIVE PERCENT 5 % (BEAKER) (test code = 431) EOSINOPHILS RELATIVE PERCENT 2 % (BEAKER) (test code = 432) BASOPHILS RELATIVE PERCENT 0 % (BEAKER) (test code = 437) NEUTROPHILS ABSOLUTE COUNT 6.85 K/ L 1.56-6.13 H (BEAKER) (test code = 670) LYMPHOCYTES ABSOLUTE COUNT 0.72 K/ L 1.18-3.74 L (BEAKER) (test code = 414) MONOCYTES ABSOLUTE COUNT (BEAKER) 0.40 K/ L 0.24-0.36 H (test code = 415) EOSINOPHILS ABSOLUTE COUNT 0.12 K/ L 0.04-0.36 (BEAKER) (test code = 416) BASOPHILS ABSOLUTE COUNT (BEAKER) 0.03 K/ L 0.01-0.08 (test code = 417) IMMATURE GRANULOCYTES-RELATIVE 0.50 % 0.00-1.00 PERCENT (BEAKER) (test code = 2801) POCT-GLUCOSE [id number] 08:44:37 Test Item Value Reference Range Interpretation Comments POC-GLUCOSE METER 205 mg/dL 70-110 H : TESTED A T [facility] 6720 (BEAKER) (test code = [facility], [facility]) [id number]: Tobacco Wrapping Machine Tender/Techni elyssa ID = [id number] for Arnel abigailtoy Lisbeth POCT-GLUCOSE [id number] 22:40:10 Test Item Value Reference Range Interpretation Comments POC-GLUCOSE METER 236 mg/dL 70-110 H : TESTED A T [facility] 6720 (BEAKER) (test code = [facility], 153) [address]: Tobacco Wrapping Machine Tender/Techni elyssa ID = [id number] for Es pinoza, Estephanie POCT-GLUCOSE [id number] 17:07:53 Test Item Value Reference Range Interpretation Comments POC-GLUCOSE METER 304 mg/dL 70-110 H : TESTED A T [facility] 6720 (BEAKER) (test code = [facility], 153) [id number]: Tobacco Wrapping Machine Tender/Techni elyssa ID = [id number] for [place] LLIAMS, TYNEKA POCT-GLUCOSE [id number] 15:53:17 Test Item Value Reference Range Interpretation Comments POC-GLUCOSE METER 318 mg/dL 70-110 H : TESTED A T [facility] 6720 (BEAKER) (test code = [facility], 153) [address]: Tobacco Wrapping Machine Tender/Techni elyssa ID = [id number] for HI LL, TRICIA LIPID [id number] 13:20:45 Test Item Value Reference Range Interpretation Comments TRIGLYCERIDES (BEAKER) (test code = 74 mg/dL 540) CHOLESTEROL (BEAKER) (test code = 154 mg/dL 631) HDL CHOLESTEROL (BEAKER) (test code 47 mg/dL = 976) LDL CHOLESTEROL CALCULATED (BEAKER) 92 mg/dL (test code = 633) Triglyceride Reference Range: Low Risk <150 Borderline 150-199 High Risk 200- 499 Very High Risk >=500Cholesterol Reference Range: Low Risk <200 Borderline 200-239 High Risk >240HDL Cholesterol Reference Range: Low Risk >=60 High Risk <40LDL Cholesterol Reference Range: Optimal <100 Near Optimal 100-129 Borderline 130-159 High 160-189 Very High >=190 Tobacco Wrapping Machine Tender ID - ADMINSpecimen amanda ictericPOCT-GLUCOSE [id number] 12:38:49 Test Item Value Reference Range Interpretation Comments POC-GLUCOSE METER 367 mg/dL 70-110 H : TESTED A T [facility] 6720 (BEAKER) (test code = [facility] [place], 1538) [id number]: Tobacco Wrapping Machine Tender/Techni elyssa ID = [id number] for [place] LLIA, TYNEKA [id number] 12:32:38 Test Item Value Reference Range Interpretation Comments MAGNESIUM (BEAKER) (test code = 1.5 mg/dL 1.6-2.6 L 627) Tobacco Wrapping Machine Tender ID - SHEA [id number] 12:32:38 Test Item Value Reference Range Interpretation Comments PHOSPHORUS (BEAKER) (test code = 3.4 mg/dL 2.3-4.7 604) Tobacco Wrapping Machine Tender ID - SHEA WBASIC METABOLIC [id number] 12:32:38 Test Item Value Reference Range Interpretation Comments SODIUM (BEAKER) 134 meq/L 136-145 L (test code = 381) POTASSIUM 3.6 meq/L 3.5-5.1 (BEAKER) (test code = 379) CHLORIDE (BEAKER) 97 meq/L 98-107 L (test code = 382) CO2 (BEAKER) 26 meq/L 22-29 (test code = 355) BLOOD UREA 9 mg/dL 7-21 NITROGEN (BEAKER) (test code = 354) CREATININE 0.75 mg/dL 0.57-1.25 (BEAKER) (test code = 358) GLUCOSE RANDOM 389 mg/dL 70-105 H (BEAKER) (test code = 652) CALCIUM (BEAKER) 9.0 mg/dL 8.4-10.2 (test code = 697) EGFR (BEAKER) 89 Interpretatio n of eGFR (test code = mL/min/1.73 values Stage De scription 1092) sq m Result G1 Anita l or high >=90 G2 Mildly decreased 60-89 G3a Mildl y to moderately 45-5 9 G3b Moderately to s everely 30-44 G4 Severl y decreased 15-29 G5 Kidney failure <15Reported eGF R is based on the CKD-EPI 2020 equation that d oes not use a race coefficientEsti mated GFR is not as accur ate as Creatinine Sachi sean in predicting glom erular filtration rate . Estimated GFR is not appl icable for dialysis patien ts Tobacco Wrapping Machine Tender ID Samuel SHEA MARGOTpecprince slightly ictericHEPATIC FUNCTION [id number] 12:32:38 Test Item Value Reference Range Interpretation Comments TOTAL PROTEIN (BEAKER) (test code = 6.8 gm/dL 6.0-8.3 770) ALBUMIN (BEAKER) (test code = 1145) 4.0 g/dL 3.5-5.0 BILIRUBIN TOTAL (BEAKER) (test code 3.9 mg/dL 0.2-1.2 H = 377) BILIRUBIN DIRECT (BEAKER) (test 2.9 mg/dL 0.1-0.5 H code = 706) ALKALINE PHOSPHATASE (BEAKER) (test 241 U/L 40-150 H code = 346) AST (SGOT) (BEAKER) (test code = 891 U/L 5-34 H 353) ALT (SGPT) (BEAKER) (test code = 545 U/L 6-55 H 347) Tobacco Wrapping Machine Tender CLAIRE LANDAALD Saran slightly ictericPROTHROMBIN TIME/[id number] 12:10:37 Test Item Value Reference Range Interpretation Comments PROTIME (BEAKER) (test code = 14.6 seconds 11.9-14.2 H 759) INR (BEAKER) (test code = 370) 1.14 <=5.90 RECOMMENDED COUMADIN/WARFARIN INR THERAPY RANGESSTANDARD DOSE: 2.0 - 3.0 Includes: PROPHYLAXIS for venous thrombosis, systemic embolization; TREATMENT for venous thrombosis and/or pulmonary embolus.HIGH RISK: Target INR is 2.5-3.5 for patients with mechanical heart valves.CBC (HEMOGRAM ONLY)2023-02-11 11:47:33 Test Item Value Reference Range Interpretation Comments WHITE BLOOD CELL COUNT (BEAKER) 12.8 K/ L 3.5-10.5 H (test code = 775) RED BLOOD CELL COUNT (BEAKER) 5.18 M/ L 3.93-5.22 (test code = 761) HEMOGLOBIN (BEAKER) (test code = 15.0 GM/DL 11.2-15.7 410) HEMATOCRIT (BEAKER) (test code = 43.9 % 34.1-44.9 411) MEAN CORPUSCULAR VOLUME (BEAKER) 85 fL 79-95 (test code = 753) MEAN CORPUSCULAR HEMOGLOBIN 29.0 pg 25.6-32.2 (BEAKER) (test code = 751) MEAN CORPUSCULAR HEMOGLOBIN CONC 34.2 GM/DL 32.2-35.5 (BEAKER) (test code = 752) RED CELL DISTRIBUTION WIDTH 12.4 % 11.7-14.4 (BEAKER) (test code = 412) PLATELET COUNT (BEAKER) (test 233 K/CU MM 150-450 code = 756) MEAN PLATELET VOLUME (BEAKER) 11.0 fL 9.4-12.3 (test code = 754) NUCLEATED RED BLOOD CELLS 0 /100 WBC 0-0 (BEAKER) (test code = 413)
[2023-03-04] MEDS ORDERED: KETOROLAC 30 MG/ML INJ ONE (23:50)
[2023-03-04 23:56] LABS: Absolute Lymphocytes (CBC) 2.7 K/uL (0.7-4.9); Hematocrit 37.2 % (36.0-45.0); Lymphocytes % 37.4 % (15.3-44.8); MCV 86.3 fL (80-100); MPV 8.8 fL (7.6-11.3); Platelets 296 thou/uL (152-406); RBC Red Blood Cell Count 4.31 M/uL (3.86-4.86)
[2023-03-05 00:16] LABS: Albumin 3.3 g/dL (3.4-5.0); Bilirubin Total 0.5 mg/dL (0.2-1.0); Potassium 3.9 mEq/L (3.5-5.1); Protein, Total 6.7 g/dL (6.4-8.2)
[2023-03-05] MEDS ORDERED: KETOROLAC 30 MG/ML INJ ONE (00:28)
--- NOTE | 2023-03-05 01:29 | ER ---
Nurse's Notes [facility] Name[facility] P[facility] Age: 63 yrs Sex: Female : 1960 Arrival Date: 03/04/2023 Time: 22:43 Bed 8 Private MD: Diagnosis: Upper abdominal pain, unspecified;Fluid Collection Anterior Abdominal Wall Subcutaneous Tissue Presentation: 03/04 23:02 Chief complaint: Patient states: she had a didi procedure done at [facility] on 02/13/23. patient is now reporting a stabbing pain in her right abdomen. patient currently rates her pain as a 7/10. Coronavirus screen: At this time, the client does not indicate any symptoms associated with coronavirus-19. Ebola Screen: No symptoms or risks identified at this time. Initial Sepsis Screen: Does the patient meet any 2 criteria? No. Patient's initial sepsis screen is negative. Does the patient have a suspected source of infection? No. Patient's initial sepsis screen is negative. Risk Assessment: Do you want to hurt yourself or someone else? Patient reports no desire to harm self or others. Onset of symptoms was March 04, 2023. 23:02 Method Of Arrival: Ambulatory ap3 23:02 Acuity: MIGUEL ANGEL 3 ap3 Triage Assessment: 23:04 General: Appears in no apparent distress. Behavior is calm, cooperative, appropriate ap3 for age. Pain: Complains of pain in right upper quadrant and right lower quadrant Pain currently is 7 out of 10 on a pain scale. Quality of pain is described as stabbing, Is intermittent. Neuro: Level of Consciousness is awake, alert, obeys commands, Oriented to person, place, time, situation, Appropriate for age. Cardiovascular: Patient's skin is warm and dry. Respiratory: Airway is patent Respiratory effort is even, unlabored, Respiratory pattern is regular, symmetrical. GI: Reports lower abdominal pain, upper abdominal pain. Historical: - Allergies: 23:04 No Known Allergies; ap3 - PMHx: 23:04 diabetes mellitus; ap3 - Immunization history:: Client reports having NOT received the Covid vaccine. Flu vaccine is not up to date. - Social history:: Smoking status: Patient denies any tobacco usage or history of. Screenin:05 [facility] ED Fall Risk Assessment (Adult) History of falling in the last 3 months, ap3 including since admission No falls in past 3 months (0 pts). Abuse screen: Denies threats or abuse. Nutritional screening: No deficits noted. Tuberculosis screening: No symptoms or risk factors identified. Assessment: 23:54 General: Appears uncomfortable, Behavior is calm, cooperative, appropriate for age. la4 Neuro: Davis Agitation-Sedation Scale (RASS): 0 - Alert and Calm Level of Consciousness is awake, alert, obeys commands, Oriented to person, place, time, situation, Appropriate for age. Cardiovascular: No deficits noted. Reports None Heart tones S1 S2 Capillary refill < 3 seconds Rhythm is regular. Respiratory: No deficits noted. Airway is patent Trachea midline Breath sounds are clear bilaterally. GI: Bowel sounds present X 4 quads. Abd is soft and non tender Abd is non tender X 4 quads Reports upper abdominal pain, Patient currently denies nausea, vomiting. : No deficits noted. Vital Signs: 23:02 BP 123 / 82; Pulse 64; Resp 18; Temp 98.2; Pulse Ox 100% ; Weight 95.25 kg; Pain 7/10; ap3 23:52 BP 141 / 67; Pulse 58; Resp 19; Pulse Ox 97% on R/A; Pain 6/10; la4 03/05 01:12 BP 123 / 79; Pulse 65; Resp 18; Pulse Ox 98% ; la4 01:53 BP 143 / 71; Pulse 66; Resp 20; Pulse Ox 99% on R/A; nw1 03/04 23:02 Pain Scale: Adult ap3 23:52 Pain Scale: Adult la4 03/04 23:52 ruq abdominal pain la4 Vitals: 23:52 Cardiac Rhythm Assessment Regular Sinus rhythm. la4 [place] Coma Score: 23:52 Eye Response: spontaneous(4). Motor Response: obeys commands(6). Verbal Response: la4 oriented(5). Total: 15. ED Course: 22:44 Patient arrived in ED. jj6 22:48 Lalito Dhillon PA is PHCP. cp 22:48 Chris Walker MD is Attending Physician. cp 23:04 Triage completed. ap3 23:05 Arm band placed on right wrist. ap3 23:18 Radha Horn, RN is Primary Nurse. la4 23:52 No apparent distress. Awaiting lab results, Awaiting CT Scan. la4 23:52 Patient has correct armband on for positive identification. Placed in gown. Bed in low la4 position. Call light in reach. Side rails up X2. Provided Education on: plan of care. 23:52 No provider procedures requiring assistance completed. Inserted saline lock: 20 gauge la4 in right forearm, using aseptic technique. 03/05 00:07 CT Stone Protocol In Process Unspecified. EDMS 01:54 IV discontinued, intact, bleeding controlled, No redness/swelling at site. Pressure nw1 dressing applied. Administered Medications: 00:00 Drug: Ketorolac IVP 15 mg IVP once Route: IVP; Site: right forearm; nw1 Medication: 03/04 23:52 VIS not applicable for this client. la4 Outcome: 03/05 01:28 Discharge ordered by . cp 01:53 Discharged to home ambulatory, with significant other, nw1 01:53 Condition: stable 01:53 Discharge instructions given to patient, Instructed on discharge instructions, follow up and referral plans. medication usage, Demonstrated understanding of instructions, follow-up care, medications, 02:21 Patient left the ED. nw1 Signatures: Dispatcher [employer] EDMS Lalito Dhillon PA PA cp Prokisch, Amanda RN RN ap3 Renetta Hebert jj6 Radha Horn RN RN la4 Alannah Stout, RN RN nw1
--- NOTE | 2023-03-05 01:29 | EDPHYS ---
Physician Documentation [facility] Name: Patti Friedman Age: 63 yrs Sex: Female : 1960 Arrival Date: 03/04/2023 Time: 22:43 Bed 8 Private MD: ED Physician Chris Walker HPI: 03/04 23:10 This 63 yrs old Female presents to ER via Ambulatory with complaints of cp Abdominal Pain. 23:10 The patient presents with abdominal pain in the right upper quadrant, right flank. cp Onset: The symptoms/episode began/occurred 1 hour(s) ago. 23:10 The symptoms radiate to right back. Associated signs and symptoms: Pertinent negatives: cp chest pain, constipation, diarrhea, dysuria, fever, vomiting. The symptoms are described as achy. Severity of pain: in the emergency department the pain has improved mildly. 23:10 Patient reports having cholecystectomy 02-13-2023. cp Historical: - Allergies: 23:04 No Known Allergies; ap3 - PMHx: 23:04 diabetes mellitus; ap3 - Immunization history:: Client reports having NOT received the Covid vaccine. Flu vaccine is not up to date. - Social history:: Smoking status: Patient denies any tobacco usage or history of. ROS: 23:15 Constitutional: Negative for body aches, chills, fever, poor PO intake, cp 23:15 Eyes: Negative for injury, pain, redness, and discharge, cp 23:15 ENT: Negative for drainage from ear(s), ear pain, sore throat, difficulty swallowing, difficulty handling secretions, 23:15 Cardiovascular: Negative for chest pain, edema, palpitations, 23:15 Respiratory: Negative for cough, shortness of breath, wheezing, 23:15 Abdomen/GI: Positive for abdominal pain, Negative for vomiting, diarrhea, constipation, anorexia, 23:15 Back: Positive for radiated pain, 23:15 : Negative for urinary symptoms, hematuria, 23:15 Neuro: Negative for altered mental status, headache, weakness, 23:15 All other systems are negative, Exam: 23:20 Constitutional: The patient appears in no acute distress, alert, awake, cp non-diaphoretic, non-toxic, well developed, well nourished, obese, uncomfortable, 23:20 Head/Face: Normocephalic, atraumatic. cp 23:20 Eyes: Periorbital structures: appear normal, Conjunctiva: normal, no exudate, no injection, Sclera: no appreciated abnormality, Lids and lashes: appear normal, bilaterally, 23:20 ENT: External ear(s): are unremarkable, Nose: is normal, Mouth: Lips: moist, Oral mucosa: pink and intact, moist, Posterior pharynx: is normal, airway is patent, no erythema, no exudate, 23:20 Chest/axilla: Inspection: normal, 23:20 Cardiovascular: Rate: normal, Rhythm: regular, Edema: is not appreciated, JVD: is not appreciated, 23:20 Respiratory: the patient does not display signs of respiratory distress, Respirations: normal, no use of accessory muscles, no retractions, labored breathing, is not present, Breath sounds: are clear throughout, no decreased breath sounds, no stridor, no wheezing, 23:20 Abdomen/GI: Inspection: scar(s), Bowel sounds: active, all quadrants, Palpation: soft, in all quadrants, mild abdominal tenderness, in the umbilical area, mild swelling, ecchymosis, rebound tenderness, is not appreciated, involuntary guarding, is not appreciated, 23:20 Back: ROM is normal, CVA tenderness, is absent, vertebral tenderness, is not appreciated, 23:20 Skin: cellulitis, is not appreciated, 23:20 Neuro: Orientation: is normal, Mentation: is normal, Motor: moves all fours, strength is normal, Gait: is steady, Vital Signs: 23:02 BP 123 / 82; Pulse 64; Resp 18; Temp 98.2; Pulse Ox 100% ; Weight 95.25 kg; Pain 7/10; ap3 23:52 BP 141 / 67; Pulse 58; Resp 19; Pulse Ox 97% on R/A; Pain 6/10; la4 03/05 01:12 BP 123 / 79; Pulse 65; Resp 18; Pulse Ox 98% ; la4 01:53 BP 143 / 71; Pulse 66; Resp 20; Pulse Ox 99% on R/A; nw1 03/04 23:02 Pain Scale: Adult ap3 23:52 Pain Scale: Adult la4 03/04 23:52 ruq abdominal pain la4 [place] Coma Score: 23:52 Eye Response: spontaneous(4). Motor Response: obeys commands(6). Verbal Response: la4 oriented(5). Total: 15. MDM: 23:19 Patient medically screened. 03/05 01:27 Data reviewed: vital signs, nurses notes, lab test result(s), radiologic studies, CT cp scan, and as a result, I will discharge patient. 01:27 Differential diagnosis: non-specific abd pain, pancreatitis, Peritonitis, cp Pyelonephritis, Ureterolithiasis, urinary tract infection, choledocholithiasis. I considered the following discharge prescriptions or medication management in the emergency department Medications were administered in the Emergency Department. See MAR. Care significantly affected by the following chronic conditions: Diabetes. Counseling: I had a detailed discussion with the patient and/or guardian regarding the historical points, exam findings, and any diagnostic results supporting the discharge/admit diagnosis, lab results, radiology results, the need for outpatient follow up, a family practitioner, to return to the emergency department if symptoms worsen or persist or if there are any questions or concerns that arise at home. Response to treatment: the patient's symptoms have markedly improved after treatment, and as a result, I will discharge patient. Special discussion: Based on the patient's Hx, exam, and Dx evaluation, there is no indication for emergent surgery or inpatient Tx. It is understood by the patient/guardian that if the Sx's persist or worsen they need to return immediately for re-evaluation. 03/04 23:06 Order name: CBC with Diff; Complete Time: 00:17 03/05 00:17 Interpretation: Reviewed. 03/04 23:06 Order name: CMP; Complete Time: 00:16 03/05 00:16 Interpretation: Normal except: NA 134; GLUC 279; GFR 75; ALK 199; CA 8.2; ALB 3.3; A/G cp 1.0. 03/04 23:06 Order name: Lipase; Complete Time: 00:16 03/05 00:17 Interpretation: Reviewed. 03/04 23:06 Order name: Urinalysis w/ reflexes; Complete Time: 21:18 03/04 23:06 Order name: PT-INR; Complete Time: 21:18 03/05 01:38 Order name: Urine Culture EDMS 03/04 23:20 Order name: CT Stone Protocol 03/04 23:06 Order name: IV Saline Lock; Complete Time: 23:52 03/04 23:06 Order name: Labs collected and sent; Complete Time: 23:52 cp Administered Medications: 00:00 Drug: Ketorolac IVP 15 mg IVP once Route: IVP; Site: right forearm; nw1 Disposition Summary: 03/05/23 01:28 Discharge Ordered Notes: Location: Home cp Problem: new cp Symptoms: have improved cp Condition: Stable cp Diagnosis - Upper abdominal pain, unspecified cp - Fluid Collection Anterior Abdominal Wall Subcutaneous Tissue cp Followup: cp - With: Private Physician - When: 2 - 3 days - Reason: Recheck today's complaints Discharge Instructions: - Discharge Summary Sheet cp - Abdominal Pain, Adult cp Forms: - Medication Reconciliation Form cp - Thank You Letter cp - Antibiotic Education cp - Prescription Opioid Use cp - Patient Portal Instructions cp - Leadership Thank You Letter cp Prescriptions: - Ibuprofen 800 mg Oral Tablet - take 1 tablet ORAL route every 8 hours As needed take with food; 30 tablet; cp Refills: 0, Product Selection Permitted Addendum: 03/06/2023 02:56 I agree with the assessment and plan of care. e c2 Signatures: Dispatcher [employer] EDLalito Ansari PA PA cp Mony Calabrese, RN RN ap3 Chris Walker MD MD ec2 Alannah Stout, RN RN nw1
[2023-03-05 01:32] LABS: Protime INR 1.08
[2023-03-05 01:33] LABS: Specific Gravity 1.015 (1.005-1.030); Urine Bacteria None Seen /HPF (<20); Urine Bilirubin NEGATIVE (Negative); Urine Blood 1+ (Negative); Urine Clarity Extremely Turbid (Clear); Urine Color Light-Yellow (Yellow); Urine Crystals Unidentified Few /HPF (None Seen); Urine Glucose 3+ (Negative); Urine Mucus Slight /HPF (None Seen); Urine Protein TRACE (Negative); Urine Urobilinogen Normal (Normal); Urine WBC Clump Occasional /HPF (None Seen); Urine pH 7.5 (5.0-7.0)
[2023-03-05 02:25] VITALS: TEMP 98.2
[2023-03-05 02:30] VITALS: BP 143/71; O2SAT 99
--- NOTE | 2023-03-06 10:47 | RAD REPORT ---
EXAM DESCRIPTION: CT ABDOMEN AND PELVIS WITHOUT CONTRAST CLINICAL HISTORY: Right flank pain COMPARISON: 03/14/2023 TECHNIQUE: CT of the abdomen and pelvis without IV contrast. Evaluation of the solid organs and vasc ulature is suboptimal due to lack of IV contrast. This exam was performed according to our department al dose-optimization program, which includes automated exposure control, adjustment of the mA and/or kV according to patient size and/or use of iterative reconstruction technique. FINDINGS: Lung Bases: The visualized lung bases are clear. Bones: Mild facet arthropathy. Endplate spondylosis of the spine. Abdomen: Liver: Hepatomegaly. Gallbladder: Prior cholecystectomy. Spleen, Pancreas, and Adrenal Glands: The spleen, pancreas, and adrenal glands are unremarkable. Kidneys: The kidneys have normal size without evidence of hydronephrosis. No obstructing ureteral bel culi. Vasculature: Aortoiliac atherosclerosis. IVC is unremarkable. Stomach: The stomach and duodenum have normal course. Duodenal diverticulum. Other: No free intraperitoneal air. No free fluid or lymphadenopathy. Indeterminate ill-defined f luid collection in the anterior abdominal wall subcutaneous soft tissues measuring 4.0 cm. Pelvis: Bladder: Urinary bladder is unremarkable. Bowel: No dilated loops of large or small bowel. Scattered diverticula of the colon. Moderate amoun t of stool. Appendix: Normal appendix. Pelvis: Uterus is not enlarged. IMPRESSION: 1. No acute inflammatory or obstructive process identified. 2. Hepatomegaly. 3. Diverticulosis without evidence of acute diverticulitis. 4. Indeterminate ill-defined fluid collection in the anterior abdominal wall subcutaneous soft tiss ues measuring 4.0 cm. This may represent a postprocedural seroma or hematoma. Electronically signed by: Juancarlos Rivera DO 03/05/2023 12:36 AM PREPLEATER M Due to temporary technical issues with the PACS/Fluency reporting system, reports are being signed by the in house radiologist without review as a courtesy to ensure prompt reporting. The interpreting r adiologist is fully responsible for the content of the report.
== END 2023-03-05 02:21 | disposition home or self-care (01) ==
LOC: ER 22:43
DX: R10.9 Unspecified abdominal pain (principal); R18.8 Other ascites; E11.9 Type 2 diabetes mellitus without complications; Z90.49 Acquired absence of other specified parts of digestive tract
CPT/HCPCS: 36415; 74176; 76377; 80053; 81001; 83690; 85025; 85610; 87086; 87088; 96374; 99284

== ENCOUNTER 2023-07-24 17:49 | Emergency (ER) | payer BC ==
[2023-07-24] MEDS ORDERED: KETOROLAC 30 MG/ML INJ ONE (19:11)
[2023-07-24] MEDS ORDERED: ONDANSETRON 4 MG/2 ML VIAL ONE (19:11)
[2023-07-24] MEDS ORDERED: NA CHLORIDE 0.9% 1,000 ML ONE (19:11)
[2023-07-24] MEDS ORDERED: FAMOTIDINE 20 MG/2 ML VIAL IV ONE (19:11)
[2023-07-24 19:22] LABS: Absolute Basophils 0.1 K/uL (0-0.5); Absolute Eosinophils 0.3 K/uL (0-0.5); Absolute Lymphocytes (CBC) 2.5 K/uL (0.7-4.9); Absolute Monocytes 0.5 K/uL (0.1-1.3); Absolute Neutrophil 5.4 K/uL (1.8-8.0); Basophils % 0.7 % (0-1.3); Eosinophils % 3.4 % (0-4.4); Hematocrit 39.9 % (36.0-45.0); Hemoglobin 13.8 g/dL (12.0-15.0); MCH 30.1 pg (27.0-35.0); MCHC 34.5 g/dL (32.0-36.0); MCV 87.3 fL (80-100); MPV 9.6 fL (7.6-11.3); Monocytes % 5.3 % (3.3-12.3); Neutrophils % 61.6 % (41.7-73.7); Platelets 311 thou/uL (152-406); RBC Red Blood Cell Count 4.57 M/uL (3.86-4.86); Red Cell Distribution Width 12.8 % (12.1-15.2)
[2023-07-24 19:38] LABS: Albumin 3.7 g/dL (3.4-5.0); Albumin/Globulin Ratio 1.1 (1.1-1.8); Anion Gap 8.9 mEq/L (5.0-15.0); Bilirubin Total 0.4 mg/dL (0.2-1.0); Globulin 3.4 g/dL (2.3-3.5); Potassium 3.9 mEq/L (3.5-5.1); Protein, Total 7.1 g/dL (6.4-8.2)
--- NOTE | 2023-07-24 20:51 | RAD REPORT ---
EXAM DESCRIPTION: CTAbdomen Pelvis W Contrast - 07/24/2023 8:45 pm CLINICAL HISTORY: Abdominal pain. ABD PAIN COMPARISON: <Comparisons> TECHNIQUE: Biphasic CT imaging of the abdomen and pelvis was performed with 100 ml non-ionic IV cont rast. All CT scans are performed using dose optimization technique as appropriate and may include automated exposure control or mA/KV adjustment according to patient size. FINDINGS: The lung bases are clear.Small hiatal hernia. The liver demonstrates fatty liver. Cholecystectomy. Spleen, pancreas, adrenal glands and kidneys are within normal limits. No bowel obstruction, free air, free fluid or abscess. Prominent sigmoid diverticulosis coli without diverticulitis. The appendix is normal. No evidence of significant lymphadenopathy. No suspicious bony findings. Mild lower lumbar degenerative changes. IMPRESSION: No acute intra-abdominal or pelvic finding. Fatty liver. Sigmoid diverticulosis coli without diverticulitis.
[2023-07-24] MEDS ORDERED: DICYCLOMINE HCL 10 MG CAP ONE (21:17)
--- NOTE | 2023-07-24 21:30 | EDPHYS ---
Physician Documentation [facility] Name: Patti Friedman Age: 63 yrs Sex: Female : 1960 Arrival Date: 07/24/2023 Time: 17:49 Bed 16 Private MD: ED Physician Xiang Shore HPI: 07/23 18:30 This 63 yrs old Female presents to ER via Ambulatory with complaints of cp Abdominal Pain. 18:30 The patient presents with abdominal pain in the upper abdomen, mid abdomen. Onset: The cp symptoms/episode began/occurred today, after eating. Associated signs and symptoms: Pertinent positives: nausea, Pertinent negatives: chest pain, constipation, diarrhea, fever, shortness of breath, vomiting. 18:30 The symptoms do not radiate. cp 18:30 The symptoms are described as constant. Severity of pain: in the emergency department cp the pain is unchanged despite home interventions. Historical: - Allergies: 18:08 No Known Allergies; as6 - PMHx: 18:08 diabetes mellitus; Hypercholesterolemia; as6 - PSHx: 18:08 Cholecystectomy; as6 - Immunization history:: Adult Immunizations up to date. - Infectious Disease History:: Denies. - Social history:: Smoking status: Patient denies any tobacco usage or history of. ROS: 18:35 Constitutional: Negative for body aches, chills, fever, poor PO intake, cp 18:35 Eyes: Negative for injury, pain, redness, and discharge, cp 18:35 ENT: Negative for drainage from ear(s), ear pain, sore throat, difficulty swallowing, difficulty handling secretions, 18:35 Cardiovascular: Negative for chest pain, edema, palpitations, 18:35 Respiratory: Negative for cough, shortness of breath, wheezing, 18:35 Abdomen/GI: Positive for abdominal pain, nausea, Negative for vomiting, diarrhea, constipation, anorexia, black/tarry stool, rectal bleeding, 18:35 Back: Negative for pain at rest, pain with movement, 18:35 : Negative for urinary symptoms, vaginal bleeding, 18:35 Neuro: Negative for altered mental status, dizziness, headache, syncope, weakness, 18:35 All other systems are negative, Exam: 18:40 Constitutional: The patient appears in no acute distress, alert, awake, non-toxic, well cp developed, well nourished, uncomfortable, 18:40 Head/Face: Normocephalic, atraumatic. cp 18:40 Eyes: Periorbital structures: appear normal, Conjunctiva: normal, no exudate, no injection, Sclera: no appreciated abnormality, Lids and lashes: appear normal, bilaterally, 18:40 ENT: External ear(s): are unremarkable, Nose: is normal, Mouth: Lips: moist, Oral mucosa: pink and intact, moist, Posterior pharynx: is normal, airway is patent, no erythema, no exudate, 18:40 Chest/axilla: Inspection: normal, 18:40 Cardiovascular: Rate: normal, Rhythm: regular, Edema: is not appreciated, JVD: is not appreciated, 18:40 Respiratory: the patient does not display signs of respiratory distress, Respirations: normal, no use of accessory muscles, no retractions, labored breathing, is not present, Breath sounds: are clear throughout, no decreased breath sounds, no stridor, no wheezing, 18:40 Abdomen/GI: Inspection: abdomen appears normal, Bowel sounds: active, all quadrants, Palpation: soft, in all quadrants, moderate abdominal tenderness, in the epigastric area, umbilical area, right upper quadrant and left upper quadrant, rebound tenderness, is not appreciated, involuntary guarding, is not appreciated, 18:40 Back: pain, is absent, ROM is normal, 18:40 Neuro: Orientation: to person, place \T\ time. Mentation: is normal, Motor: moves all fours, strength is normal, Sensation: is normal, Vital Signs: 18:06 BP 154 / 89; Pulse 63; Resp 18 S; Temp 97.1(TE); Pulse Ox 98% on R/A; Weight 97.98 kg as6 (R); Height 5 ft. 4 in. (R); Pain 5/10; 19:30 BP 136 / 91; Pulse 67; Resp 18; Pulse Ox 98% ; vc1 21:00 BP 138 / 74; Pulse 62; Resp 16; Temp 97.6; Pulse Ox 99% ; vc1 18:06 Body Mass Index 37.08 (97.98 kg, 162.56 cm) as6 18:06 Pain Scale: Adult as6 MDM: 18:11 Patient medically screened. cp 19:00 Differential diagnosis: appendicitis, diverticulitis, gastritis, non-specific abd pain, cp pancreatitis, Peritonitis, Pyelonephritis, Ureterolithiasis, urinary tract infection, choledocholithiasis. 21:30 Data reviewed: vital signs, nurses notes, lab test result(s), radiologic studies, CT cp scan. 21:30 I considered the following discharge prescriptions or medication management in the emergency department Medications were administered in the Emergency Department. See MAR. Care significantly affected by the following chronic conditions: Diabetes. Counseling: I had a detailed discussion with the patient and/or guardian regarding the historical points, exam findings, and any diagnostic results supporting the discharge/admit diagnosis, lab results, radiology results, to return to the emergency department if symptoms worsen or persist or if there are any questions or concerns that arise at home. Response to treatment: the patient's symptoms have markedly improved after treatment, and as a result, I will discharge patient. Special discussion: Based on the patient's Hx, exam, and Dx evaluation, there is no indication for emergent surgery or inpatient Tx. It is understood by the patient/guardian that if the Sx's persist or worsen they need to return immediately for re-evaluation. 07/23 18:19 Order name: CBC with Diff; Complete Time: 21:03 07/23 21:03 Interpretation: Reviewed. 07/23 18:19 Order name: CMP; Complete Time: 21:03 07/23 21:03 Interpretation: Normal except: GLUC 261; GFR 87; AST 11; ALK 173. 07/23 18:19 Order name: Lipase; Complete Time: 21:03 07/23 21:03 Interpretation: Reviewed. 07/23 18:19 Order name: Urinalysis w/ reflexes 07/23 18:19 Order name: CT Abd/Pelvis - IV Contrast Only; Complete Time: 21:03 07/23 21:04 Interpretation: Report reviewed. 07/23 18:19 Order name: IV Saline Lock; Complete Time: 18:44 07/23 18:19 Order name: Labs collected and sent; Complete Time: 18:44 07/23 21:04 Order name: PO challenge; Complete Time: 21:30 cp Administered Medications: 19:22 Drug: Famotidine IVP 20 mg IVP once; dilute with 10 mL 0.9% NaCl; give over 2 minutes vc1 Route: IVP; Site: right antecubital; 21:35 Follow up: Response: No adverse reaction; Marked relief of symptoms vc1 19:23 Drug: NS 0.9% IV 1000 ml IV at 999 ml/hr Per protocol; 1000 mL bolus Route: IV; Rate: vc1 999 ml/hr; Site: right antecubital; 19:23 Drug: TORadol - Ketorolac IVP 15 mg IVP once Route: IVP; Site: right antecubital; vc1 21:36 Follow up: Response: No adverse reaction; Marked relief of symptoms vc1 19:23 Drug: Ondansetron IVP 4 mg IVP once; over 2 minutes Route: IVP; Site: right antecubital;vc1 21:35 Follow up: Response: No adverse reaction; Marked relief of symptoms vc1 21:30 Drug: Dicyclomine PO 20 mg PO once Route: PO; vc1 21:35 Follow up: Response: No adverse reaction vc1 Disposition Summary: 07/24/23 21:30 Discharge Ordered Notes: Location: Home cp Problem: new cp Symptoms: have improved cp Condition: Stable cp Diagnosis - Nausea cp - Abdominal pain, unspecified cp Followup: cp - With: Private Physician - When: 2 - 3 days - Reason: Worsening of condition Discharge Instructions: - Discharge Summary Sheet cp - Abdominal Pain, Adult cp - Nausea, Adult cp Forms: - Medication Reconciliation Form cp - Thank You Letter cp - Antibiotic Education cp - Prescription Opioid Use cp - Patient Portal Instructions cp - Leadership Thank You Letter cp Prescriptions: - Zofran 4 mg Oral Tablet - take 1 tablet ORAL route every 12 hours As needed; 20 tablet; Refills: 0, cp Product Selection Permitted - dicyclomine 20 mg Oral tablet - take 1 tablet ORAL route 4 times per day; 30 tablet; Refills: 0, Product cp Selection Permitted Signatures: Dispatcher [employer] EDMS Lalito Dhillon PA PA cp Farooq Arevalo RN RN as6 America Mckeon RN RN vc1 Corrections: (The following items were deleted from the chart) 18:19 18:19 CBC+H.LAB.BRZ ordered. EDMS EDMS 18:19 18:19 COMPREHENSIVE METABOLIC PANEL+C.LAB.BRZ ordered. EDMS EDMS 18:19 18:19 LIPASE+C.LAB.BRZ ordered. EDMS EDMS 18:19 18:19 Urinalysis+U.LAB.BRZ ordered. EDMS EDMS 18: 18:19 Abdomen Pelvis W Con+CT.RAD.BRZ ordered. EDMS EDMS
--- NOTE | 2023-07-24 21:30 | ER ---
Nurse's Notes [facility] Name: Patti Friedman Age: 63 yrs Sex: Female : 1960 Arrival Date: 07/24/2023 Time: 17:49 Bed 16 Private MD: Diagnosis: Nausea;Abdominal pain, unspecified Presentation: 07/23 18:08 Chief complaint: Patient states: abdominal pain and nausea that started today. pt as6 reports pain worse after meals. Coronavirus screen: At this time, the client does not indicate any symptoms associated with coronavirus-19. Ebola Screen: No symptoms or risks identified at this time. Initial Sepsis Screen: Does the patient meet any 2 criteria? No. Patient's initial sepsis screen is negative. Does the patient have a suspected source of infection? No. Patient's initial sepsis screen is negative. Risk Assessment: Do you want to hurt yourself or someone else? Patient reports no desire to harm self or others. Onset of symptoms was July 24, 2023. 18:08 Acuity: MIGUEL ANGEL 3 as6 18:08 Method Of Arrival: Ambulatory as6 Triage Assessment: 18:45 General: Appears uncomfortable, Behavior is calm, cooperative. Pain: Complains of pain as6 in abdomen. GI: Reports lower abdominal pain, upper abdominal pain, nausea. Historical: - Allergies: 18:08 No Known Allergies; as6 - PMHx: 18:08 diabetes mellitus; Hypercholesterolemia; as6 - PSHx: 18:08 Cholecystectomy; as6 - Immunization history:: Adult Immunizations up to date. - Infectious Disease History:: Denies. - Social history:: Smoking status: Patient denies any tobacco usage or history of. Screenin:24 [facility] ED Fall Risk Assessment (Adult) History of falling in the last 3 months, vc1 including since admission No falls in past 3 months (0 pts) Confusion or Disorientation No (0 pts) Intoxicated or Sedated No (0 pts) Impaired Gait No (0 pts) Mobility Assist Device Used No (0 pt) Altered Elimination No (0 pt) Score/Fall Risk Level 0 - 2 = Low Risk Oriented to surroundings, Maintained a safe environment, Educated pt \T\ family on fall prevention, incl call for assistance when getting out of bed. Abuse screen: Denies threats or abuse. Nutritional screening: No deficits noted. Tuberculosis screening: No symptoms or risk factors identified. Assessment: 19:15 General: Appears in no apparent distress. comfortable, Behavior is calm, cooperative, vc1 appropriate for age. Pain: Complains of pain in epigastric area, right upper quadrant and left upper quadrant Pain does not radiate. Pain currently is 8 out of 10 on a pain scale. Quality of pain is described as sharp, Pain began suddenly, after lunch Is continuous, Aggravated by increased activity, repositioning, Noted to be grimacing, resistant to movement, Also complains of. Neuro: Level of Consciousness is awake, alert, obeys commands, Oriented to person, place, time, situation, Appropriate for age. Cardiovascular: No deficits noted. Respiratory: Airway is patent Respiratory effort is even, unlabored, Respiratory pattern is regular, symmetrical, Breath sounds are clear bilaterally. GI: Bowel sounds present X 4 quads. Abd is soft Abdomen is tender to palpation in right upper quadrant and left upper quadrant Reports upper abdominal pain, epigastric pain, nausea, Patient currently denies vomiting. : No deficits noted. No signs and/or symptoms were reported regarding the genitourinary system. EENT: No deficits noted. No signs and/or symptoms were reported regarding the EENT system. Derm: Skin is intact, is healthy with good turgor, Skin is pink, warm \T\ dry. Skin temperature is warm. 21:33 Reassessment: Patient and/or family updated on plan of care and expected duration. Pain vc1 level reassessed. Patient is alert, oriented x 3, equal unlabored respirations, skin warm/dry/pink. Patient states feeling better. Patient states symptoms have improved. Vital Signs: 18:06 BP 154 / 89; Pulse 63; Resp 18 S; Temp 97.1(TE); Pulse Ox 98% on R/A; Weight 97.98 kg as6 (R); Height 5 ft. 4 in. (R); Pain 5/10; 19:30 BP 136 / 91; Pulse 67; Resp 18; Pulse Ox 98% ; vc1 21:00 BP 138 / 74; Pulse 62; Resp 16; Temp 97.6; Pulse Ox 99% ; vc1 18:06 Body Mass Index 37.08 (97.98 kg, 162.56 cm) as6 18:06 Pain Scale: Adult as6 ED Course: 17:52 Patient arrived in ED. mg5 18:02 Lalito Dhillon PA is PHCP. cp 18:02 Xiang Shore MD is Attending Physician. cp 18:06 Arm band placed on right wrist. as6 18:09 Triage completed. as6 18:44 CBC with Diff Sent. as6 18:44 CMP Sent. as6 18:44 Lipase Sent. as6 18:44 Inserted saline lock: 20 gauge in right antecubital area, using aseptic technique. as6 Blood collected. 19:23 Warm blanket given. vc1 19:32 Patient has correct armband on for positive identification. Bed in low position. Call vc1 light in reach. Adult w/ patient. Pulse ox on. NIBP on. 20:47 CT Abd/Pelvis - IV Contrast Only In Process Unspecified. EDMS 20:48 America Mckeon, RN is Primary Nurse. vc1 Administered Medications: 19:22 Drug: Famotidine IVP 20 mg IVP once; dilute with 10 mL 0.9% NaCl; give over 2 minutes vc1 Route: IVP; Site: right antecubital; 21:35 Follow up: Response: No adverse reaction; Marked relief of symptoms vc1 19:23 Drug: NS 0.9% IV 1000 ml IV at 999 ml/hr Per protocol; 1000 mL bolus Route: IV; Rate: vc1 999 ml/hr; Site: right antecubital; 19:23 Drug: TORadol - Ketorolac IVP 15 mg IVP once Route: IVP; Site: right antecubital; vc1 21:36 Follow up: Response: No adverse reaction; Marked relief of symptoms vc1 19:23 Drug: Ondansetron IVP 4 mg IVP once; over 2 minutes Route: IVP; Site: right antecubital;vc1 21:35 Follow up: Response: No adverse reaction; Marked relief of symptoms vc1 21:30 Drug: Dicyclomine PO 20 mg PO once Route: PO; vc1 21:35 Follow up: Response: No adverse reaction vc1 Medication: 19:24 VIS not applicable for this client. vc1 Outcome: 21:30 Discharge ordered by . cp 21:42 Patient left the ED. vc1 Signatures: Dispatcher [employer] EDMS Lalito Dhillon PA PA cp Slawson, Ashby, RN RN as6 America Mckeon RN RN vc1 Loraine Hooker mg5
[2023-07-24 22:31] LABS: Specific Gravity 1.016 (1.005-1.030); Sqamous Epithelial <5 /HPF (None Seen); Urine Bacteria 20-50 /HPF (<20); Urine Bilirubin NEGATIVE (Negative); Urine Blood Negative (Negative); Urine Clarity Extremely Turbid (Clear); Urine Color Light-Yellow (Yellow); Urine Culture Reflex Order NOT NEEDED; Urine Glucose 2+ (Negative); Urine Ketones NEGATIVE (Negative); Urine Microscopic Reflex YN ORDER UMIC; Urine Mucus Slight /HPF (None Seen); Urine Nitrite NEGATIVE (Negative); Urine Protein NEGATIVE (Negative); Urine RBC <5 /HPF (None Seen); Urine Urobilinogen Normal (Normal); Urine Yeast (Budding) Trace /HPF (None Seen); Urine pH 7.5 (5.0-7.0)
[2023-07-25 03:46] VITALS: BP 138/74; TEMP 97.6; O2SAT 99
== END 2023-07-24 21:42 | disposition home or self-care (01) ==
LOC: ER 17:49
DX: R11.0 Nausea (principal); R10.13 Epigastric pain
CPT/HCPCS: 85025; 81001; 36415; 83690; 80053; 74177; 96375; 96374; 99284; Q9967; J2405; J7030